=== PATIENT | female | born 1955 | race Caucasian/White ===

== ENCOUNTER → 2020-05-11 13:14 | Outpatient (CLI) | payer MEDICARE, SELFPAY ==
[2020-04-29 14:03] VITALS: BMI 27.1
--- NOTE | 2020-05-11 13:16 | MRI_ITS ---
STUDY: BILATERAL BREAST MR WITHOUT AND WITH CONTRAST REASON FOR EXAM: Female, 64 years old. Hardness and amp; Lumps LEFT breast, history of LEFT breast CA in 1999 with saline implants TECHNIQUE: Multi-sequence multi-echo imaging of both breasts was performed with a dedicated breast coil. T1-weighted and T2-weighted images were performed before the administration of contrast. T1-weighted images were also performed after the administration of IV Yes without complications. COMPARISON: None. Patient reportedly has had no recent exams. I have made multiple request to obtain prior films explaining the delay in the dictation. FINDINGS: RIGHT BREAST: The breast tissue is scattered fibroglandular densities with no background enhancement. There are no abnormal enhancing masses or areas of non-mass enhancement in the right breast. The breast implant appears to be intact. LEFT BREAST: The breast tissue is scattered fibroglandular densities with minimal background enhancement. There are several abnormal enhancing masses seen in the superior, inferior and medial aspect of the left breast. These masses could represent new or recurrent malignancy. Further workup with mammography and ultrasound is recommended for further evaluation. There are radial folds within the implant. There are no enlarged or abnormal lymph nodes. There is no abnormality in the visualized regions of the chest or liver. MRI/Breast Bilateral W/O and W IMPRESSION: Dedicated bilateral mammogram and an ultrasound of the entire left breast is recommended for further evaluation of the masses. The masses could represent new or recurrent malignancy. CATEGORY: BIRADS Category 0: Incomplete. Need additional imaging evaluation. A letter regarding these results will be sent to the patient by the facility within 30 days. Electronically Signed: Gely Heller DO at 22:02 EDT Tel , Service support ,
[2020-05-11 14:01] LABS: EGFR FINGERSTICK > 60.0000 mL/min (>60)
== END ==
PROVIDERS: Referring Provider Surgery; Visit Provider Surgery
DX: C50.912 Malignant neoplasm of unspecified site of left female breast (principal); N64.4 Mastodynia; N63.20 Unspecified lump in the left breast, unspecified quadrant; N65.0 Deformity of reconstructed breast; N65.1 Disproportion of reconstructed breast; Z98.82 Breast implant status; T66.XXXS Radiation sickness, unspecified, sequela; T85.44XA Capsular contracture of breast implant, initial encounter
CPT/HCPCS: 77049; A9575; A4216; C8908

== ENCOUNTER → 2020-05-25 06:55 | Outpatient (CLI) | payer MEDICARE, SELFPAY ==
[2020-04-29 14:03] VITALS: BMI 27.1
--- NOTE | 2020-05-25 10:14 | US_ITS ---
STUDY: ULTRASOUND BREAST - LEFT REASON FOR EXAM: Female, 64 years old. Abnormal screening mammogram an MRI examination of the left breast. TECHNIQUE: Axial and longitudinal images of the LEFT breast were performed with a high resolution ultrasound transducer. # OF IMAGES: 92 COMPARISON: Comparison is made with prior mammogram done earlier today as well as prior MRI scan dated 05-11-20. FINDINGS: LEFT Breast: The entire left breast was examined by ultrasound. At the 10 o''clock position of the breast at 6 cm from nipple, there is a 3.5 cm x 1.2 cm complex solid and cystic mass. A similar appearing nodule measuring 2.4 cm x 2.6 x 0.7 cm is seen at the 7 o''clock position of the breast at 7 cm from nipple. There is a 1.1 cm x 1 cm x 0.4 cm hypoechoic irregular nodule at the 3 o''clock position breast at 6 cm from the nipple. Adjacent to this, a similar appearing 6 mm x 6 mm x 3 mm nodule is seen. The underlying breast implant as irregular contour. Rupture should BE ruled out. US/Breast Complete Unilateral IMPRESSION: Multiple irregular complex nodules seen as described. Biopsy should be considered. Irregularity of the contour of the underlying breast prostheses. ASSESSMENT CATEGORY: BIRADS Category 4: Suspicious - Biopsy Should Be Considered. A letter regarding these results will be sent to the patient by the facility within 30 days. Electronically Signed: Osmani Martin, at 15:25 EDT , Service support ,
== END ==
PROVIDERS: Referring Provider Surgery; Visit Provider Surgery
DX: R92.8 Other abnormal and inconclusive findings on diagnostic imaging of breast (principal); N63.20 Unspecified lump in the left breast, unspecified quadrant
CPT/HCPCS: 76641; 76642

== ENCOUNTER → 2020-05-25 08:43 | Outpatient (CLI) | payer MEDICARE, SELFPAY ==
[2020-04-29 14:03] VITALS: BMI 27.1
--- NOTE | 2020-05-25 08:44 | BI_ITS ---
MAMMOGRAPHY - BILATERAL DIAGNOSTIC REASON FOR EXAM: Female, 64 years old. Left breast lumps. Follow-up to MRI examination. PERTINENT HISTORY: Personal history of breast cancer. History of prior left lumpectomy with radiation treatment. Bilateral breast implants. TECHNIQUE: Digital bilateral breast manish (3D mammographic acquisition) in the CC and MLO projections. 2-D mediolateral oblique (MLO) and craniocaudad (CC) views of both breasts were obtained. CAD: Full Field Digital Mammography with Computer Added Detection was performed. COMPARISON: No comparison mammograms available at this time. If any prior films become available, an addendum to this report can be generated. FINDINGS: Breast Composition: The breasts are heterogeneously dense, which may obscure small masses. There is evidence of both skin thickening overlying the left breast with a 1.4 cm x 1 cm nodule in the inferior medial portion of the left breast. There is deformity of the underlying breast implant. Dense calcifications are seen in the right breast. No focal cluster is seen. Correlation with ultrasound is recommended. No other significant abnormalities are identified. BI/DIAG MAMM W/CAD, BILAT IMPRESSION: Deformity of the left breast with skin thickening and nodular density along the inferior medial aspect of the breast. Correlation with ultrasound is recommended. ASSESSMENT CATEGORY: BIRADS Category 0: Incomplete. Need additional imaging evaluation. A letter regarding these results will be sent to the patient by the facility within 30 days. Approximately 10% of breast cancers are not detected by mammography. A normal mammogram should not delay biopsy of a clinically suspicious abnormality. Electronically Signed: Osmani Martin, at 11:16 EDT , Service support ,
== END ==
PROVIDERS: Referring Provider Surgery; Visit Provider Surgery
DX: N63.20 Unspecified lump in the left breast, unspecified quadrant (principal); Z85.3 Personal history of malignant neoplasm of breast
CPT/HCPCS: 76641; 76642; 77062; 77066; G0279

== ENCOUNTER → 2020-06-28 13:31 | Outpatient (CLI) | payer MEDICARE, SELFPAY ==
[2020-06-21 13:16] VITALS: BMI 26.6
--- NOTE | 2020-06-28 | IMM_PTH ---
PATIENT: BALDOMERO LUNDBERG LOC: [facility]#:[id number] AGE/SX: 69/F ROOM: RE06/28/[address]: Dr. Carrington Cornejo MD : 1955 BED: DIS: SPEC #: [id number] RECD: 06/30/20 13:19 STATUS: CAROLINE REQ #: [id number] KEVIN: 06/28/20 00:[address]: Carrington Cornejo DEPT: IMMUNOHISTOCHEMISTRY RECD BY: Gisela Reis ENTERED: 06/30/20 13:20 SP TYPE: IMMUNO OTHR DR: Abi Lee, ARNAV-Ney Tissues: A - Left breast, NOS B - Left breast, NOS C - Left breast, NOS Procedures: MACRO (initial) Vimentin (add) Pankeratin (add) PHYSICIAN & INSTITUTION [place] [id number] SPECIMEN INFORMATION: Tissue Source: A - Left breast 3 o'clock, B - Left breast 7 o'clock, C - Left breast 10 o'clock Clinical Info: Left breast lesions x3 Specimen Number: [id number] A-C CPT code: 64712 x3, 01676 x6 METHODOLOGY: Deparaffinized sections of prefer/formalin-fixed tissue or PAP/DQ stained slides are incubated with monoclonal/polyclonal antibodies/oligonucleotide probes. Localization is made via biotin free immunoperoxidase method. Appropriate controls are performed and reacted as expected. Results on target cell population are indicated in the following table: RESULTS: ANTIBODY / CLONE RESULT Block A Macro (HAM-56) positive AE1-3 (AE1/AE3/PCK26) negative Vimentin (V9) positive Block B Macro (HAM-56) positive AE1-3 (AE1/AE3/PCK26) negative Vimentin (V9) positive Block C Macro (HAM-56) positive AE1-3 (AE1/AE3/PCK26) negative Vimentin (V9) positive These tests were developed and their performance characteristics determined by [facility]. They may not have been cleared or approved by the U.S. Food and Drug Administration. The FDA has determined that such clearance or approval is not necessary. The above immunohistochemical/dualISH markers are ordered and reviewed by the Pathologist. INTERPRETATION: A. Left breast, 3 o'clock, biopsy: No evidence of malignancy. B. Left breast, 7 o'clock, biopsy: No evidence of malignancy. C. Left breast, 10 o'clock, biopsy: No evidence of malignancy. AM:enmanuel 07/01/20
--- NOTE | 2020-06-28 13:43 | US_ITS ---
ULTRASOUND GUIDED CORE BIOPSY REASON FOR EXAM: Female, 64 years old. Lt breast mass x 3 PERTINENT HISTORY: 3 lesions in the right breast. COMPARISON: None. TECHNIQUE: (All elements of maximal sterile barrier technique followed, including US elements as applicable) Under direct sonographic guidance, the surgeon performed core biopsies of the lesion at the 3 o''clock, 5 o''clock and 10 o''clock position. IMPRESSION: Ultrasound guided core biopsy of a mass in the LEFT breast at the 3 o''clock, 5 o''clock and 10 o''clock position. without complication. Electronically Signed: Osmani Martin, at 16:05 EDT , Service support , ULTRASOUND GUIDED CORE BIOPSY REASON FOR EXAM: Female, 64 years old. Lt breast mass x 3 PERTINENT HISTORY: Abnormal breast ultrasound. COMPARISON: None. TECHNIQUE: (All elements of maximal sterile barrier technique followed, including US elements as applicable) Under direct sonographic guidance, the patient underwent core biopsy by the surgeon at the 5 o''clock position of the breast. IMPRESSION: Ultrasound guided core biopsy of a mass in the LEFT breast at 5 o''clock position of the breast without complication. Electronically Signed: Osmani Martin, at 16:06 EDT , Service support , ULTRASOUND GUIDED CORE BIOPSY REASON FOR EXAM: Female, 64 years old. Lt breast mass x 3 PERTINENT HISTORY: Abnormal breast ultrasound. COMPARISON: Comparison is made with prior sonogram dated 05/25/2020. TECHNIQUE: (All elements of maximal sterile barrier technique followed, including US elements as applicable) Under direct sonographic guidance, the surgeon perform core biopsy of the breast lesion at the 10 o''clock position of the breast. US/US Breast Biopsy 1st Lesion IMPRESSION: Ultrasound guided core biopsy of a mass in the LEFT breast at 10 o''clock position of the breast without complication. Electronically Signed: Osmani Martin, at 16:06 EDT , Service support ,
--- NOTE | 2020-06-28 14:30 | BRBX_PTH ---
PATIENT: BALDOMERO LUNDBERG LOC: [facility]#:[id number] AGE/SX: 69/F ROOM: RE06/28/[address]: Dr. Carrington Cornejo MD : 1955 BED: DIS: SPEC #: [id number] RECD: 06/28/20 16:01 STATUS: CAROLINE AC #: [id number] KEVIN: 06/28/20 14:[address]: Carrington Cornejo DEPT: SURGICAL PATHOLOGY RECD BY: Goldy Vidal ENTERED: 06/29/20 09:07 SP TYPE: BREAST BX OTHR DR: Abi Lee, BIODIESEL PLANT MANAGER-C Tissues: A - Left breast, NOS B - Left breast, NOS C - Left breast, NOS Procedures: Surgery Specimen Level IV HEADER OPERATION: Left breast biopsy PRE-OP DIAGNOSIS: Three lesions TISSUE SUBMITTED: A - 3 o'clock, B - 7 o'clock, C - 10 o'clock MICROSCOPIC DIAGNOSIS A. Left breast, 3 o'clock, biopsy: Benign histiocytic proliferation and fibrosis. Skin with no pathologic change. See comment. B. Left breast, 7 o'clock, biopsy: Benign histiocytic proliferation and fibrosis. See comment. C. Left breast, 10 o'clock, biopsy: Benign histiocytic proliferation and fibrosis. See comment. AM:enmanuel 06/30/20 COMMENT A-C. Immunohistochemistry ([id number]) supports the above diagnosis. Case has been reviewed in consultation with Dr. Peraza who concurs with the above diagnosis. IDC:SJ MICROSCOPIC DESCRIPTION Slides are reviewed. GROSS DESCRIPTION A - Received in fixative is one container labeled with the patient name and designated left breast 3 o'clock. The specimen consists of multiple elongated fragments of lee-yellow fibroadipose tissue that in aggregate measure 1 x 0.3 x 0.1 cm. The entire specimen is submitted in one cassette. B - Received in fixative is one container labeled with the patient name and designated left breast 7 o'clock. The specimen consists of multiple elongated fragments of lee-yellow fibroadipose tissue that in aggregate measure 1.5 x 0.3 x 0.1 cm. The entire specimen is submitted in one cassette. C - Received in fixative is one container labeled with the patient name and designated left breast 10 o'clock. The specimen consists of two elongated fragments of lee-yellow fibroadipose tissue that in aggregate measure 0.5 x 0.2 x 0.1 cm. The entire specimen is submitted in one cassette. / SJ:enmanuel 06/29/20 TC:5 CPT: 92859 x3
--- NOTE | 2020-06-28 15:02 | HP.PCM_ITS ---
History and Physical Date of Admission: 06/28/20 [facility] [address] [place], [place] [id number] OFFICE VISIT Date of Service: 06/21/20 MR#: [id number] Acct: [id number] Name: BALDOMERO LI Rep #: [id number] : 1955 Provider: Dr. Tushar Cornejo MD Age/Sex: 64/F Location: [facility] Status: Signed Intake Vital Signs 06/21/20 BMI 26.6 06/21/20 Height 5 ft 1 in 06/21/20 Weight: 145 lb 06/21/20 BMI 27.3 06/21/20 BP 102/63 06/21/20 Blood Pressure Location Lt brachial 06/21/20 Position Sitting Intake Visit Reasons: LUMP LEFT BREAST Chief Complaint: left breast masses Is patient in pain?: Yes (breast pain) Allergies No Known Allergies Allergy (Verified 06/21/20 13:14) Medications aspirin 81 mg tablet,delayed release 81 mg PO DAILY 04/29/20 [History Confirmed 06/21/20] atorvastatin 80 mg tablet 80 mg PO DAILY 04/29/20 [History Confirmed 06/21/20] clopidogrel 75 mg tablet 75 mg PO DAILY 04/29/20 [History Confirmed 06/21/20] lisinopril 10 mg tablet 10 mg PO DAILY 04/29/20 [History Confirmed 06/21/20] metoprolol succinate 100 mg capsule sprinkle, ext. release 24 hr 100 mg PO DAILY 04/29/20 [History Confirmed 06/21/20] sertraline 100 mg tablet 100 mg PO DAILY 04/29/20 [History Confirmed 06/21/20] biotin 10,000 mcg capsule 10,000 mcg PO DAILY cap 06/16/20 [History Confirmed 06/21/20] pantoprazole 40 mg tablet,delayed release 40 mg PO DAILY 06/16/20 [History Confirmed 06/21/20] [facility] Medical History Peripheral vascular disease (Chronic) NSTEMI (non-ST elevated myocardial infarction) (Resolved ~09/2016) Atherosclerosis of coronary artery of [place] heart without angina pectoris (Chronic) Hyperlipidemia (Chronic) Essential hypertension (Chronic) Former smoker (Chronic) Cancer of left breast (Chronic) Disproportion of reconstructed breast (Chronic) Deformity of reconstructed breast (Chronic) Breast ptosis (Chronic) Capsular contracture of breast implant (Chronic) Late effect of radiation (Chronic) Mass of left breast (Chronic) Pain of left breast (Chronic) Breast lump in female (Acute) Allergies (Chronic) Anxiety (Chronic) Carpal tunnel syndrome (Chronic) Depression (Chronic) GERD (gastroesophageal reflux disease) (Chronic) Hearing problem (Chronic) History of breast cancer (Resolved) Cancer (Inactive) Heart disease (Inactive) Vascular disease (Inactive) Surgical History History of coronary artery stent placement (Resolved 10/21/16) S/P percutaneous transluminal angioplasty (INFORMATION SECURITY CONSULTANT) with stent placement (Acute) History of breast implant (Chronic) History of breast implant removal (Chronic) History of lumpectomy of left breast (Chronic) History of appendectomy (Resolved) History of cholecystectomy (Resolved) History of partial hysterectomy (Resolved) History of tonsillectomy (Resolved) Family History Father Diabetes CVA (cerebral vascular accident) Alzheimer's disease Mother Diabetes Heart disease Hypertension Myocardial infarction Brother Diabetes Myocardial infarction Brother Hypertension Sister Diabetes Social History (Updated 06/27/20 @ 12:[address] Carrington Cornejo MD) Smoking Status: Former smoker Electronic Cigarette Use: with nicotine alcohol intake: never substance use type: does not use caffeine: Yes Type: carbonated beverages Number of servings: 2, coffee additional social history: DOES TAKE ASPIRIN DOES TAKE IBUPROFEN HPI HPI HPI: BALDOMERO LI, is a 64 F who presents to the office today for HPI HPI Surgical H&P: Yes HPI: BALDOMERO LI, is a 64 F who presents to the office today for Evaluation of an abnormal mammogram and ultrasound to her left breast. Patient's ultrasound of her left breast was completed on 05/25/2020. This was done in a work-up from her plastic surgeon who is going to be removing her implants. The ultrasound findings showed there to be 3 areas of irregularity. At the 10 o'clock position 6 cm from the nipple there was a 3 cm lesion at the 7 o'clock position 7 cm from the nipple there was a 2.6 cm lesion and at the 3 o'clock position there was a 1.1 cm subcutaneous irregularity noted. All of these need to be biopsied prior to having her implant removed to prove that they are benign. ROS General General: Yes fatigue and breast cancer; no weight change, appetite, colon cancer or weakness HEENT HEENT: No difficulty swallowing, eye injury, eye surgery, swollen glands or hoarseness Endo Endocrine: No thyroid disease, diabetes mellitus, thyroid cancer, Hair loss, heat intolerance or cold intolerance Skin Skin: No rash or changing moles Breast Breast: No left breast lump, right breast lump, nipple discharge, breast pain, abnormal mammogram, abnormal US or breast enlargement Musc Musculoskeletal: No back problems, arthritis, rheumatoid arthritis, gout or joint pain Cardio Cardiovascular: Yes heart attack and heart stent; no murmur, pacemaker, heart disease, atrial fibrillation, high blood pressure, palpitations, shortness of breat with exertion or chest pain Psych Psychiatric: Yes depression and anxiety; no hearing voices Resp Respiratory: Yes shortness of breath, No sleep apnea, No cough, No COPD, No asthma, No emphysema, No wheezing Gastro Gastrointestinal: No abdominal pain, No nausea or vomiting, No diarrhea, No constipation, No blood in stool, Yes acid reflux, No hemorrhoids, No ulcers, No gallbladder problem, No black,tarry stools Prashanth Hematologic: Yes blood thinners, No blood disorders, No bleeding, No anemia, No blood clots Neuro Neurologic: No system reviewed and no additional complaints, except as docu, No as per HPI, No abnormal walking, No abnormal hearing, No abnormal movements, No abnormal speech, No behavioral changes, No burning sensations, No confusion, No seizure-like activity, No unsteadiness, No dizziness, No localized weakness, No frequent falls, No headache(s), No lack of coordination, No loss of vision, No memory loss, No numbness, No other visual disturbances, No radiating pain, No restless legs, No sensory deficit, No fainting, No tingling, No tremor(s), No weakness, No other Exam [facility] Head: normal to inspection, normocephalic, atraumatic Mouth: oropharynx normal, moist mucous membranes Eyes General: appearance normal, both eyes and all related structures Sclera: sclerae normal Neck Neck: trachea midline, no lymphadenopathy noted Neck mass: No Thyroid: thyroid normal Lymphatic: no lymphadenopathy noted Chest Breast inspection: normal inspection of the breasts Breast Palpation: No nipple discharge Other: There are 3 palpable lesions identified at the 10 o'clock position 7 o'clock position and 3 o'clock position. There is no skin changes. There is no nipple discharge. Axillary exam is negative. Resp Other: Respiratory Exam: Deferred Cardio Heart Sounds: no murmurs Other: Cardiac Exam: Deferred GI Other: GI Exam: Deferred Other: Rectal Exam: Deferred Extrem Other: Extremity Exam: Deferred Assessment & Plan Problems 1. Abnormal mammogram of left breast R92.8 Plan My plan is to do an ultrasound-guided needle core biopsy of all these 3 lesions. Wrist benefits have been reviewed and the patient agrees to proceed.I have discussed above with the patient. I have recommended ultrasound guided needle core breast biopsy. I have described the procedure to the patient. I have discussed with the patient that sometimes the ultrasound lesion may be artifact and is user dependent and therefore prior to undergoing the procedure, the patient will have a definitive US to ensure that the lesion is truly present and is not artifact. A marker clip will be placed to identify the location. Patient has been counseled to the risks/benefits of the procedure. I have explained the risks of the surgery, including but not limited to: infection, bleeding, injury to any blood vessels/nerves, scar tissue, missing the lesion, further surgery, etc. - the patient understands and agrees to proceed. I have answered all of the patient's questions to her satisfaction and she has no further questions. Coding Level of Care Code Off vis,new,level 3 Diagnoses Abnormal mammogram of left breast R92.8 COVID (Procedure Consent) Procedure Criteria Procedure Criteria: Yes Elective The surgeon/proceduralist and patient have discussed in detail the risk of exposure to and/or potential harm posed by the COVID-19 virus with having a surgery/procedure at this time versus the risk of? delaying the surgery/procedure. It is not possible to know either the risk of delaying the surgery or procedure or chance of getting an infection with perfect accuracy, but a joint decision was made between the patient and the surgeon/proceduralist ?to proceed at this time with the scheduled surgery/p rocedure as indicated on the consent form. 06/27/20 1213 <Electronically signed by Carrington chiu MD> Date _ Carrington Pace Signature: Date (if applicable) CC: ERICKA Lee; Dr. Gary Lynch MD I have re-examined the patient. There are no clinical changes since date of exam.
--- NOTE | 2020-06-28 15:03 | OP.PCM_ITS ---
Problem List (1) Abnormal mammogram of left breast Status: Acute Report of Operation Date of Procedure: 06/28/20 Pre-Operative Diagnosis: Mammogram left breast Post-Operative Diagnosis: Same Surgery/Procedure Performed:: Ultrasound-guided needle core biopsy left breast x3. 3:00, 7:00, 10:00. Type of Anesthesia:: Local Specimen's removed: 3 breast biopsy specimens Estimated Blood Loss (mL): < 25 cc Description of Procedure: Patient was brought into the ultrasound unit. We ultrasound the 3:00 7:00 and 10 o'clock position. All 3 lesions were identified. I started at the 3 o'clock position. Identified the lesion that I could palpate on the skin with the ultrasound and marked the breast accordingly. I prepped the breast with chlorhexidine I injected 1% lidocaine plain was made. I took a needle core biopsy of this x2. I went to the 7:00 lesion identified it with ultrasound prepped the skin with chlorhexidine injected local made a skin luis and again took to ultrasound- guided needle core biopsies. 10 o'clock position lesion was identified prepped the skin with chlorhexidine. Injected 1% lidocaine plain. Small skin luis was made. Under ultrasound guidance a single needle core biopsy was obtained. Brownish fluid came out and this was a uncomfortable biopsy for her I took the cultures of anaerobic and aerobic of this brownish fluid. Once we had all the fluid drained out of it she said that it did feel better. No clips were left in any of these biopsy cavities. Steri-Strips were applied to the 3:00 and 7 o'clock position and we left the 10 o'clock position open so that if it needed to drain it could. We will want the patient to shower clean the area off with peroxide. And she wi ll follow back up with her plastic surgeon. - Admit VTE Documentation VTE Present on Admission: No VTE Mechan Device Prophylaxis: None VTE Pharm Prophylaxis ordered?: No Reason prophylaxis not ordered:: Treatment Not Indicated [id number]: [id number] Bx breast 1st lesion us imag - Add 11/06/2007 4?2
--- NOTE | 2020-06-28 15:37 | NURSING ---
reviewed nursing care instructions for home care reinforced, x3 dressings to care for, steri strips at 3 and 7 oclock with opsite and 10 oclock with only a opsite, instructed patient the 10 oclock incision may drain and gave her the appropriate dressing for care. instructed patient on s/s of infection and to call if she see's any of these signs. to call the doctor, or radiology nurse if needed. vs stable on discharge 117/60 pulse of 78, resp 16 ad pulse ox at 98%
== END ==
PROVIDERS: PCP Nurse Practitioner Family; Referring Provider Surgery; Visit Provider Surgery
DX: R92.8 Other abnormal and inconclusive findings on diagnostic imaging of breast (principal); Z79.82 Long term (current) use of aspirin; Z87.891 Personal history of nicotine dependence; N63.20 Unspecified lump in the left breast, unspecified quadrant; N64.4 Mastodynia; I73.9 Peripheral vascular disease, unspecified; I25.2 Old myocardial infarction; I25.10 Atherosclerotic heart disease of native coronary artery without angina pectoris; E78.5 Hyperlipidemia, unspecified; I10 Essential (primary) hypertension; K21.9 Gastro-esophageal reflux disease without esophagitis; F32.9 Major depressive disorder, single episode, unspecified; Z85.3 Personal history of malignant neoplasm of breast; N65.0 Deformity of reconstructed breast; N65.1 Disproportion of reconstructed breast
CPT/HCPCS: 19083; 19084; 87070; 87075; 87077; 87186; 87205; 88305; 88341; 88342

== ENCOUNTER 2021-08-10 10:41 | Emergency (ER) | payer MEDICARE, SELFPAY ==
[2021-08-10 10:44] VITALS: BP 163/82; PULSE 76; RESP 16; TEMP 36.4; O2SAT 98; BMI 26.4
--- NOTE | 2021-08-10 12:22 | VDLE_ITS ---
Reason For Study: LLE pain Procedure LEFT This is a venous duplex using B-mode, color GSV is normal. flow and spectral Doppler. CFV is compressible, spontaneous, phasic, Exam performed in department. competent, and demonstrates normal The exam was diagnostic. augmentation. A preliminary report was called and/or faxed FV is compressible, spontaneous, phasic, to ED @ 12:55 pm. competent and demonstrates normal augmentation. POP V is compressible, spontaneous, phasic, competent and demonstrates normal augmentation. T/P Trunk is compressible. PTV is compressible. LT PerV is compressible. VL/Venous Duplex US, Unilateral Interpretation Summary There is no evidence of left lower extremity deep vein thrombosis. Left great s aphenous vein appears patent and compressible segmentally. Ordering Physician: Brooke Gonzalez Referring Physician: Katy Rossi Performed By: Gabriela Contreras RDCS, RVT
[2021-08-10] MEDS: Acetaminophen 325 MG Tablet 650 MG PO (12:39)
--- NOTE | 2021-08-10 14:10 | EDS_ITS ---
HPI History of Present Illness Chief Complaint: Lower Extremity Injury Informant: patient Narrative Narrative: Patient evaluated for left leg pain. Patient she is cleaning out her car 2 weeks ago when she started have pain in her left leg. She states is pretty diffuse and goes up into her left lower back and buttocks. Tylenol does cause some relief but does not completely make it go away. She is been using heat. She states she is never had any pain like this before. She denies any other injuries. She does have a history of peripheral vascular disease and a stent in her left leg so she was worried that this could be causing her pain. She denies any swelling of her legs. No numbness or tingling. No other complaints at this time. [facility] Medical History (Updated 08/10/21 @ 14:[address] Brooke Gonzalez DO) Allergies Anxiety Atherosclerosis of coronary artery of [place] heart without angina pectoris Breast lump in female Breast ptosis Cancer Cancer of left breast Capsular contracture of breast implant Carpal tunnel syndrome Deformity of reconstructed breast Depression Disproportion of reconstructed breast Essential hypertension Former smoker GERD (gastroesophageal reflux disease) Hearing problem Heart disease History of breast cancer Hyperlipidemia Late effect of radiation Mass of left breast NSTEMI (non-ST elevated myocardial infarction) (~09/2016) Pain of left breast Peripheral vascular disease Vascular disease Home Medications aspirin 81 mg tablet,delayed release 81 mg PO DAILY 04/29/20 [History Last Taken Unknown] atorvastatin 80 mg tablet 80 mg PO DAILY 04/29/20 [History Last Taken Unknown] clopidogrel 75 mg tablet 75 mg PO DAILY 04/29/20 [History Last Taken Unknown] lisinopril 10 mg tablet 10 mg PO DAILY 04/29/20 [History Last Taken Unknown] metoprolol succinate 100 mg capsule sprinkle, ext. release 24 hr 100 mg PO DAILY 04/29/20 [History Last Taken Unknown] sertraline 100 mg tablet 100 mg PO DAILY 04/29/20 [History Last Taken Unknown] biotin 10,000 mcg capsule 10,000 mcg PO DAILY cap 06/16/20 [History Last Taken Unknown] pantoprazole 40 mg tablet,delayed release 40 mg PO DAILY 06/16/20 [History Last Taken Unknown] cyclobenzaprine 10 mg PO TID PRN #20 tab 08/10/21 [Rx Last Taken Unknown] Allergy/AdvReac Type Severity Reaction Status Date / Time No Known Allergies Allergy Verified 08/10/21 10:43 Family History Father Diabetes CVA (cerebral vascular accident) Alzheimer's disease Mother Diabetes Heart disease Hypertension Myocardial infarction Brother Diabetes Myocardial infarction Brother Hypertension Sister Diabetes Surgical History History of appendectomy History of breast implant History of breast implant removal History of cholecystectomy History of coronary artery stent placement (10/21/16) History of left breast biopsy (~06/2020) History of lumpectomy of left breast History of partial hysterectomy History of tonsillectomy S/P percutaneous transluminal angioplasty ([employer]) with stent placement Social History (Updated 08/07/20 @ 18:[address] Gary Lynch MD) Smoking Status: Current every day smoker tobacco type: e-cigarettes Electronic Cigarette Use: with nicotine alcohol intake: never substance use type: does not use caffeine: Yes Type: carbonated beverages Number of servings: 2 and coffee additional social history: DOES TAKE ASPIRIN DOES TAKE IBUPROFEN ROS ROS ED Constitutional Constitutional ED: Denies chills, fever(s) or malaise Eyes Eyes: Denies blurry vision or loss of vision ENT ENT ED: Denies rhinorrhea or sore throat Cardiovascular Cardiovascular: Denies chest pain or dizziness Respiratory/Chest Respiratory/Chest: Denies cough or dyspnea Gastrointestinal Gastrointestinal: Denies nausea or vomiting Genitourinary Genitourinary ED: Denies dysuria or hematuria Musculoskeletal Musculoskeletal: Reports arthralgias, back pain and myalgias Integumentary Denies rash or wounds Neurologic Neurologic: Denies focal weakness or headache(s) Psychiatric Psychiatric: Denies anxiety or behavioral changes EXAM Physical Exam Const Vital Signs: 08/10/21 10:44 08/10/21 14:29 Temperature 97.5 F L Temperature Source Temporal Pulse Rate 76 73 Respiratory Rate 16 16 Blood Pressure 163/82 H 147/68 H Blood Pressure Mean 109 Pulse Ox 98 99 Oxygen Delivery Method Room Air Positive well nourished and well developed General Appearance ED: well developed HEENT normocephalic and atraumatic Eyes PERRL Neck full ROM and supple Chest Wall inspection of chest normal Resp normal respiratory effort and clear to auscultation bilaterally Cardio regular rate, regular rhythm and no murmurs Cardio Narrative: 2+ bilateral DP pulses, brisk capillary refill of the left foot GI non-tender, non-distended and no masses Palpation: soft Back/Spine no CVA tenderness General Back: Negative for swelling Lumbar Spine / Lower Back: straight leg raise positive - left; Negative for lumbar spinal tenderness Extremity normal to inspection and full ROM Extremity Narrative: No palpable cords. No pinpoint area of tenderness. Patient does point to her fibular head is an area that has caused pain but she currently does not have any pain there. Compartments are soft in the quadriceps as well as the calf muscles Neuro oriented x3, CN's II-XII intact bilaterally and moves all extremities Sensorium / Orientation: alert Motor Exam: strength 5/5 throughout; Negative for general weakness Psych mental status grossly normal Skin no wounds Lesions: no lesions Rashes: no rashes MDM MDM MDM Narrative Medical decision making narrative: Patient evaluated for 2 weeks of left leg pain. She feels the pain is coming more so from her leg however on exam I feel that it is likely emerging from her back and radiating down. Patient peers nontoxic and is neurovascularly intact. She has good distal pulses. I do not think she has an acute occlusion of her stent in her leg. DVT ultrasound does not show any acute process. It is one-sided have a lower suspicion for rhabdomyolysis. I do not think blood work is indicated at this time. Patient will be discharged home with a course of Flexeril to see if this helps with her pain. She is also counseled to take NSAIDs for the pain. Patient is counseled on signs and symptoms requiring return to the emergency room. Patient verbalizes agreement and understand this plan. Patient discharged home in stable and improved condition. Lab Data Attestation: I reviewed the patient's lab results. Radiography Diagnostic Testing: Clinical Impression(s) from Imaging Studies Venous Doppler Study 08/10/21 12:22 Interpretation Summary There is no evidence of left lower extremity deep vein thrombosis. Left great saphenous vein appears patent and compressible segmentally. Ordering Physician: Brooke Gonzalez Referring Physician: Katy Rossi Performed By: Gabriela Contreras RDCS, RVT Discharge Plan Triage Chief Complaint: Lower Extremity Injury ED Provider: Brooke Gonzalez Dx/Rx/DC Orders Clinical Impression: Low back pain radiating to left lower extremity Instructions: ED Back Pain (Acute or Chronic), ED Pain, Acute, Uncertain Cause Prescriptions: New cyclobenzaprine 10 mg tablet 10 mg PO TID PRN (Reason: muscle spasm) Qty: 20 RF: 0 No Action atorvastatin 80 mg tablet 80 mg PO DAILY RF: 0 clopidogrel 75 mg tablet 75 mg PO DAILY RF: 0 sertraline 100 mg tablet 100 mg PO DAILY RF: 0 lisinopril 10 mg tablet 10 mg PO DAILY RF: 0 aspirin [Adult Aspirin Regimen] 81 mg tablet,delayed release (DR/EC) 81 mg PO DAILY RF: 0 metoprolol succinate 100 mg capsule,sprinkle,ER 24hr 100 mg PO DAILY RF: 0 biotin 10,000 mcg capsule 10,000 mcg PO DAILY RF: 0 pantoprazole 40 mg tablet,delayed release (DR/EC) 40 mg PO DAILY RF: 0 Primary Care Provider: Katy Foreman Referrals: Katy Foreman [Primary Care Provider] - Activity Restrictions/Additional Instructions: You may take ibuprofen for the short-term to help with the pain as well. I suspect you have a nerve in your back or muscle spasm in your back that is causing your leg pain. Disposition Disposition: Home, Self Care Discharge Date/Time: 08/10/21 14:29
[2021-08-10 14:29] VITALS: BP 147/68; PULSE 73; RESP 16; O2SAT 99
== END 2021-08-10 14:29 | disposition home or self-care (01) ==
PROVIDERS: Emergency Provider Emergency Medicine
DX: M54.50 Low back pain, unspecified (principal); M79.605 Pain in left leg; F17.290 Nicotine dependence, other tobacco product, uncomplicated; I25.10 Atherosclerotic heart disease of native coronary artery without angina pectoris; I10 Essential (primary) hypertension; E78.5 Hyperlipidemia, unspecified; Z85.3 Personal history of malignant neoplasm of breast; I25.2 Old myocardial infarction; I73.9 Peripheral vascular disease, unspecified; Z79.82 Long term (current) use of aspirin
CPT/HCPCS: 93971; 99283

== ENCOUNTER → 2021-08-19 14:34 | Outpatient (CLI) | payer MEDICARE, SELFPAY ==
--- NOTE | 2021-08-19 14:45 | RAD_ITS ---
STUDY: X-RAY - LEFT KNEE REASON FOR EXAM: Female, 65 years old. PAIN IN LEFT KNEE TECHNIQUE: 4 view(s) of the knee. COMPARISON: None. FINDINGS: Normal visualized distal femur. Normal visualized proximal tibia and fibula. Normal proximal tibiofibular articulation. Normal medial femorotibial compartment. Normal lateral femorotibial compartment. Normal patellofemoral articulation. There is no demonstrated joint effusion. There are atherosclerotic calcifications. RAD/Knee 4 or More Views IMPRESSION: Normal x-ray examination of the knee. Electronically Signed: Bry Seay MD (Brooks) at 16:05 EDT , Service support ,
[2021-08-19 16:11] LABS: ALB/GLOB Ratio 1.2 RATIO (0.9-2.4); AST(SGOT) 24 U/L (15-37); Alanine Aminotransfer ALT/SGPT 29 U/L (13-56); Albumin, Serum 4.2 g/dL (3.2-5.0); Alkaline Phosphatase 88 U/L (45-117); Anion Gap 5 (5-15); BUN 14 mg/dL (7-18); BUN/Creat Ratio 16.3 RATIO (10-20); Calcium,Total 9.3 mg/dL (8.5-10.1); Chloride 105 mmol/L (98-107); Creatinine, Serum 0.86 mg/dL (0.55-1.02); EST Glomerular Filtration Rate 70 mL/min (>60); Est Glom Filt Rate - Afr Amer 85 mL/min (>60); Globulin 3.6 g/dL (2.2-4.2); Glucose 105 mg/dL (74-106); Potassium 4.1 mmol/L (3.5-5.1); Protein, Total 7.8 g/dL (6.4-8.2); Sodium Level 139 mmol/L (136-145)
== END ==
PROVIDERS: Referring Provider Nurse Practitioner Adult Health; Visit Provider Nurse Practitioner Adult Health
DX: M25.562 Pain in left knee (principal); I10 Essential (primary) hypertension
CPT/HCPCS: 36415; 73564; 80053

== ENCOUNTER → 2021-10-06 08:53 | Outpatient (CLI) | payer MEDICARE, SELFPAY ==
--- NOTE | 2021-10-06 08:56 | AAVD_ITS ---
Reason For Study: Atherosclerosis Aorta Measurements Aorta Doppler Measurements Proximal aorta measures1.48 x 1.44cm. in cross- Peak systolic flow velocities within the proximal sectional axis. aorta measure 60 cm/sec. Proximal aorta measures1.48cm. in longitudinal Peak systolic flow velocities within the mid aorta axis. measure 64.4 cm/sec. Mid aorta measures1.31 x 1.29cm. in cross- Peak systolic flow velocities within the distal sectional axis. aorta measure 86.9 cm/sec. Mid aorta measures1.30cm. in longitudinal axis. Distal aorta measures1.46 x 1.43cm. in cross- sectional axis. Distal aorta measures1.45cm. in longitudinal axis. Left Iliac Artery Left iliac artery measures 0.61 x 0.60 cm. in the cross-sectional axis. Left iliac artery measures 0.62 cm. in the longitudinal axis. Peak systolic velocity in the left iliac artery measures 108.8 cm/sec. Right Iliac Artery Right iliac artery measures 0.45 x 0.45 cm. in the cross-sectional axis. Right iliac artery measures 0.50 cm. in the longitudinal axis. Peak systolic velocity in the right iliac artery measures 125.3 cm/sec. Procedure Aorta IVC Iliac vasculature or bypass grafts 50062. Exam performed in department. VL/Abd Aortic/IVC Duplex scan Interpretation Summary No evidence of aneurysm or stenosis throughout the aortoiliac segment. Ordering Physician: Roly Monteiro Referring Physician: [facility] Performed By: Rina Bravo RVT
== END ==
LOC: US 08:54 → CVS 08:55
PROVIDERS: Referring Provider Surgery Vascular Surgery; Visit Provider Surgery Vascular Surgery
DX: I65.23 Occlusion and stenosis of bilateral carotid arteries (principal); I10 Essential (primary) hypertension; E78.00 Pure hypercholesterolemia, unspecified; M79.605 Pain in left leg; I77.1 Stricture of artery; I70.213 Atherosclerosis of native arteries of extremities with intermittent claudication, bilateral legs
CPT/HCPCS: 93978

== ENCOUNTER → 2021-10-11 09:49 | Outpatient (CLI) | payer MEDICARE, SELFPAY ==
--- NOTE | 2021-10-11 10:09 | ART_ITS ---
Reason For Study: stricture of artery Procedure A bilateral lower extremity continuous wave Doppler with analog waveform analysis and ankle brachial indexes. Left Segmental Pressures Left posterior tibial artery = 123mmHg. Left dorsalis pedis artery = 112mmHg. The left dorsalis pedis waveforms are triphasic. The left posterior tibial artery waveforms are triphasic. No LUE BP due to Hx of cancer with lymph removal per pt. Right Segmental Pressures Right brachial= 113mmHg. Right posterior tibial artery = 81mmHg. Right dorsalis pedis artery = 71mmHg. The right dorsalis pedis waveforms are biphasic. The right posterior tibial artery waveforms are biphasic. Indices The right ankle brachial index by the dorsalis pedis is .63. The right ankle brachial index by the posterior tibial artery is .72. The left ankle brachial index by the posterior tibial artery is 1.09. The left ankle brachial index by the dorsalis pedis is .99. VL/Ankle Brachial Index Interpretation Summary Right leg with mild occlusive disease with biphasic flow and an JOSEPH 0.72. Left leg with triphasic flow and an JOSEPH 1.09. Ordering Physician: Roly Monteiro Performed By: Colin Pickens RVT
--- NOTE | 2021-10-11 10:09 | CDU_ITS ---
Reason For Study: carotid stenosis Rt. Velocities/BP Lt. Velocities/BP Prox CCA 79.9/17.3 cm/sec. Prox CCA 78.7/12.6 cm/sec. Mid CCA 86.5/25.2 cm/sec. Mid CCA 73.0/14.5 cm/sec. Dist CCA 70.8/18.6 cm/sec. Dist CCA 74.0/17.3 cm/sec. Prox ICA 87.8/26.5 cm/sec. Prox ICA 68.3/20.1 cm/sec. Mid ICA 104.7/29.1 cm/sec. Mid ICA 58.9/19.2 cm/sec. Dist ICA 78.6/27.8 cm/sec. Dist ICA 65.5/20.1 cm/sec. Rt. ICA/CCA = 1.2. Lt. ICA/CCA = .9. Prox ECA 96.9/8.2 cm/sec. Prox ECA 85.3/12.6 cm/sec. Rt. Vert. 35.2/6.9 cm/sec. Lt. Vert. 48.5/16.3 cm/sec. Right Extracranial There is heterogeneous, irregular atherosclerotic plaque noted in the right common carotid artery. There is heterogeneous, irregular atherosclerotic plaque noted in the right internal carotid artery. There is heterogeneous, irregular atherosclerotic plaque noted in the right external carotid artery. Antegrade flow is noted in the right vertebral artery. Left Extracranial There is heterogeneous, irregular atherosclerotic plaque noted in the left common carotid artery. There is heterogeneous, irregular atherosclerotic plaque noted in the left internal carotid artery. There is heterogeneous, irregular atherosclerotic plaque noted in the left external carotid artery. Antegrade flow is noted in the left vertebral artery. Procedure Carotid Duplex 02419. This is a Carotid Duplex examination using B-mode, color flow and specral Doppler. The exam was diagnostic. Exam performed in department. VL/Carotid Duplex Ultrasound Interpretation Summary Mild (<50%) stenosis right extracranial internal carotid. Mild (<50%) stenosis left extracranial internal carotid. Flow within the vertebral arteries is antegrade bilaterally. Ordering Physician: Roly Monteiro Performed By: Colin Pickens RVT
== END ==
LOC: CVS 09:49
PROVIDERS: Referring Provider Surgery Vascular Surgery; Visit Provider Surgery Vascular Surgery
DX: I65.23 Occlusion and stenosis of bilateral carotid arteries (principal); I70.213 Atherosclerosis of native arteries of extremities with intermittent claudication, bilateral legs; I77.1 Stricture of artery; M79.605 Pain in left leg; E78.00 Pure hypercholesterolemia, unspecified; I10 Essential (primary) hypertension
CPT/HCPCS: 93880; 93922

== ENCOUNTER → 2022-10-04 | Outpatient (CLI) | payer MEDICARE, SELFPAY ==
[2022-10-04 11:34] LABS: Absolute Lymphocyte Count 1.87 X10^3/uL (0.83-4.51); Absolute Neutrophil Count 3.6 X10^3/uL (2.0-7.7); Basophil# 0.02 X10^3/uL; Basophil% 0.3 % (0-1); Eosinophil# 0.07 X10^3/uL; Eosinophils% 1.2 % (0-5); Lymphocyte # 1.87 X10^3/ul (0.83-4.51); Lymphocyte % 31.7 % (19-41); Mean Corp Hgb Conc 32.5 g/dL (32-36); Mean Corpuscular Hgb 30.3 pg (27.0-32.0); Mean Corpuscular Volume 93.2 fL (81-99); Mean Platelet Vol. 9.5 fl (6.2-12.0); Monocyte# 0.37 X10^3/uL; Monocyte% 6.3 % (0-10); NRBC Flagged by Analyzer 0 % (0-5); Neutrophil # 3.55 X10^3/uL (2.7-7.7); Neutrophil % 60.3 % (47-70); Platelet Count 272 K/mm3 (150-450); RBC Distribution Width CV 12.8 % (11.6-14.6); RBC Distribution Width SD 43.8 fl (35.1-43.9); Red Blood Count 4.29 M/mm3 (4.2-5.4); White Blood Count 5.9 K/mm3 (4.4-11.0)
[2022-10-04 12:10] LABS: ALB/GLOB Ratio 1.1 RATIO (0.9-2.4); AST(SGOT) 15 U/L (15-37); Alanine Aminotransfer ALT/SGPT 16 U/L (13-56); Albumin, Serum 3.9 g/dL (3.2-5.0); Alkaline Phosphatase 85 U/L (45-117); Anion Gap 2 (5-15); BUN 13 mg/dL (7-18); BUN/Creat Ratio 14.7 RATIO (10-20); Chloride 110 mmol/L (98-107); Cholesterol 184 mg/dL (200); Creatinine, Serum 0.88 mg/dL (0.55-1.02); EST Glomerular Filtration Rate 68 mL/min (>60); Est Glom Filt Rate - Afr Amer 82 mL/min (>60); Globulin 3.5 g/dL (2.2-4.2); Glucose 105 mg/dL (74-106); High Density Lipoprotein 53 mg/dL; Protein, Total 7.4 g/dL (6.4-8.2); Sodium Level 142 mmol/L (136-145); Triglycerides 209 mg/dL; Troponin-I HS 6 pg/mL (3.0-54.0); Very Low Density Lipoprotein 42 mg/dL (5-40)
== END | disposition home or self-care (01) ==
LOC: LAB 10:05
DX: I10 Essential (primary) hypertension (principal); Z95.5 Presence of coronary angioplasty implant and graft
CPT/HCPCS: 36415; 80053; 80061; 84484; 85025

== ENCOUNTER 2023-10-01 07:34 | Day surgery (SDC) | payer MEDICARE, SELFPAY ==
--- NOTE | 2023-10-01 | COLBX_PTH ---
PATIENT: BALDOMERO LUNDBERG LOC: EN U#:[id number] AGE/SX: 67/F ROOM: RE10/01/[address]: Dr. Meghann Cano MD : 1955 BED: DIS: 10/01/2023 SPEC #: [id number] RECD: 10/01/23 13:53 STATUS: CAROLINE REQ #: [id number] KEVIN: 10/01/23 00:[address]: Meghann Cano DEPT: SURGICAL PATHOLOGY RECD BY: Solange Simpson ENTERED: 10/01/23 13:53 SP TYPE: COLON BX OTHR DR: Katy [facility] Tissues: Ascending colon Procedures: Surgery Specimen Level IV HEADER OPERATION: Colonoscopy, biopsy PRE-OP DIAGNOSIS: Screening TISSUE SUBMITTED: Ascending polyp biopsy MICROSCOPIC DIAGNOSIS Ascending colon polyp, biopsy: Fragments of tubular adenoma. AM:enmanuel 10/02/2023 MICROSCOPIC DESCRIPTION Slides are reviewed. GROSS DESCRIPTION Received in fixative is one container labeled with the patient's name and designated ascending polyp biopsy. The specimen consists of multiple irregular fragments of light lee soft tissue that in aggregate measure 1.5 x 0.5 x 0.1 cm. The specimen is totally submitted in one cassette. / SJ:enmanuel 10/01/2023 TC:5 CPT: 54913
[2023-10-01 08:01] VITALS: BP 122/97; PULSE 64; RESP 16; TEMP 36.7; O2SAT 98; BMI 25.8
--- NOTE | 2023-10-01 08:09 | H&P.OPEN ---
HPI - General General Date of Service: 10/01/23 HPI Narrative BALDOMERO LI, is a 67 F who presents for screening colonoscopy. Patient states she is still taking MiraLAX daily and having bowel movement every 2 days. Otherwise denies any other changes since office visit. office visit 08/16/23 HPI HPI: 67-year-old female presents for colon cancer screening/possible IBS symptoms. Patient never had previous colonoscopy. Patient is unsure about her family history as they did not really talk about it and the mom may or may not have had surgery also remembers her mom saying that she did not want a bag but unsure if it could be diverticulitis or another reason other than colon cancer-but patient was over 59 at that time. Patient states she had more issues during the summer would have a cycle of constipation and diarrhea. Currently has been better she does take some MiraLAX on occasion typically has a bowel movement every 2 days. Overall patient does not drink a lot of water drinks mostly pop. PFSH Medical History Atherosclerosis of coronary artery of [place] heart without angina pectoris Breast ptosis Cancer Cancer of left breast Capsular contracture of breast implant Cardiology follow-up encounter Deformity of reconstructed breast Diarrhea Disproportion of reconstructed breast Essential hypertension Former smoker Former smoker Gastric reflux History of breast cancer History of heart attack History of IBS History of pain when walking Hyperlipidemia Late effect of radiation NSTEMI (non-ST elevated myocardial infarction) (~09/2016) Pain of left breast Peripheral vascular disease Restless legs Shortness of breath on exertion Vapes nicotine containing substance Home Medications aspirin 81 mg tablet,delayed release (Adult Aspirin Regimen) 81 mg PO QHS 04/29/20 [History Last Taken 09/25/23] atorvastatin 80 mg tablet 80 mg PO QHS 04/29/20 [History Last Taken Unknown] clopidogrel 75 mg tablet 75 mg PO QHS 04/29/20 [History Last Taken 09/25/23] sertraline 100 mg tablet 100 mg PO QHS 04/29/20 [History Last Taken Unknown] pantoprazole 40 mg tablet,delayed release 40 mg PO QHS Heartburn 06/16/20 [History Last Taken Unknown] lisinopril 20 mg tablet 20 mg PO QHS 08/16/23 [History Last Taken Unknown] metoprolol tartrate 50 mg tablet 50 mg PO BID 08/16/23 [History Last Taken 10/01/23] Allergy/AdvReac Type Severity Reaction Status Date / Time No Known Allergies Allergy Verified 10/01/23 07:57 Family History Father Diabetes CVA (cerebral vascular accident) Alzheimer's disease Mother Diabetes Heart disease Hypertension Myocardial infarction Brother Diabetes Myocardial infarction Brother Hypertension Sister Diabetes Surgical History History of appendectomy History of breast implant History of breast implant removal History of cholecystectomy History of coronary artery stent placement (10/21/16) History of left breast biopsy (~06/2020) History of lumpectomy of left breast History of partial hysterectomy History of tonsillectomy S/P percutaneous transluminal angioplasty ([employer]) with stent placement Social History Smoking Status: Current every day smoker tobacco type: cigarettes and e-cigarettes Electronic Cigarette Use: with nicotine alcohol intake: never substance use type: does not use caffeine: Yes Type: carbonated beverages Number of servings: 2 and coffee additional social history: DOES TAKE ASPIRIN DOES TAKE IBUPROFEN Past Medical/Surgical History Planned Operation Planned Operative Procedure/s: CSCOPE Previous Hospitalizations/Surgeries HX Hospitalizations: No Any Problems With Anesthesia: No You/Your Family Experience Fever (Hyperthermia) With Anes: No Cholinesterase deficiency: No Cardiovascular Hx Hypertension: Yes (CONTROLLED WITH MEDS) Respiratory Hx Sleep Apnea: No Hx Respiratory Tract Infection/Cold (presently): No (HEAD COLD) Do You Snore Loudly (louder than talking or can be heard): Yes Do You Often Feel Tired/ Fatigued/ Sleepy Dring Daytime?: Yes Has Anyone Observed You Stop Breathing During Sleep?: No Result (for STOP score): Positive Smoking Status: Current every day smoker Neurological Does patient have nerve stimulator: No Reproduction : No Allergies No Known Allergies Allergy (Verified 10/01/23 07:57) Discharge Is Pt Admitted From a Prison, or a Snf: No After D/C, Where Do you Plan to Go: Return Home Physical Exam Const alert, oriented x3 and no apparent distress HEENT normocephalic and head/scalp atraumatic Resp normal respiratory effort Cardio regular rate GI soft to palpation and non-tender; Negative for non-distended Palpation: Negative for guarding Extremity no clubbing, cyanosis or edema Skin no rashes or lesions noted Neuro CN's II-XII intact bilaterally Psych mental status grossly normal Assessment & Plan Assessment/Plan (1) Screening for colon cancer: Surgery Risks - Colonoscopy I discussed with the patient the risks of the procedure: Yes Risks Include but are not Limited To: Risks include but are not limited to: Bleeding, perforation requiring further surgery, inability to complete colonoscopy requiring barium enema.
[2023-10-01] MEDS: Lactated Ringers 1,000 ML 15 ML IV (08:11)
[2023-10-01 09:25] VITALS: BP 122/97; BP 124/61; PULSE 76; RESP 16; TEMP 36.3; O2SAT 94
--- NOTE | 2023-10-01 09:26 | OP.COLON_ITS ---
Patient Name: Laine Fleming Procedure Date: 10/01/2023 8:53 AM Date of : 1955 Age: 67 Procedure: Colonoscopy Indications: Screening for colorectal malignant neoplasm Providers: Meghann Cano MD Medicines: Monitored Anesthesia Care Patient Profile: This is a 67 year old female. Last Colonoscopy: none. The patient's first colonoscopy is today. Complications: No immediate complications. Procedure: Pre-Anesthesia Assessment: - Prior to the procedure, a History and Physical was performed, and patient medications and allergies were reviewed. The patient's tolerance of previous anesthesia was also reviewed. The risks and benefits of the procedure and the sedation options and risks were discussed with the patient. All questions were answered, and informed consent was obtained. Prior Anticoagulants: The patient has taken no anticoagulant or antiplatelet agents. ASA Grade Assessment: Per anesthesia. After reviewing the risks and benefits, the patient was deemed in satisfactory condition to undergo the procedure. After I obtained informed consent, the scope was passed under direct vision. Throughout the procedure, the patient's blood pressure, pulse, and oxygen saturations were monitored continuously. The was introduced through the anus and advanced to the cecum, identified by the ileocecal valve. The colonoscopy was performed without difficulty. The patient tolerated the procedure well. The quality of the bowel preparation was good. Scope In: 9:01:00 AM Scope Withdrawal Time 0 hours 10 minutes 5 seconds Scope Out: 9:18:43 AM Total Procedure Duration Time 0 hours 17 minutes 43 seconds Findings: The perianal and digital rectal examinations were normal. A less than 5 mm polyp was found in the ascending colon. The polyp was semi-sessile. The polyp was removed with a cold biopsy forceps. Resection and retrieval were complete. The exam was otherwise without abnormality on direct and retroflexion views. Impression: - One less than 5 mm polyp in the ascending colon, removed with a cold biopsy forceps. Resected and retrieved. - The examination was otherwise normal on direct and retroflexion views. Recommendation: - Discharge patient to home. - Resume previous diet. - Continue present medications. - Await pathology results. - Repeat colonoscopy in 5 years for surveillance based on pathology results. Procedure Code(s): --- Professional --- 84025, PT, Colonoscopy, flexible; with biopsy, single or multiple Diagnosis Code(s): --- Professional --- Z12.11, Encounter for screening for malignant neoplasm of colon D12.2, Benign neoplasm of ascending colon CPT copyright 2021 [employer]. All rights reserved. The codes documented in this report are preliminary and upon speech pathologist review may be revised to meet current compliance requirements. MD Meghann Caldwell MD 10/01/2023 9:25:46 AM This report has been signed electronically. Number of Addenda: 0 Note Initiated On: 10/01/2023 8:53 AM
--- NOTE | 2023-10-01 09:26 | OP.CCLET_ITS ---
10/01/[address] [facility] Re : Colonoscopy procedure for Laine Fleming Deanathaly [facility] This procedure was performed on Sunday, October 01, 2023. My impressions and recommendations are as follows: Impressions : - One less than 5 mm polyp in the ascending colon, removed with a cold biopsy forceps. Resected and retrieved. - The examination was otherwise normal on direct and retroflexion views. Recommendations : - Discharge patient to home. - Resume previous diet. - Continue present medications. - Await pathology results. - Repeat colonoscopy in 5 years for surveillance based on pathology results. My findings are described in the full procedure note, which is enclosed. If I can be of further assistance, please feel free to contact me at Doctor phone number(s): , Work: . Sincerely, MD Meghann Caldwell MD 10/01/2023 9:25:46 AM This report has been signed electronically.
[2023-10-01 09:30] VITALS: BP 105/52; BP 122/97; PULSE 75; RESP 16; O2SAT 94
[2023-10-01 09:35] VITALS: BP 109/56; BP 122/97; PULSE 77; RESP 16; O2SAT 99
[2023-10-01 09:42] VITALS: BP 112/49; BP 122/97; PULSE 75; RESP 16; TEMP 36.3; O2SAT 97
[2023-10-01 09:59] VITALS: BP 122/97
== END 2023-10-01 10:15 | disposition home or self-care (01) ==
LOC: EN 07:37 → AC 07:37
PROVIDERS: Visit Provider Surgery
PROC: 0DJD8ZZ Inspection of Lower Intestinal Tract, Via Natural or Artificial Opening Endoscopic (ICD-10-PCS; CPT 45378; principal; 2023-10-01 09:10)
DX: Z12.11 Encounter for screening for malignant neoplasm of colon (principal); I25.10 Atherosclerotic heart disease of native coronary artery without angina pectoris; Z79.82 Long term (current) use of aspirin; F17.200 Nicotine dependence, unspecified, uncomplicated; E78.5 Hyperlipidemia, unspecified; I10 Essential (primary) hypertension; Z85.3 Personal history of malignant neoplasm of breast; I25.2 Old myocardial infarction; D12.2 Benign neoplasm of ascending colon
CPT/HCPCS: 45380; 88305; J7120; J2405

== ENCOUNTER → 2024-01-14 | Outpatient (CLI) | payer MEDICARE, SELFPAY ==
[2024-01-14 10:33] LABS: Absolute Lymphocyte Count 1.39 X10^3/uL (0.83-4.51); Absolute Neutrophil Count 3.2 X10^3/uL (2.0-7.7); Basophil# 0.02 X10^3/uL; Basophil% 0.4 % (0-1); Eosinophil# 0.08 X10^3/uL; Eosinophils% 1.6 % (0-5); Hematocrit 37.9 % (37-47); Hemoglobin 12.5 g/dL (12.0-15.0); Lymphocyte # 1.39 X10^3/ul (0.83-4.51); Lymphocyte % 28.3 % (19-41); Mean Corpuscular Hgb 30.7 pg (27.0-32.0); Mean Corpuscular Volume 93.1 fL (81-99); Mean Platelet Vol. 9.1 fl (6.2-12.0); Monocyte# 0.25 X10^3/uL; Monocyte% 5.1 % (0-10); NRBC Flagged by Analyzer 0 % (0-5); Neutrophil # 3.17 X10^3/uL (2.7-7.7); Neutrophil % 64.4 % (47-70); Platelet Count 230 K/mm3 (150-450); RBC Distribution Width CV 13.8 % (11.6-14.6); RBC Distribution Width SD 46.9 fl (35.1-43.9); Red Blood Count 4.07 M/mm3 (4.2-5.4); White Blood Count 4.9 K/mm3 (4.4-11.0)
[2024-01-14 11:01] LABS: ALB/GLOB Ratio 1.1 RATIO (0.9-2.4); AST(SGOT) 16 U/L (15-37); Alanine Aminotransfer ALT/SGPT 19 U/L (13-56); Albumin, Serum 3.7 g/dL (3.2-5.0); Alkaline Phosphatase 78 U/L (45-117); Anion Gap 4 (5-15); BUN 15 mg/dL (7-18); BUN/Creat Ratio 17.6 RATIO (10-20); Calcium,Total 8.9 mg/dL (8.5-10.1); Chloride 107 mmol/L (98-107); Cholesterol 174 mg/dL (200); Creatinine, Serum 0.85 mg/dL (0.55-1.02); EST Glomerular Filtration Rate 70 mL/min (>60); Est Glom Filt Rate - Afr Amer 85 mL/min (>60); Globulin 3.5 g/dL (2.2-4.2); Glucose 110 mg/dL (74-106); High Density Lipoprotein 55 mg/dL; Microalbumin,Random Urine 25.9 mg/L (NO RANGE EST.); Potassium 3.7 mmol/L (3.5-5.1); Protein, Total 7.2 g/dL (6.4-8.2); Sodium Level 142 mmol/L (136-145); Thyroid Stim Hormone (TSH) 1.77 uIU/mL (0.358-3.74); Triglycerides 203 mg/dL; Very Low Density Lipoprotein 41 mg/dL (5-40)
== END | disposition home or self-care (01) ==
LOC: PAVLAB 09:54
PROVIDERS: Referring Provider Nurse Practitioner Family; Visit Provider Nurse Practitioner Family
DX: I10 Essential (primary) hypertension (principal); E78.5 Hyperlipidemia, unspecified
CPT/HCPCS: 36415; 80053; 80061; 82043; 82570; 84443; 85025

== ENCOUNTER → 2024-08-07 | Outpatient (CLI) | payer MEDICARE, SELFPAY ==
--- NOTE | 2024-08-07 13:12 | RAD_ITS ---
EXAM: XR LEFT HAND COMPLETE, 3 OR MORE VIEWS CLINICAL INDICATION: SPRAIN TECHNIQUE: Frontal, lateral and oblique views of the left hand. COMPARISON: No relevant prior studies available. FINDINGS: BONES/JOINTS: Degenerative narrowing of the interphalangeal joints. No acute fracture or subluxation. SOFT TISSUES: Normal. No soft tissue swelling or gas. No radiopaque foreign body. RAD/Hand Min 3 Views IMPRESSION: No acute bone or joint abnormality. DJD. Electronically Signed: Alfred Schilling MD at 16:40 EDT ,
--- NOTE | 2024-08-07 13:12 | RAD_ITS ---
EXAM: XR LEFT WRIST COMPLETE, 3 OR MORE VIEWS CLINICAL INDICATION: SPRAIN TECHNIQUE: Frontal, lateral and oblique views of the left wrist. COMPARISON: No relevant prior studies available. FINDINGS: BONES/JOINTS: No acute abnormality. SOFT TISSUES: Normal. No soft tissue swelling or gas. No radiopaque foreign body. RAD/Wrist min 3 Views IMPRESSION: Intact left wrist. Electronically Signed: Alfred Schilling MD at 16:40 EDT ,
== END | disposition home or self-care (01) ==
LOC: RAD 13:04
PROVIDERS: Referring Provider Nurse Practitioner Family; Visit Provider Nurse Practitioner Family
DX: S63.502D Unspecified sprain of left wrist, subsequent encounter (principal)
CPT/HCPCS: 73110; 73130

== ENCOUNTER → 2024-12-23 | Outpatient (CLI) | payer MEDICARE, SELFPAY ==
[2024-12-23 17:28] LABS: Absolute Lymphocyte Count 2.08 X10^3/uL (0.83-4.51); Absolute Neutrophil Count 4.2 X10^3/uL (2.0-7.7); Basophil# 0.04 X10^3/uL; Basophil% 0.6 % (0-1); Eosinophils% 1.5 % (0-5); Hematocrit 39.2 % (37-47); Hemoglobin 12.8 g/dL (12.0-15.0); Lymphocyte # 2.08 X10^3/ul (0.83-4.51); Lymphocyte % 30.7 % (19-41); Mean Corp Hgb Conc 32.7 g/dL (32-36); Mean Corpuscular Hgb 30.3 pg (27.0-32.0); Mean Corpuscular Volume 92.9 fL (81-99); Mean Platelet Vol. 9.6 fl (6.2-12.0); Monocyte# 0.36 X10^3/uL; Monocyte% 5.3 % (0-10); NRBC Flagged by Analyzer 0 % (0-5); Neutrophil # 4.18 X10^3/uL (2.7-7.7); Neutrophil % 61.8 % (47-70); Platelet Count 288 K/mm3 (150-450); RBC Distribution Width CV 13.1 % (11.6-14.6); RBC Distribution Width SD 44.2 fl (35.1-43.9); Red Blood Count 4.22 M/mm3 (4.2-5.4); White Blood Count 6.8 K/mm3 (4.4-11.0)
[2024-12-24 02:02] LABS: Cholesterol 181 mg/dL (<=200); High Density Lipoprotein 55 mg/dL; Triglycerides 145 mg/dL; Very Low Density Lipoprotein 29 mg/dL (5-40)
[2024-12-24 02:06] LABS: ALB/GLOB Ratio 1.6 RATIO (0.9-2.4); AST(SGOT) 25 U/L (<=31); Alanine Aminotransfer ALT/SGPT 12 U/L (<=34); Albumin, Serum 4.4 g/dL (3.4-4.8); Alkaline Phosphatase 76 U/L (35-104); Anion Gap 13 (5-15); BUN 12 mg/dL (4-19); BUN/Creat Ratio 14.5 RATIO (10-20); Calcium 9.4 mg/dL (7.6-11.0); Carbon Dioxide 23.4 mmol/L (22.0-29.0); Chloride 104 mmol/L (96-108); Creatinine, Serum 0.9 mg/dL (0.6-1.0); EST Glomerular Filtration Rate 74 (>60); Globulin 2.8 g/dL (2.2-4.2); Glucose 87 mg/dL (70-99); Protein, Total 7.2 g/dL (5.9-8.4); Sodium Level 140 mmol/L (133-145); Total Bilirubin 0.32 mg/dL (0.00-1.30)
[2024-12-24 12:05] LABS: Vitamin D,25 Hydroxy 40.9 ng/mL (30-100)
== END | disposition home or self-care (01) ==
LOC: VSLAB 13:50
PROVIDERS: Referring Provider Nurse Practitioner Family; Visit Provider Nurse Practitioner Family
DX: I10 Essential (primary) hypertension (principal); E78.5 Hyperlipidemia, unspecified; E55.9 Vitamin D deficiency, unspecified
CPT/HCPCS: 36415; 80053; 80061; 82306; 84443; 85025

== ENCOUNTER → 2025-03-04 | Outpatient (CLI) | payer MEDICARE, SELFPAY ==
--- NOTE | 2025-03-04 13:32 | ART_ITS ---
Reason For Study Reason For Study: Claudication Procedure A bilateral lower extremity continuous wave Doppler with analog waveform analysis,segmental pressures,and ankle brachial indexes with exercise. Left Segmental Pressures Left calf = 114mmHg. Left posterior tibial artery = 105mmHg. Left dorsalis pedis artery = 104mmHg. Left digit = 73 mmHg. The left dorsalis pedis waveforms are triphasic. The left posterior tibial artery waveforms are triphasic. Right Segmental Pressures Right brachial= 114mmHg. Right high thigh = 121mmHg. Right low thigh = 87mmHg. Right calf = 74mmHg. Right posterior tibial artery = 74mmHg. Right dorsalis pedis artery = 69mmHg. Right digit = 36 mmHg. The right dorsalis pedis waveforms are monophasic. The right posterior tibial artery waveforms are monophasic. Indices The right ankle brachial index by the dorsalis pedis is 0.61. The right ankle brachial index by the posterior tibial artery is 0.65. The right digital-brachial index is 0.32. The right post exercise ankle brachial index is 0.22. The left ankle brachial index by the dorsalis pedis is 0.91. The left ankle brachial index by the posterior tibial artery is 0.92. The left digital-brachial index is 0.64. The left post exercise ankle brachial index is 0.74. . Preliminary report left on [facility] RN voicemail. VL/Lower Ext Art Exam w/ Exercise Interpretation Summary Right JOSEPH 0.65, moderate arterial insufficiency. Doppler/PVR waveforms and segm ental pressures reveal proximal femoral disease. Right lower extremity with abnormal response to exercise and post exercise JOSEPH in the critical category. Left JOSEPH 0.92, mild arterial insufficiency. Doppler/PVR waveforms of the left l eg normal at rest. Left lower extremity with abnormal response to exercise and post exercise JOSEPH i n the moderate category. Ordering Physician: Dami Bynum Referring Physician: [facility] Performed By: Rina Bravo RVT
== END | disposition home or self-care (01) ==
LOC: CVS 13:30
PROVIDERS: Referring Provider Internal Medicine Cardiovascular Disease; Visit Provider Internal Medicine Cardiovascular Disease
DX: I73.9 Peripheral vascular disease, unspecified (principal)
CPT/HCPCS: 93924

== ENCOUNTER → 2025-04-07 | Outpatient (CLI) | payer MEDICARE, SELFPAY ==
[2025-04-07 11:28] LABS: Anion Gap 11 (5-15); BUN 18 mg/dL (4-19); BUN/Creat Ratio 17.4 RATIO (10-20); Calcium,Total 9.4 mg/dL (7.6-11.0); Carbon Dioxide 26.8 mmol/L (21.0-32.0); Chloride 101 mmol/L (98-108); Creatinine, Serum 1.06 mg/dL (0.70-1.20); EST Glomerular Filtration Rate 57 (>60); Glucose 127 mg/dL (70-99); Potassium 4.2 mmol/L (3.3-5.1); Sodium Level 138 mmol/L (133-145)
--- OUTSIDE RECORDS SUMMARY | 2025-04-07 22:52 | XMS RPT_ITS | CCD ---
Author Organization [facility] Care Team Providers Care Floriculture Professor Name Role Phone [facility], [facility] Primary Care Pro vider [facility] [place], [facility] Referring Provid er Dr. Meghann Cano Attending Provider Dr. Meghann Cano Other Provider Abi Abarca Primary Care Provider Ari Mendez CNP Primary Care Provider ARI MENDEZ Primary Care Unavailable CONNOR HE Referring Unavailable ABI ABARCA Primary Care Unavailable ABI ABARCA Primary Care Unavailable [facility], [facility] Primary Care Pro vider Karlo ELECT[address] [employer] RECORDER-CDelaney Attending Provider Karlo ELECTRONIC COURT RECORDER-C, Delaney Referring Provider [facility], Levantgenet Foreman Referring Provid er Dr. Dami Bynum MD Attending Provider Dr. Dami Bynum MD Referring Provider Dr. Carmelo Davies MD Attending Provider Dami Bynum Referring Unavailable [facility], Katy Foreman Primary Care Unavailable Dami Bynum Attending Unavailable [facility] [place], [facility] Kellen Primary Care Unavailable [facility], Delaney Attending Unavailabl e [facility], Delaney [facility] [place] Iwonalucía Primary Care Unavailable [facility], Delaney Attending Unavailabl e [facility], Delaney [facility], Lev[facility] Kellen Primary Care Unavailable [facility] [place], Levant Kellen Referring Unavailable Dami Bynum Attending Unavailable Dami Bynum Referring Unavailable [facility], Katy Foreman Primary Care Unavailable Carmelo Davies Attending Unavailable Laura Perez Attending Provider Medications Current Medications Medication Drug Class(es) Dates Sig (Normalized) Sig (Original) aspirin 81 mg delayed release oral tablet (6 sources) Platelet Aggregation Inhibitor, Nonsteroidal Anti-inflammatory Drug Start: 04-29-2020 take 1 tablet by mouth at bedtime Aspirin (Adult Aspirin Regimen) 81 mg tablet,delayed release (DR/EC) Active 81 mg PO AT BEDTIME April 29, 2020 12:00am atorvastatin 80 mg oral tablet (9 sources) HMG-CoA Reductase Inhibitor Start: 04-29-2020 take 1 tablet by mouth at bedtime Atorvastatin 80 mg tablet Active 80 mg PO AT BEDTIME April 29, 2020 12:00am biotin 10 mg oral capsule (7 sources) Start: 06-16-2020 take 79554 ug by mouth at bedtime Biotin Active 25033 MCG PO AT BEDTIME June 16, 2020 1:13pm Start: 04-29-2020 End: 06-16-2020 Biotin 10,000 mcg capsule Di scontinued ug PO April 29, 2020 12:00am June 16, 2020 2:14pm Start: 04-29-2020 End: 06-16-2020 Biotin Discontinued MCG PO J aleksandra 2019 12:00am June 16, 2020 2:14pm cholecalciferol 0.05 mg oral tablet (1 source) Vitamin D Start: 07-06-2022 take 1 tablet by mouth at bedtime Cholecalciferol (Vitamin D3) (Vitamin D3) 50 mcg (2,000 unit) Tablet Active 50 MCG PO AT BEDTIME July 05, 2022 11:00pm clopidogrel 75 mg oral tablet (9 sources) P2Y12 Platelet Inhibitor Start: 04-29-2020 take 1 tablet by mouth at bedtime Clopidogrel 75 mg tablet Active 75 mg PO AT BEDTIME April 29, 2020 12:00am doxycycline hyclate 100 mg oral tablet (1 source) Tetracycline-cl ass Drug Start: 11-20-2024 End: 11-25-2024 take 1 tablet by mouth twice daily doxycycline (VIBRA-TABS) 100 mg tablet Take 1 tablet by mouth two times a day for 5 days. 10 tablet 11/20/2024 11/25/2024 Active hydroCHLOROthiazide 25 mg oral tablet (2 sources) Thiazide Diuretic Start: 02-13-2025 take 1 tablet by mouth once daily in the morning Hydrochlorothiazide 25 mg tablet Active 25 mg PO EVERY MORNING 90 February 13, 2025 12:00am lisinopril 20 mg oral tablet (14 sources) Angiotensin Converting Enzyme Inhibitor Start: 08-16-2023 take 1 tablet by mouth at bedtime Lisinopril 20 mg tablet Active 20 mg PO AT BEDTIME August 16, 2023 12:00am Start: 04-29-2020 End: 08-16-2023 take 1 tablet by mouth at bedtime Lisinopril 10 mg tablet Discontinued 10 mg PO AT BEDTIME April 29, 2020 12:00am August 16, 2023 2:41pm 24 hr metoprolol succinate 100 mg extended release oral tablet (16 sources) beta-Adrenergic Candis Start: 01-29-2025 take 1 tablet by mouth once daily Metoprolol Succinate 100 mg tablet extended release 24 hr Active 100 mg PO daily January 29, 2025 12:00am Start: 04-21-2024 take 100 mg by mouth once aura y metoprolol succinate ER (TOPROL XL) 100 mg Take 100 mg by mouth once daily. 04/21/2024 Active Start: 08-16-2023 End: 01-29-2025 take 1 tablet by mouth twice daily Metoprolol Tartrate 50 mg tablet Discontinued 50 mg PO TWICE A DAY August 16, 2023 12:00am January 29, 2025 3:47pm Start: 04-29-2020 End: 08-16-2023 take 1 capsule by mouth every twenty-four hours at bedtime Metoprolol Succinate 100 mg capsule,sprinkle,ER 24hr Discontinued 100 mg PO AT BEDTIME April 29, 2020 12:00am August 16, 2023 2:42pm pantoprazole 40 mg delayed release oral tablet (6 sources) Proton Pump Inhibitor Start: 06-16-2020 take 1 tablet by mouth at bedtime Pantoprazole 40 mg tablet,delayed release (DR/EC) Active 40 mg PO AT BEDTIME June 16, 2020 12:00am sertraline 100 mg oral tablet (9 sources) Serotonin Reuptake Inhibitor Start: 04-29-2020 take 1 tablet by mouth at bedtime Sertraline 100 mg tablet Active 100 mg PO AT BEDTIME April 29, 2020 12:00am Completed/Discontinued Medications Medication Drug Class(es) Dates Sig (Normalized) Sig (Original) tiZANidine 2 mg oral capsule (2 sources) Central alpha-2 Adrenergic Agonist Start: 01-29-2025 End: 02-13-2025 take 1 capsule by mouth twice daily as needed Tizanidine 2 mg capsule Discontinued 2 mg PO TWICE A DAY as needed January 29, 2025 12:00am February 13, 2025 2:23pm Problems Active Problems Problem Classification Problem Date Documented Da te Episodic/Chronic Acute myocardial infarction (6 sources) Myocardial infarction; Translations: [Non-ST elevation (NSTEMI) myocardial infarction] Onset: 10-29-2015 06-28-2020 Chronic Comment on above: 2.5 x 28 mm Xience s tent overlapped with a 2.5 x 8 mm Xience stent to [facility] 10/21/16 Allergic reactions (6 sources) Disorder of soft tissue; Translations: [Other specified disorders of the skin and subcutaneous tissue related to radiation] 08-05-2020 Episodic Comment on above: left breast Cancer of breast (6 sources) Malignant tumor of breast ; Translations: [Malignant neoplasm of unspecified site of left female breast] 06-28-2020 Chronic Complication of device; implant or graft (6 sources) Capsular breast contracture of breast implant; Translations: [Capsular contracture of breast implant, initial encounter] 06-28-2020 Episodic Comment on above: left breast reconstr uction Coronary atherosclerosis and other heart disease (9 sources) Coronary atherosclerosis; Translations: [Atherosclerotic heart disease of zuni coronary artery without angina pectoris] Onset: 02-13-2025 06-28-2020 Chronic Comment on above: 2.5 x 28 mm Xience s tent overlapped with a 2.5 x 8 mm Xience stent to [facility] 10/21/16 Disorders of lipid metabolism (9 sources) Hyperlipidemia; Translations: [Hyperlipidemia, unspecified] Onset: 02-13-2025 06-28-2020 Chronic Essential hypertension (9 sources) Essential hypertension; Translations: [Essential (primary) hypertension] Onset: 02-13-2025 09-27-2023 Chronic Comment on above: CONTROLLED WITH MED Mood disorders (2 sources) Depressive disorder; Translations: [Depression] 01-29-2025 Chronic Nonmalignant breast conditions (20 sources) Mastodynia; Translations: [Pain of left breast] 06-28-2020 Episodic Comment on above: right breast reconst ruction left breast reconstr uction Other circulatory disease (4 sources) Peripheral arterial occlusive disease; Translations: [Disorder of arteries and arterioles, unspecified] 01-29-2025 Chronic Other connective tissue disease (2 sources) Pain in left arm; Translations: [Pain in left arm] 07-15-2024 Episodic Other gastrointestinal disorders (6 sources) Constipation; Translations: [Constipation, unspecified] 05-10-2022 Episodic Other gastrointestinal disorders (1 source) Constipation, unspecified; Translations: [Constipation, unspecified] 08-16-2023 Episodic Other injuries and conditions due to external causes (6 sources) Late effect of radiation; Translations: [Radiation sickness, unspecified, sequela] 06-28-2020 Episodic Comment on above: left breast Other screening for suspected conditions (not mental disorders or infectious disease) (15 sources) Patient encounter status; Translations: [Encounter for screening for malignant neoplasm of colon] 05-10-2022 Episodic Other upper respiratory infections (1 source) Chronic sinusitis; Translations: [Chronic sinusitis, unspecified] 11-20-2024 Chronic Peripheral and visceral atherosclerosis (7 sources) Peripheral vascular disease; Translations: [Peripheral vascular disease, unspecified] Onset: 03-10-2025 06-28-2020 Chronic Residual codes; unclassified (6 sources) History of bilateral breast implants; Translations: [Breast implant status] 08-07-2020 Chronic Screening and history of mental health and substance abuse codes (6 sources) Ex-smoker; Translations: [Personal history of nicotine dependence] 06-28-2020 Episodic Comment on above: uses E-cigarettes Spondylosis; intervertebral disc disorders; other back problems (6 sources) Low back pain; Translations: [Low back pain radiating to left lower extremity] 08-18-2021 Episodic Past or Other Problems Problem Classification Problem Date Documented Da te Episodic/Chronic Other connective tissue disease (1 source) Pain in left arm; Translations: [Pain of left upper extremity] Onset: 07-15-2024 Episodic Sprains and strains (1 source) Unspecified sprain of left wrist, subsequent encounter; Translations: [Unspecified sprain of left wrist, subsequent encounter] Onset: 08-27-2024 Episodic Results Test Name Value Interpretation Reference Range Facility Arterial study reportOrdered By: Carmelo Davies on 03-04-2025 Noninvasive arteriosclerosis study report [facility] [address] [place] [address] Lower Ext Art Exam w/ Exercise 03/04/25 1354 MR#: [id number] Acct: [id number] Name: LAINE MARCIAL Rep #:[id number] : 1955 69 From: Carmelo Griggs Attending Dr: Dr. Dami Bynum MD Status: REG CLI Ordering Dr: Dami Bynum MD Date: 03/04/25 Location: [facility] Sex: F C Admitted: Reason For Study Reason For Study: Claudication Procedure A bilateral lower extremity continuous wave Doppler with analog waveform analysis,segmental pressures,and ankle brachial indexes with exercise. Left Segmental Pressures Left calf = 114mmHg. Left posterior tibial artery = 105mmHg. Left dorsalis pedisartery = 104mmHg. Left digit = 73 mmHg. The left dorsalis pedis waveforms are triphasic. The left posterior tibial artery waveforms are triphasic. Right Segmental Pressures Right brachial= 114mmHg. Right high thigh = 121mmHg. Right low thigh = 87mmHg. Right calf = 74mmHg. Right posterior tibial artery = 74mmHg. Right dorsalis pedis artery = 69mmHg. Right digit = 36 mmHg. The right dorsalis pedis waveforms are monophasic. The right posterior tibial artery waveforms are monophasic. Indices The right ankle brachial index by the dorsalis pedis is 0.61. The right ankle brachial index by the posterior tibial artery is 0.65. The right digital-brachial index is 0.32. The right post exercise ankle brachial index is 0.22. The left ankle brachial index by the dorsalis pedis is 0.91. The left ankle brachial index by the posterior tibial artery is 0.92. The left digital-brachial index is 0.64. The left post exercise ankle brachial index is 0.74. . Preliminary report left on [facility] RN voicemail. VL/Lower Ext Art Exam w/ Exercise Interpretation Summary Right JOSEPH 0.65, moderate arterial insufficiency. Doppler/PVR waveforms and segmental pressures reveal proximal femoral disease. Right lower extremity with abnormal response to exercise and post exercise JOSEPH in the critical category. Left JOSEPH 0.92, mild arterial insufficiency. Doppler/PVR waveforms of the left leg normal at rest. Left lower extremity with abnormal response to exercise and post exercise JOSEPH inthe moderate category. Ordering Physician: Dami Bynum Referring Physician: [facility] Performed By: Rina Bravo RVT 03/04/25 170 Date _ Carmelo Davies MD CC: Dr. Dami Bynum MD; [facility] ~ Date Dictated: 03/04/25 135 Date Transcribed: 03/04/251700 Implementation Architect: Signed [facility] Work Phone: Lower Ext Art Exam w/ Exerci fernandez 03-04-2025 Lower Ext Art Exam w/ Exercise [facility] [address] [place] [id number] Lower Ext Art Exam w/ Exercise 03/04/251353 MR#: [id number] Acct: [id number] Name: LAINE MARCAIL Rep #: [id number] : 1955 69 From: Carmelo Davies MD Attending Dr: Dr. Dami Bynum MD Status: RE G CLI Ordering Dr: Dami Bynum MD Date: 03/04/25 Location: [facility] Sex: F C Admitted: Reason For Study Reason For Study: Claudication Procedure A bilateral lower extremity continuous wave Doppler with analog waveform analysis,segmental pressures,and ankle brachial indexes with exercise. Left Segmental Pressures Left calf = 114mmHg. Left posterior tibial artery = 105mmHg. Left dorsalis pedis artery = 104mmHg. Left digit = 73 mmHg. The left dorsalis pedis waveforms are triphasic. The left posterior tibial artery waveforms are triphasic. Right Segmental Pressures Right brachial= 114mmHg. Right high thigh = 121mmHg. Right low thigh = 87mmHg. Right calf = 74mmHg. Right posterior tibial artery = 74mmHg. Right dorsalis pedis artery = 69mmHg. Right digit = 36 mmHg. The right dorsalis pedis waveforms are monophasic. The right posterior tibial artery waveforms are monophasic. Indices The right ankle brachial index by the dorsalis pedis is 0.61. The right ankle brachial index by the posterior tibial artery is 0.65. The right digital-brachial index is 0.32. The right post exercise ankle brachial index is 0.22. The left ankle brachial index by the dorsalis pedis is 0.91. The left ankle brachial index by the posterior tibial artery is 0.92. The left digital-brachial index is 0.64. The left post exercise ankle brachial index is 0.74. . Preliminary report left on [facility] RN voicemail. VL/Lower Ext Art Exam w/ Exercise Interpretation Summary Right JOSEPH 0.65, moderate arterial insufficiency. Doppler/PVR waveforms and segmental pressures reveal proximal femoral disease. Right lower extremity with abnormal response to exercise and post exercise JOSEPH in the critical category. Left JOSEPH 0.92, mild arterial insufficiency. Doppler/PVR waveforms of the left leg normal at rest. Left lower extremity with abnormal response to exercise and post exercise JOSEPH in the moderate category. Ordering Physician: Dami Bynum Referring Physician: [facility] Performed By: Rina Bravo RVT 03/04/25 1701 Date Carmelo Davies MD CC: Dr. Dami Bynum MD; [facility] Date Dictated: 03/04/25 1354 Date Transcribed: 03/04/25 1701 Implementation Architect: Signed Normal [facility] 12 Lead EKG performed by [facility] on 02-13-2025 12 Lead EKG performed by [facility] [address] [place] [address] 12 Lead EKG performed by [facility] 02/13/25 0813 MR#: [id number] Acct: [id number] Name: LAINE MARCIAL Rep #: [id number] : 1955 69 From: Dami Bynum MD Attending Dr: Dr. Dami Bynum MD Status: DE P AMB Ordering Dr: Dami Bynum MD Date: 02/13/25 Location: [facility] Sex: F C Admitted: BMS/12 Lead EKG performed by [facility] ECG Report Interpretation ---Sinus Rhythm WITHIN NORMAL LIMITSElectronically signed on 02/13/2025 at 15:[address] Arley Das MD [employer] Version [id number] 02/13/25 1503 Date Dami Bynum MD CC: [facility] Date Dictated: 02/13/25812 Date Transcribed: 02/13/25812 Implementation Architect: Signed Normal [facility] Cardiology Visit Reporton Cardiology Visit Report [facility] [address] [place] [address] OFFICE VISIT Date of Service: 02/13/25 MR#: [id number] Acct: [id number] Name: LAINE MARCIAL Rep #: [id number] : 1955 Provider: Dr. Dami galdamez MD Age/Sex: 69/F Location: [facility] Status: Signed HPI HPI History of Present Illness Details: Patient is a 69-year-old white female that comes in today for new patient visit. Has a history of known coronary disease status post remote stenting of the right coronary with 2 stents back in September 2016 done at [facility] outside of [place]. That was at the time of the non-STEMI. At that time the patient had right sided jaw pain associated with severe indigestion. She also has a history of peripheral vascular the status post stents to the right lower extremity that were done in [facility] in [place] that preceded her non-STEMI. Patient reports that she currently has some bilateral jaw discomfort that is truly up in her jaw but not associated with any indigestion and is not like what she had prior to her infarct. EKG done in the office today shows normal sinus rhythm and is normal. The patient's blood pressure is significantly elevated in the office today at 192/90 we rechecked it at 191/80 10:06 minutes. She reports to me that this is consistent with what she normally runs. She has recently had her lisinopril increased to 40 mg daily but she got lightheaded and dizzy and drop it back to 20 mg. She is also on metoprolol 100 mg once a day. She takes both of them in the evening hours. The patient has remained on aspirin and Plavix since that point in time. She denies any bleeding issues. Patient also has a history of breast cancer and breast implants. The patient has a history of hyperlipidemia her current lipids done in November 2024 were not quite at goal. She is on atorvastatin 80 mg daily. The patient does continue to use nicotine she is vaping but she did quit cigarettes. 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 Accompanied by: Self Is patient in pain?: No Allergies No Known Allergies Allergy (Verified 02/13/25 14:21) Medications ???Medication ???Instructions ???Recorded ???Confirmed ???Type aspirin 81 mg tablet,delayed 81 mg PO QHS 04/29/20 02/13/25 His tory release (Adult Aspirin Regimen) atorvastatin 80 mg tablet 80 mg PO QHS 04/29/20 02/13/25 His tory clopidogrel 75 mg tablet 75 mg PO QHS 04/29/20 02/13/25 His tory sertraline 100 mg tablet 100 mg PO QHS 04/29/20 02/13/25 Hi story pantoprazole 40 mg tablet,delayed 40 mg PO QHS Heartburn 06/16/20 0 02/13/25 History release lisinopril 20 mg tablet 20 mg PO QHS 08/16/23 02/13/25 His tory metoprolol succinate 100 mg 100 mg PO QDAY 01/29/25 02/13/25 H istory tablet,extended release 24 hr hydrochlorothiazide 25 mg tablet 25 mg PO QAM #90 tabs 02/13/25 Rx Have you fallen in the past year?: Yes PFSH Medical History Peripheral arterial occlusive disease Depression Cancer Restless legs History of IBS Gastric reflux Vapes nicotine containing substance Former smoker Shortness of breath on exertion History of pain when walking Cardiology follow-up encounter History of heart attack Diarrhea Peripheral vascular disease NSTEMI (non-ST elevated myocardial infarction) ( 09/2016) History of breast cancer Atherosclerosis of coronary artery of zuni heart without angina pectoris Hyperlipidemia Essential hypertension Former smoker Cancer of left breast Disproportion of reconstructed breast Deformity of reconstructed breast Breast ptosis Capsular contracture of breast implant Late effect of radiation Pain of left breast Surgical History History of colonoscopy History of left breast biopsy ( 06/2020) S/P percutaneous transluminal angioplasty (FOOD INSPECTOR) with stent placement History of coronary artery stent placement (10/21/16) History of cholecystectomy History of lumpectomy of left breast History of breast implant removal History of breast implant History of partial hysterectomy History of appendectomy History of tonsillectomy Family History Father Diabetes CVA (cerebral vascular accident) Alzheimer's disease Mother Diabete (more content not included)... Normal [facility] Comprehensive Metabolic Prof linda 12-24-2024 Albumin [Mass/Vol] 4.4 g/dL Normal 3.4-4.8 [facility] Comment on above: Performed By: #### L 501.9520, L100.0100, L500.4050, L500.4100, L506.1001 #### [facility] [address] [place], [address] Albumin/Globulin [Mass ratio] 1.6 {ratio} Normal 0.9-2.4 [facility] Comment on above: Performed By: #### L 501.9520, L100.0100, L500.4050, L500.4100, L506.1001 #### [facility] [address] [place], [address] ALK PHOS 76 U/L Normal 35-104 [facility] Comment on above: Performed By: #### L 501.9520, L100.0100, L500.4050, L500.4100, L506.1001 #### [facility] [address] [place], [address] ALT [Catalytic activity/Vol] 12 U/L Normal <=34 [facility] Comment on above: Performed By: #### L [id number], L100.0100, L500.4050, L500.4100, L506.1001 #### [facility] [address] [place], [address] Anion gap [Moles/Vol] 13 mmol/L Normal 5-15 [facility] Comment on above: Performed By: #### L 501.9520, L100.0100, L500.4050, L500.4100, L506.1001 #### [facility] [address] [place], [address] AST [Catalytic activity/Vol] 25 U/L Normal <=31 [facility] Comment on above: Performed By: #### L 501.9520, L100.0100, L500.4050, L500.4100, L506.1001 #### [facility] [address] [place], [address] Bilirubin [Mass/Vol] 0.32 mg/dL Normal 0.00-1.30 [facility] Comment on above: Performed By: #### L [id number], L100.0100, L500.4050, L500.4100, L506.1001 #### [facility] [address] [place], [address] BUN/CRE 14.5 RATIO Normal 10-20 [facility] Comment on above: Performed By: #### L 501.9520, L100.0100, L500.4050, L500.4100, L506.1001 #### [facility] [address] [place], [address] Calcium [Mass/Vol] 9.4 mg/dL Normal 7.6-11.0 [facility] Comment on above: Performed By: #### L 501.9520, L100.0100, L500.4050, L500.4100, L506.1001 #### [facility] [address] [place], [address] Chloride [Moles/Vol] 104 mmol/L Normal 96-108 [facility] Comment on above: Performed By: #### L 501.9520, L100.0100, L500.4050, L500.4100, L506.1001 #### [facility] [address] [place], [address] CO2 [Moles/Vol] 23.4 mmol/L Normal 22.0-29.0 [facility] Comment on above: Performed By: #### L 501.9520, L100.0100, L500.4050, L500.4100, L506.1001 #### [facility] [address] [place], [address] Creatinine [Mass/Vol] 0.9 mg/dL Normal 0.6-1.0 [facility] Comment on above: Performed By: #### L 501.9520, L100.0100, L500.4050, L500.4100, L506.1001 #### [facility] [address] [place], [address] GFR/1.73 sq M.predicted among non-blacks MDRD (S/P/Bld) [Vol rate/Area] 74 mL/min/{1.73_m2} Normal >60 [facility] Comment on above: Result Comment: mL/m in/1.73m2 CKD-EPI Creatinine Equation (2020) Performed By: #### L 501.9520, L100.0100, L500.4050, L500.4100, L506.1001 #### [facility] [address] [place], [address] Globulin (S) [Mass/Vol] 2.8 g/dL Normal 2.2-4.2 [facility] Comment on above: Performed By: #### L 501.9520, L100.0100, L500.4050, L500.4100, L506.1001 #### [facility] [address] [place], [address] Glucose [Mass/Vol] 87 mg/dL Normal 70-99 [facility] Comment on above: Performed By: #### L 501.9520, L100.0100, L500.4050, L500.4100, L506.1001 #### [facility] [address] [place], [address] Potassium [Moles/Vol] 4.0 mmol/L Normal 3.3-5.1 [facility] Comment on above: Performed By: #### L 501.9520, L100.0100, L500.4050, L500.4100, L506.1001 #### [facility] [address] [place], [address] Sodium [Moles/Vol] 140 mmol/L Normal 133-145 [facility] Comment on above: Performed By: #### L 501.9520, L100.0100, L500.4050, L500.4100, L506.1001 #### [facility] [address] [place], [address] T PROT 7.2 g/dL Normal 5.9-8.4 [facility] Comment on above: Performed By: #### L 501.9520, L100.0100, L500.4050, L500.4100, L506.1001 #### [facility] [address] [place], [address] Urea nitrogen [Mass/Vol] 12 mg/dL Normal 4-19 [facility] Comment on above: Performed By: #### L 501.9520, L100.0100, L500.4050, L500.4100, L506.1001 #### [facility] [address] [place], [address] L506.1001on 12-24-2024 Vitamin D 25-OH 40.9 ng/mL Normal 30-100 [facility] Comment on above: Order Comment: PLEMARTINA Low ADD TO BLOOD FROM YESTERDAY WG2 2 H TY4 2 E Result Comment: Doreen min D Status Deficiency: <20 ng/mL (50nmol/L) Insufficiency: 20-30 ng/mL (50-75 nmol/L) Sufficiency: 30-100 ng/mL (75-250 nmol/L) Toxicity: >100 ng/mL (>250 nmol/L) Performed By: #### L 501.9520, L100.0100, L500.4050, L500.4100, L506.1001 #### [facility] [address] [place], [address] Lipid Profileon 12-24-2024 Cholesterol in LDL [Mass/Vol] 97 mg/dL Normal 0-130 [facility] Comment on above: Performed By: #### L 501.9520, L100.0100, L500.4050, L500.4100, L506.1001 #### [facility] [address] [place], [place], [address] Thyroid Stim Hormone (TSH)on 12-24-2024 TSH 1.260 uIU/mL Normal 0.300-4.200 [facility] Comment on above: Performed By: #### L 501.9520, L100.0100, L500.4050, L500.4100, L506.1001 #### [facility] [address] [place], [address] Absolute lymphocyte countOrd ered By: [facility] Delaney Dietrich on 12-23-2024 Lymphocytes Auto (Unsp spec) [#/Vol] 2.08 10*3/uL 0.83-4.51 [facility] Absolute neutrophil countOrd ered By: [facility] Delaney Dietrich on 12-23-2024 Neutrophils (Bld) [#/Vol] 4.2 10*3/uL 2.0-7.7 [facility] Automated lymphocyte count a s percentage of total leukocytesOrdered By: [facility] Delaney Dietrich on 12-23-2024 Lymphocytes/100 WBC Auto (Unsp spec) 30.7 % 19-41 [facility] BUN/creatinine ratioOrdered By: [facility] Delaney Dietrich on 12-23-2024 Urea nitrogen/Creatinine [Mass ratio] 14.5 mg/mg 10-20 [facility] Basophil percentageOrdered B y: [facility] Delaney Diterich on 12-23-2024 Basophils/100 WBC (Bld) 0.6 % 0-1 [facility] Bilirubin, totalOrdered By: [facility] Delaney Dietrich on 12-23-2024 Bilirubin [Mass/Vol] 0.32 mg/dL 0.00-1.30 [facility] CBC W/Diff, Automatedon 11-30 Absolute Lymph 2.08 X10 3/uL Normal 0.83-4.51 [facility] Comment on above: Performed By: #### L 501.9520, L100.0100, L500.4050, L500.4100, L506.1001 #### [facility] [address] [place], [address] Absolute Neut 4.2 X10 3/uL Normal 2.0-7.7 [facility] Comment on above: Performed By: #### L 501.9520, L100.0100, L500.4050, L500.4100, L506.1001 #### [facility] [address] [place], [address] Basophils/100 WBC (Bld) 0.6 % Normal 0-1 [facility] Comment on above: Performed By: #### L 501.9520, L100.0100, L500.4050, L500.4100, L506.1001 #### [facility] [address] [place], [address] Eosinophils/100 WBC (Bld) 1.5 % Normal 0-5 [facility] Comment on above: Performed By: #### L 501.9520, L100.0100, L500.4050, L500.4100, L506.1001 #### [facility] [address] [place], [address] Erythrocyte distribution width (RBC) [Ratio] 13.1 % Normal 11.6-14.6 [facility] Comment on above: Performed By: #### L 501.9520, L100.0100, L500.4050, L500.4100, L506.1001 #### [facility] [address] [place], [address] Hematocrit (Bld) [Volume fraction] 39.2 % Normal 37-47 [facility] Comment on above: Performed By: #### L 501.9520, L100.0100, L500.4050, L500.4100, L506.1001 #### [facility] [address] [place], [address] Hemoglobin (Bld) [Mass/Vol] 12.8 g/dL Normal 12.0-15.0 [facility] Comment on above: Performed By: #### L 501.9520, L100.0100, L500.4050, L500.4100, L506.1001 #### [facility] [address] [place], [address] IG% 0.100 Normal 0.0-0.9 [facility] Comment on above: Result Comment: IG% - Immature Granulocytes (promyelocytes, myelocytes and metamyelocytes) > 1% indicates that a LEFT SHIFT is Present. Performed By: #### L 501.9520, L100.0100, L500.4050, L500.4100, L506.1001 #### [facility] [address] [place], [address] Lymphocytes/100 WBC (Bld) 30.7 % Normal 19-41 [facility] Comment on above: Performed By: #### L 501.9520, L100.0100, L500.4050, L500.4100, L506.1001 #### [facility] [address] [place], [address] MCH (RBC) [Entitic mass] 30.3 pg Normal 27.0-32.0 [facility] Comment on above: Performed By: #### L 501.9520, L100.0100, L500.4050, L500.4100, L506.1001 #### [facility] [address] [place], [address] MCHC (RBC) [Mass/Vol] 32.7 g/dL Normal 32-36 [facility] Comment on above: Performed By: #### L 501.9520, L100.0100, L500.4050, L500.4100, L506.1001 #### [facility] [address] [place], [address] MCV (RBC) [Entitic vol] 92.9 fL Normal 81-99 [facility] Comment on above: Performed By: #### L 501.9520, L100.0100, L500.4050, L500.4100, L506.1001 #### [facility] [address] [place], [address] Monocytes/100 WBC (Bld) 5.3 % Normal 0-10 [facility] Comment on above: Performed By: #### L 501.9520, L100.0100, L500.4050, L500.4100, L506.1001 #### [facility] [address] [place], [address] Neutrophils/100 WBC (Bld) 61.8 % Normal 47-70 [facility] Comment on above: Performed By: #### L 501.9520, L100.0100, L500.4050, L500.4100, L506.1001 #### [facility] [address] [place], [address] Nucleated RBC (Bld) [#/Vol] 0 10*3/uL Normal 0-5 [facility] Comment on above: Performed By: #### L 501.9520, L100.0100, L500.4050, L500.4100, L506.1001 #### [facility] [address] [place], [address] Platelet mean volume (Bld) [Entitic vol] 9.6 fL Normal 6.2-12.0 [facility] Comment on above: Performed By: #### L 501.9520, L100.0100, L500.4050, L500.4100, L506.1001 #### [facility] [address] [place], [address] Platelets (Bld) [#/Vol] 288 10*3/uL Normal 150-450 [facility] Comment on above: Performed By: #### L 501.9520, L100.0100, L500.4050, L500.4100, L506.1001 #### [facility] [address] [place], [address] RBC (Bld) [#/Vol] 4.22 10*6/uL Normal 4.2-5.4 [facility] Comment on above: Performed By: #### L 501.9520, L100.0100, L500.4050, L500.4100, L506.1001 #### [facility] [address] [place], [address] RDW SD 44.2 fl High 35.1-43.9 [facility] Comment on above: Performed By: #### L 501.9520, L100.0100, L500.4050, L500.4100, L506.1001 #### [facility] [address] [place], [address] WBC (Bld) [#/Vol] 6.8 10*3/uL Normal 4.4-11.0 [facility] Comment on above: Performed By: #### L 501.9520, L100.0100, L500.4050, L500.4100, L506.1001 #### [facility] [address] [place], [address] Carbon dioxide measurementOr dered By: [facility] Delaney Dietrich on 12-23-2024 CO2 [Moles/Vol] 23.4 mmol/L 22.0-29.0 [facility] Chloride measurementOrdered By: [facility] Delaney Dietrich on 12-23-2024 Chloride [Moles/Vol] 104 mmol/L 96-108 [facility] Cholesterol in VLDL [Mass/Vo l]Ordered By: [facility] Delaney Dietrich on 12-23-2024 VLDL Cholesterol 29 mg/dL 5-40 [facility] Creatinine [Moles/Vol]Ordere d By: [facility] Delaney Karlo on 12-23-2024 Creatinine [Mass/Vol] 0.9 mg/dL 0.6-1.0 [facility] Eosinophil percentageOrdered By: [facility] Delaney Karlo on 12-23-2024 Eosinophils/100 WBC (Bld) 1.5 % 0-5 [facility] Erythrocyte distribution wid th ratioOrdered By: [facility] Delaney Karlo on 12-23-2024 Erythrocyte distribution width (RBC) [Ratio] 13.1 % 11.6-14.6 [facility] Erythrocyte distribution wid th standard deviationOrdered By: [facility] Delaney Karlo on 12-23-2024 Erythrocyte distribution width (RBC) [Entitic vol] 44.2 fL High 35.1-43.9 [facility] Erythrocyte distribution width (RBC) [Ratio] 44.2 fl High 35.1-43.9 [facility] GFR/1.73 sq M.predicted tyler g non-blacks MDRD (S/P/Bld) [Vol rate/Area]Ordered By: [facility] Delaneyjhony Dietrich on 12-23-2024 Estimated GFR (MDRD) Non-Af Amer 74 >60 [facility] Comment on above: mL/min/1.73m2 CKD-EP I Creatinine Equation (2020) Glomerular filtration rate ( GFR) estimation/1.73 sq m using serum, plasma, or whole bOrdered By: [facility] 12-23-2024 GFR/1.73 sq M.predicted among non-blacks MDRD (S/P/Bld) [Vol rate/Area] 74 mL/min/{1.73_m2} >60 [facility] Comment on above: mL/min/1.73m2 CKD-EP I Creatinine Equation (2020) Hematocrit Auto (Bld) [Volum e fraction]Ordered By: [facility] Delaney Dietrich on 12-23-2024 Hematocrit (Bld) [Volume fraction] 39.2 % 37-47 [facility] Hemoglobin measurementOrdere d By: [facility] Delaneyjhony Dietrich on 12-23-2024 Hemoglobin (Bld) [Mass/Vol] 12.8 g/dL 12.0-15.0 [facility] Immature granulocytes/100 WB C Auto (Bld)Ordered By: [facility] Delaney Dietrich on 12-23-2024 Immature granulocytes/100 WBC (Bld) 0.100 % 0.0-0.9 [facility] Comment on above: IG% - Immature Granu locytes (promyelocytes, myelocytes and metamyelocytes) > 1% indicates that a LEFT SHIFT is Present. Laboratory - Chemistry and C hemistry - challengeOrdered By: [facility] Delaney Dietrich on 12-23-2024 AST [Catalytic activity/Vol] 25 U/L <32 [facility] Low density lipoprotein (LDL ) cholesterol measurementOrdered By: [facility] Delaney Dietrich on 12-23-2024 Cholesterol in LDL [Mass/Vol] 97 mg/dL 0-130 [facility] Lymphocytes Auto (Unsp spec) [#/Vol]Ordered By: [facility] Delaney Dietrich on 12-23-2024 Lymphocytes (Bld) [#/Vol] 2.08 10*3/uL 0.83-4.51 [facility] Lymphocytes/100 WBC Auto (Un sp spec)Ordered By: [facility] Delaney Dietrich on 12-23-2024 Lymphocytes/100 WBC (Bld) 30.7 % 19-41 [facility] MCV (mean corpuscular volume ) determinationOrdered By: [facility] Delaney Dietrich on 12-23-2024 MCV (RBC) [Entitic vol] 92.9 fL 81-99 [facility] Mean corpuscular hemoglobin (MCH) determinationOrdered By: [facility] Delaney Dietrich on 12-23-2024 MCH (RBC) [Entitic mass] 30.3 pg 27.0-32.0 [facility] Mean corpuscular hemoglobin concentration (MCHC) determinationOrdered By: [facility] Delaney Dietrich on 12-23-2024 MCHC (RBC) [Mass/Vol] 32.7 g/dL 32-36 [facility] Mean platelet volume determi nationOrdered By: [facility] Delaney Dietrich on 12-23-2024 Platelet mean volume (Bld) [Entitic vol] 9.6 fL 6.2-12.0 [facility] Monocyte percentageOrdered B y: [facility] Delaney Dietrich on 12-23-2024 Monocytes/100 WBC (Bld) 5.3 % 0-10 [facility] Neutrophil percentageOrdered By: [facility] Delaney Dietrich on 12-23-2024 Neutrophils/100 WBC (Bld) 61.8 % 47-70 [facility] No Panel InformationOrdered By: [facility] Delaney Dietrich on 12-23-2024 Vitamin D 25-Hydroxy 40.9 ng/mL 30-100 [facility] Comment on above: Vitamin D StatusDefi ciency: <20 ng/mL (50nmol/L)Insufficiency: 20-30 ng/mL (50-75 nmol/L)Sufficiency: 30-100 ng/mL (75-250 nmol/L)Toxicity: >100 ng/mL (>250 nmol/L) Nucleated red blood cell per centageOrdered By: KIRAN Dietrich on 12-23-2024 Nucleated RBC/100 WBC (Bld) [Ratio] 0 % 0-5 [facility] Platelet countOrdered By: [facility] Delaney Dietrich on 12-23-2024 Platelets (Bld) [#/Vol] 288 10*3/uL 150-450 [facility] RBC Auto (Bld) [#/Vol]Ordere d By: [facility] Delaney Dietrich on 12-23-2024 RBC (Bld) [#/Vol] 4.22 10*6/uL 4.2-5.4 [facility] Serum globulin measurementOr dered By: [facility] Delaney Dietrich on 12-23-2024 Globulin (S) [Mass/Vol] 2.8 g/dL 2.2-4.2 [facility] Serum glucose measurement (m ass/volume)Ordered By: [facility] Delaney Dietrich on 12-23-2024 Glucose [Mass/Vol] 87 mg/dL 70-99 [facility] Serum or plasma alanine marroquin otransferase (ALT) measurementOrdered By: [facility] Delaney Dietrich on 12-23-2024 ALT [Catalytic activity/Vol] 12 U/L <35 [facility] Serum or plasma albumin kari urement (mass/volume)Ordered By: [facility] Delaney Dietrich on 12-23-2024 Albumin [Mass/Vol] 4.4 g/dL 3.4-4.8 [facility] Serum or plasma albumin/glob ulin mass ratioOrdered By: [facility] on 12-23-2024 Albumin/Globulin [Mass ratio] 1.6 {ratio} 0.9-2.4 [facility] Serum or plasma alkaline jonah sphatase measurementOrdered By: [facility] Karlo on 12-23-2024 ALP [Catalytic activity/Vol] 76 U/L 35-104 [facility] Serum or plasma anion gap de termination (moles/volume)Ordered By: [facility] Karlo on 12-23-2024 Anion gap [Moles/Vol] 13 mmol/L 5-15 [facility] Serum or plasma calcium kari urement (mass/volume)Ordered By: [facility] on 12-23-2024 Calcium [Mass/Vol] 9.4 mg/dL 7.6-11.0 [facility] Serum or plasma cholesterol in HDL measurement (mass/volume)Ordered By: [facility] Karlo on 12-23-2024 Cholesterol in HDL [Mass/Vol] 55 mg/dL >40 [facility] Comment on above: The drugs N-Acetylcy steine and Metamizole may falsely depress this assay. National Cholesterol Education Program (NCEP) guidelines:<40 mg/dL: Low HDL-cholesterol (major risk factor for CHD)>= 60 mg/dL: High HDL-cholesterol (negative risk factor for CHD)HDL-cholesterol is affected by a number of factors, e.g. smoking, exercise, hormones, sex and age. Serum or plasma cholesterol in VLDL measurement (mass/volume)Ordered By: [facility] on 12-23-2024 Cholesterol in VLDL [Mass/Vol] 29 mg/dL 5-40 [facility] Serum or plasma cholesterol measurement (mass/volume)Ordered By: [facility] on 12-23-2024 Cholesterol [Mass/Vol] 181 mg/dL <201 [facility] Comment on above: Cholesterol level, D esirable <200 mg/dLBorderline high cholesterol 200-239 mg/dLHigh cholesterol >=240 mg/dLRecommendations of the NCEP Adult Treatment Panel for the following risk-cutoff thresholds for the [place] population. Serum or plasma creatinine m easurement (moles/volume)Ordered By: [facility] Delaney Dietrich on 12-23-2024 Creatinine [Moles/Vol] 0.9 mg/dL 0.6-1.0 [facility] Serum or plasma potassium me asurementOrdered By: [facility] Delaney Dietrich on 12-23-2024 Potassium [Moles/Vol] 4.0 mmol/L 3.3-5.1 [facility] Serum or plasma sodium measu rement (moles/volume)Ordered By: [facility] Delaney Dietrich on 12-23-2024 Sodium [Moles/Vol] 140 mmol/L 133-145 [facility] Serum or plasma urea nitroge n measurement (mass/volume)Ordered By: [facility] Delaney Dietrich on 12-23-2024 Urea nitrogen [Mass/Vol] 12 mg/dL 4-19 [facility] TSH DL <= 0.005 mIU/L QnOrde red By: [facility] Delaney Dietrich on 12-23-2024 Thyroid Stimulating Hormone (TSH) 1.260 uIU/mL 0.300-4.200 [facility] TSH Qn 1.260 uIU/mL 0.300-4.200 [facility] Total proteinOrdered By: [facility] Delaney Dietrich on 12-23-2024 Protein [Mass/Vol] 7.2 g/dL 5.9-8.4 [facility] Triglycerides measurementOrd ered By: [facility] Delaney Dietrich on 12-23-2024 Triglyceride [Mass/Vol] 145 mg/dL <199 [facility] Comment on above: The drugs N-Acetylcy steine and Metamizole may falsely depress this assay. Normal range: <150 mg/dLBorderline High: 150-199 mg/dLHigh: 200-499 mg/dLVery High: >500 mg/dL White blood cell (WBC) count Ordered By: [facility] Delaney Dietrich on 12-23-2024 WBC (Bld) [#/Vol] 6.8 10*3/uL 4.4-11.0 [facility] CNOVon 11-20-2024 CNOV Office Visit ([facility] ) TOÑOLAINE ([id number]) 1955 F Date Time Provider Department 11/20/24 11:30 AM GIBSONJULIOCONNOR [facility] During your visit today, we recorded the following information about you: Temperature Pulse Respiration Blood pressure 98 degrees 92/minute 20/minute 160/102 Weight 63.9 kg Connor He, MENG.PROCESS DESCRIPTION WRITER 11/20/2024 12:02 PM Signed Subjective HPI Nontoxic-appearing female presents urgent care chief complaint cough chest congestion. Duration of symptoms 2 and half weeks. Associated symptoms sinus pressure cough chest congestion. States cough is productive in the morning. OTC medication little no success. No pain. Denies any fevers chest pain or hemoptysis. Past medical history prescription medications allergies reviewed. .Patient presents with: Cough: Chest congestion, sore throat x 2.5 weeks History reviewed. No pertinent past medical history. History reviewed. No pertinent surgical history. ALLERGIES Patient has no known allergies. MEDICATIONS clopidogrel (PLAVIX) 75 mg tablet Take 75 mg by mouth once daily. lisinopril (ZESTRIL) 20 mg tablet Take 20 mg by mouth once daily. metoprolol succinate ER (TOPROL XL) 100 mg Take 100 mg by mouth once daily. sertraline (ZOLOFT) 100 mg tablet Take 100 mg by mouth once daily. atorvastatin (LIPITOR) 80 mg tablet Take 80 mg by mouth once daily. History reviewed. No pertinent family history. Social History Tobacco Use Smoking status: Former Types: Cigarettes Smokeless tobacco: Never Vaping Use Vaping status: current everyday user Substances: Nicotine BP 160/102 Pulse 92 Temp 36.7 ?C (98 ?F) Resp 20 Wt 63.9 kg (140 lb 14 oz) SpO2 98% Review of Systems Constitutional: Negative for chills, fever and malaise/fatigue. HENT: Positive for congestion, sinus pain and sore throat. Negative for ear discharge and ear pain. Eyes: Negative for blurred vision, pain, discharge and redness. Respiratory: Positive for cough and sputum production. Negative for hemoptysis, shortness of breath, wheezing and stridor. Cardiovascular: Negative for chest pain. Gastrointestinal: Negative for abdominal pain, diarrhea, nausea and vomiting. Musculoskeletal: Negative for myalgias. Skin: Negative for itching and rash. Neurological: Negative for dizziness and headaches. Objective Physical Exam Constitutional: General: She is not in acute distress. Appearance: She is not diaphoretic. HENT: Head: Normocephalic. Jaw: No trismus, tenderness, swelling or pain on movement. Nose: Congestion present. Right Sinus: Maxillary sinus tenderness present. Left Sinus: Maxillary sinus tenderness present. Mouth/Throat: Mouth: Mucous membranes are moist. Pharynx: Oropharynx is clear. Uvula midline. No pharyngeal swelling, oropharyngeal exudate, posterior oropharyngeal erythema or uvula swelling. Eyes: Conjunctiva/sclera: Conjunctivae normal. Pupils: Pupils are equal, round, and reactive to light. Cardiovascular: Rate and Rhythm: Normal rate and regular rhythm. Heart sounds: Normal heart sounds. Pulmonary: Effort: Pulmonary effort is normal. No tachypnea, accessory muscle usage or respiratory distress. Breath sounds: Normal breath sounds. No stridor. No wheezing, rhonchi or rales. Abdominal: General: There is no distension. Palpations: Abdomen is soft. Tenderness: There is no abdominal tenderness. There is no guarding or rebound. Musculoskeletal: Cervical back: Normal range of motion and neck supple. No edema, erythema, rigidity or tenderness. No pain with movement. Normal range of motion. Lymphadenopathy: Cervical: No cervical adenopathy. Skin: General: Skin is warm and dry. Neurological: Mental Status: She is alert and oriented to person, place, and time. ASSESSMENT/PLAN: 1. Sinobronchitis - ICD9: 473.9, 490, ICD10: J32.9, J40 Diagnosed sinobronchitis. Placed on doxycycline. Chest x-ray offered. Declined at this visit. Will follow-up with PCP on Sunday if symptoms are not improving. Patient was educated on supportive therapies. Patient will follow up with primary care provider as needed. Patient was instructed to immediately proceed to emergency room for any new, worsening, or symptoms lasting longer than anticipated. The patient's clinical presentation is otherwise unremarkable at this time. Based on exam and clinical finding, the patient is stable for discharge. Plan of care was discussed with patient. Patient verbalizes understanding and agrees to plan of care. This note was generated using [employer] software. It may contain errors in wording, punctuation, or spelling. Connor He APRN.PROCESS DESCRIPTION WRITER Allergies As of Date: 11/20/2024 (No Known Allergies) Date Reviewed: 11/20/2024 Reviewed by: Connor He APRN.PROCESS DESCRIPTION WRITER - Fully Assessed Reason for Visit: Cough [28] Cmt: Chest congestion (more content not included)... Normal [facility] Hand Min 3 Viewson 4 Hand Min 3 Views [facility] [address] [place] [address] Hand Min 3 Views MR#: [id number] Acct: [id number] Name: LAINE MARCIAL Rep #: [id number] : 1955 F 68 From: Alfred Schilling MD PCP: [facility] Status: REG CLI Study: Hand Min 3 Views Date of Exam: 08/07/24 Exam# [id number] Ordering Dr: Delaney Dietrich [facility] [address] RECORDER-C [id number] EXAM: XR LEFT HAND COMPLETE, 3 OR MORE VIEWS CLINICAL INDICATION: SPRAIN TECHNIQUE: Frontal, lateral and oblique views of the left hand. COMPARISON: No relevant prior studies available. FINDINGS: BONES/JOINTS: Degenerative narrowing of the interphalangeal joints. No acute fracture or subluxation. SOFT TISSUES: Normal. No soft tissue swelling or gas. No radiopaque foreign body. RAD/Hand Min 3 Views IMPRESSION: No acute bone or joint abnormality. DJD. Electronically Signed: Alfred Schilling MD at 16:40 EDT , CC: [facility] RECORDER-C Delaney Dietrich; [facility] Implementation Architect: Signed Normal [facility] Wrist min 3 Viewson 08-07-20 24 Wrist min 3 Views [facility] [address] [place] [address] Wrist min 3 Views MR#: [id number] Acct: [id number] Name: LAINE MARCIAL Rep #: [id number] : 1955 F 68 From: Alfred Schilling MD PCP: [facility] Status: REG CLI Study: Wrist min 3 Views Date of Exam: 08/07/24 Exam# [id number] Ordering Dr: Delaney Dietrich [facility] RECORDER-C [id number] EXAM: XR LEFT WRIST COMPLETE, 3 OR MORE VIEWS CLINICAL INDICATION: SPRAIN TECHNIQUE: Frontal, lateral and oblique views of the left wrist. COMPARISON: No relevant prior studies available. FINDINGS: BONES/JOINTS: No acute abnormality. SOFT TISSUES: Normal. No soft tissue swelling or gas. No radiopaque foreign body. RAD/Wrist min 3 Views IMPRESSION: Intact left wrist. Electronically Signed: Alfred Schilling MD at 16:40 EDT , CC: [facility] RECORDER-C Delaney Dietrich; [facility] Implementation Architect: Signed Normal [facility] CNOVon 07-15-2024 CNOV Office Visit (UCWSTR ) LAINE MARCIAL ([id number]) 1955 F Date Time Provider Department 07/15/24 6:45 PM [facility] During your visit today, we recorded the following information about you: Temperature Pulse Respiration Blood pressure 98.6 degrees 79/minute 18/minute 166/84 Weight 63 kg Connor He, MENG.PROCESS DESCRIPTION WRITER 07/15/2024 7:49 PM Signed Subjective HPI Nontoxic-appearing female presents urgent care accompanied by family member. Chief complaint fall. Duration of symptoms today. States fell earlier today. Tripped over a fence. Landed on outstretched hand. Landed on left arm. Presents today with wrist and forearm discomfort. Denies any other injuries. No head neck or back pain. No LOC. No nausea vomiting visual changes headaches or dizziness. Denies surgeries or fractures to this hand in the past. [id number]. Past medical history prescription medications allergies reviewed. .Patient presents with: Fall: Pt fell today this afternoon outside of her home, attmepted to stop herself and fell onto her L arm. Pain radiates up to elbow and hand is numb History reviewed. No pertinent past medical history. History reviewed. No pertinent surgical history. ALLERGIES Patient has no known allergies. MEDICATIONS clopidogrel (PLAVIX) 75 mg tablet Take 75 mg by mouth once daily. lisinopril (ZESTRIL) 20 mg tablet Take 20 mg by mouth once daily. metoprolol succinate ER (TOPROL XL) 100 mg Take 100 mg by mouth once daily. sertraline (ZOLOFT) 100 mg tablet Take 100 mg by mouth once daily. atorvastatin (LIPITOR) 80 mg tablet Take 80 mg by mouth once daily. History reviewed. No pertinent family history. Social History Tobacco Use Smoking status: Former Types: Cigarettes Smokeless tobacco: Never Vaping Use Vaping status: current everyday user Substances: Nicotine BP 182/72 Pulse 79 Temp 37 ?C (98.6 ?F) Resp 18 Wt 63 kg (138 lb 14.2 oz) SpO2 98% Review of Systems Constitutional: Negative for chills, fever and malaise/fatigue. HENT: Negative for congestion, ear discharge, ear pain, sinus pain and sore throat. Eyes: Negative for blurred vision, pain, discharge and redness. Respiratory: Negative for cough, hemoptysis, sputum production, shortness of breath, wheezing and stridor. Cardiovascular: Negative for chest pain. Gastrointestinal: Negative for abdominal pain, diarrhea, nausea and vomiting. Musculoskeletal: Positive for falls and joint pain. Negative for back pain, myalgias and neck pain. Skin: Negative for itching and rash. Neurological: Negative for dizziness and headaches. Objective Physical Exam Constitutional: General: She is not in acute distress. Appearance: She is not toxic-appearing. HENT: Head: Normocephalic. Nose: Nose normal. Eyes: Pupils: Pupils are equal, round, and reactive to light. Cardiovascular: Rate and Rhythm: Normal rate. Pulmonary: Effort: Pulmonary effort is normal. No respiratory distress. Musculoskeletal: Left upper arm: Normal. Left elbow: No swelling, deformity, effusion or lacerations. Normal range of motion. No tenderness. Left forearm: Tenderness and bony tenderness present. No swelling, edema, deformity or lacerations. Left wrist: Tenderness, bony tenderness and snuff box tenderness present. No swelling, deformity, effusion or lacerations. Normal range of motion. Normal pulse. Left hand: No swelling, deformity, lacerations, tenderness or bony tenderness. Normal range of motion. Normal strength. Normal sensation. Normal capillary refill. Normal pulse. Arms: Cervical back: Normal range of motion. Comments: Pain with palpation highlighted area. No erythema noted. No breaks in the skin. Neurovascular intact. Full range of motion. Skin: General: Skin is warm and dry. Neurological: General: No focal deficit present. Mental Status: She is alert. ASSESSMENT/PLAN: 1. Pain of left upper extremity - ICD9: 729.5, ICD10: M79.602 - XR WRIST INJURY 4V PA/LAT/OBL/SCAPH LEFT - XR FOREARM GENERAL 2V AP/LAT LEFT IMPRESSION: No acute abnormality. IMPRESSION: No acute abnormality. No acute abnormal findings noted on x-ray. Treat as wrist sprain. Placed in a cock up splint. Patient was educated on supportive therapies. Patient will follow up with primary care provider 7 to 10 days. Patient was instructed to immediately proceed to emergency room for any new, worsening, or symptoms lasting longer than anticipated. The patient's clinical presentation is otherwise unremarkable at this time. Based on exam and clinical finding, the patient is stable for discharge. Plan of care was discussed with patient. Patient verbalizes understanding and agrees to plan of care. This note was generated using Kyp software. It may contain errors in wording, punctuation, or spelling. Connor He, MENG. (more content not included)... Normal [facility] No Panel Informationon 07-15 IMPRESSION: No acute abnormality. Implementation Architect: PSCB Transcribe Date/Time: Jul 15 2024 7:29P Dictated by : TEENA CARR MD This examination was interpreted and the report reviewed and electronically signed by: TEENA CARR MD on Jul 15 2024 7:31PM EST DIVISION OF RADIOLOGY Radiology Study observation (narrative) [facility] Panel InformationOrdered By: [facility] Provider on 07-15-2024 [facility] XR FOREARM 2V AP/LAT LTon XR FOREARM 2V AP/LAT LT * * *Final Repor t* * * DATE OF EXAM: Jul 15 2024 7:12PM WOX 5341 - XR FOREARM 2V AP/LAT LT / PROCEDURE REASON: Pain of left upper extremity * * * * Physician Interpretation * * * * EXAMINATION: XR WRIST 4V PA/LAT/OBL/SCAPH LT, XR FOREARM 2V AP/LAT LT CLINICAL HISTORY: Pain of left upper extremity Technique: XR WRIST 4V PA/LAT/OBL/SCAPH LT, XR FOREARM 2V AP/LAT LT -- LEFT with 4 (accession [id number]), 2 (accession [id number]) views on 4 (accession [id number]), 2 (accession [id number]) images Comparison: None RESULT: There is no acute fracture or malalignment. There is no radiopaque foreign body or soft tissue gas. IMPRESSION: No acute abnormality. Implementation Architect: PSCB Transcribe Date/Time: Jul 15 2024 7:29P Dictated by : TEENA CARR MD This examination was interpreted and the report reviewed and electronically signed by: TEENA CARR MD on Jul 15 2024 7:31PM EST [id number] Normal [facility] XR Radius and Ulna - left AP and Lateralon 07-15-2024 * * *Final Report* * * DATE OF EXAM: Jul 15 2024 7:12PM WOX 5341 - XR FOREARM 2V AP/LAT LT / PROCEDURE REASON: Pain of left upper extremity * * * * Physician Interpretation * * * * EXAMINATION: XR WRIST 4V PA/LAT/OBL/SCAPH LT, XR FOREARM 2V AP/LAT LT CLINICAL HISTORY: Pain of left upper extremity Technique: XR WRIST 4V PA/LAT/OBL/SCAPH LT, XR FOREARM 2V AP/LAT LT -- LEFT with 4 (accession [id number]), 2 (accession [id number]) views on 4 (accession [id number]), 2 (accession [id number]) images Comparison: None RESULT: There is no acute fracture or malalignment. There is no radiopaque foreign body or soft tissue gas. DIVISION OF RADIOLOGY Provider, [facility] - 07/15/2024 * * *Final Report* * * DATE OF EXAM: Jul 15 2024 7:12PM WOX 5341 - XR FOREARM 2V AP/LAT LT / PROCEDURE REASON: Pain of left upper extremity * * * * Physician Interpretation * * * * EXAMINATION: XR WRIST 4V PA/LAT/OBL/SCAPH LT, XR FOREARM 2V AP/LAT LT CLINICAL HISTORY: Pain of left upper extremity Technique: XR WRIST 4V PA/LAT/OBL/SCAPH LT, XR FOREARM 2V AP/LAT LT -- LEFT with 4 (accession [id number]), 2 (accession [id number]) views on 4 (accession [id number]), 2 (accession [id number]) images Comparison: None RESULT: There is no acute fracture or malalignment. There is no radiopaque foreign body or soft tissue gas. IMPRESSION IMPRESSION: No acute abnormality. Implementation Architect: CHIN Transcribe Date/Time: Jul 15 2024 7:29P Dictated by : TEENA CARR MD This examination was interpreted and the report reviewed and electronically signed by: TEENA CARR MD on Jul 15 2024 7:31PM [facility] XR WRIST 4V PA/LAT/OBL/SCAPH LTon 07-15-2024 XR WRIST 4V PA/LAT/OBL/SCAPH LT * * *Final Report* * * DATE OF EXAM: Jul 15 2024 7:12PM WOX 5272 - XR WRIST 4V PA/LAT/OBL/SCAPH LT / PROCEDURE REASON: Pain of left upper extremity * * * * Physician Interpretation * * * * EXAMINATION: XR WRIST 4V PA/LAT/OBL/SCAPH LT, XR FOREARM 2V AP/LAT LT CLINICAL HISTORY: Pain of left upper extremity Technique: XR WRIST 4V PA/LAT/OBL/SCAPH LT, XR FOREARM 2V AP/LAT LT -- LEFT with 4 (accession [id number]), 2 (accession [id number]) views on 4 (accession [id number]), 2 (accession [id number]) images Comparison: None RESULT: There is no acute fracture or malalignment. There is no radiopaque foreign body or soft tissue gas. IMPRESSION: No acute abnormality. Implementation Architect: PSCB Transcribe Date/Time: Jul 15 2024 7:29P Dictated by : TEENA CARR MD This examination was interpreted and the report reviewed and electronically signed by: TEENA CARR MD on Jul 15 2024 7:31PM EST [id number] Normal [facility] XR Wrist - left 4 Viewson * * *Final Report* * * DATE OF EXAM: Jul 15 2024 7:12PM WOX 5272 - XR WRIST 4V PA/LAT/OBL/SCAPH LT / PROCEDURE REASON: Pain of left upper extremity * * * * Physician Interpretation * * * * EXAMINATION: XR WRIST 4V PA/LAT/OBL/SCAPH LT, XR FOREARM 2V AP/LAT LT CLINICAL HISTORY: Pain of left upper extremity Technique: XR WRIST 4V PA/LAT/OBL/SCAPH LT, XR FOREARM 2V AP/LAT LT -- LEFT with 4 (accession [id number]), 2 (accession [id number]) views on 4 (accession [id number]), 2 (accession [id number]) images Comparison: None RESULT: There is no acute fracture or malalignment. There is no radiopaque foreign body or soft tissue gas. DIVISION OF RADIOLOGY Provider, [facility] - 07/15/2024 * * *Final Report* * * DATE OF EXAM: Jul 15 2024 7:12PM WOX 5272 - XR WRIST 4V PA/LAT/OBL/SCAPH LT / PROCEDURE REASON: Pain of left upper extremity * * * * Physician Interpretation * * * * EXAMINATION: XR WRIST 4V PA/LAT/OBL/SCAPH LT, XR FOREARM 2V AP/LAT LT CLINICAL HISTORY: Pain of left upper extremity Technique: XR WRIST 4V PA/LAT/OBL/SCAPH LT, XR FOREARM 2V AP/LAT LT -- LEFT with 4 (accession [id number]), 2 (accession [id number]) views on 4 (accession [id number]), 2 (accession [id number]) images Comparison: None RESULT: There is no acute fracture or malalignment. There is no radiopaque foreign body or soft tissue gas. IMPRESSION IMPRESSION: No acute abnormality. Implementation Architect: PSCB Transcribe Date/Time: Jul 15 2024 7:29P Dictated by : TEENA CARR MD This examination was interpreted and the report reviewed and electronically signed by: TEENA CARR MD on Jul 15 2024 7:31PM EST [facility] Absolute lymphocyte countOrd ered By: [facility] Delaneyjhony Dietrich on 01-14-2024 Lymphocytes Auto (Unsp spec) [#/Vol] 1.39 10*3/uL 0.83-4.51 [facility] Automated lymphocyte count a s percentage of total leukocytesOrdered By: [facility] Delaney Dietrich on 01-14-2024 Lymphocytes/100 WBC Auto (Unsp spec) 28.3 % 19-41 [facility] Basophil percentageOrdered B y: [facility] Delaney Dietrich on 01-14-2024 Basophils/100 WBC (Bld) 0.4 % 0-1 [facility] Bilirubin [Mass/Vol] 0.40 mg/dL 0.20-1.00 [facility] Comment on above: For patients on eltr ombopag therapy, use of Dimension [place] TBIL is not recommended. Chloride [Moles/Vol] 107 mmol/L 98-107 [facility] Cholesterol [Mass/Vol] 174 mg/dL <200 [facility] Comment on above: <200 mg/dL Desirable 200-240 mg/dL Borderline >240 mg/dL High Risk Eosinophils/100 WBC (Bld) 1.6 % 0-5 [facility] Glucose [Mass/Vol] 110 mg/dL 74-106 [facility] Comment on above: Fasting Glucose resu lt from 100 to 125 mg/dL suggests IMPAIRED HOMEOSTASIS per A.D.A. criteria. Hemoglobin (Bld) [Mass/Vol] 12.5 g/dL 12.0-15.0 [facility] Monocytes/100 WBC (Bld) 5.1 % 0-10 [facility] Neutrophils (Bld) [#/Vol] 3.2 10*3/uL 2.0-7.7 [facility] Neutrophils/100 WBC (Bld) 64.4 % 47-70 [facility] Potassium [Moles/Vol] 3.7 mmol/L 3.5-5.1 [facility] Protein [Mass/Vol] 7.2 g/dL 6.4-8.2 [facility] Sodium [Moles/Vol] 142 mmol/L 136-145 [facility] Triglyceride [Mass/Vol] 203 mg/dL <199 [facility] Comment on above: The drugs N-Acetylcy steine and Metamizole may falsely depress this assay.Serum Triglycerides Reference Interval Normal <150 mg/dL Borderline high 150 - 199 mg/dL High 200 - 499 mg/dL Very High > or = 500 mg/dL WBC (Bld) [#/Vol] 4.9 10*3/uL 4.4-11.0 [facility] Determination of erythrocyte mean corpuscular volume (MCV)Ordered By: [facility] Delaney Dietrich on 01-14-2024 MCV (RBC) [Entitic vol] 93.1 fL 81-99 [facility] Erythrocyte distribution wid th ratioOrdered By: [facility] Delaney Dietrich on 01-14-2024 Erythrocyte distribution width (RBC) [Ratio] 13.8 % 11.6-14.6 [facility] Erythrocyte distribution wid th standard deviationOrdered By: [facility] Delaney Dietrich on 01-14-2024 Erythrocyte distribution width (RBC) [Entitic vol] 46.9 fL 35.1-43.9 [facility] Hematocrit Auto (Bld) [Volum e fraction]Ordered By: [facility] Delaney Dietrich on 01-14-2024 Hematocrit (Bld) [Volume fraction] 37.9 % 37-47 [facility] Immature granulocytes/100 WB C Auto (Bld)Ordered By: [facility] Delaney Dietrich on 01-14-2024 Immature granulocytes/100 WBC (Bld) 0.200 % 0.0-0.9 [facility] Comment on above: IG% - Immature Granu locytes (promyelocytes, myelocytes and metamyelocytes) > 1% indicates that a LEFT SHIFT is Present. Laboratory - Chemistry and C hemistry - challengeOrdered By: [facility] Delaneyjhony Dietrich on 01-14-2024 Albumin/Globulin [Mass ratio] 1.1 {ratio} 0.9-2.4 [facility] ALP [Catalytic activity/Vol] 78 U/L 45-117 [facility] ALT [Catalytic activity/Vol] 19 U/L 13-56 [facility] Cholesterol in HDL [Mass/Vol] 55 mg/dL >40 [facility] Comment on above: The drugs N-Acetylcy steine and Metamizole may falsely depress this assay. Reference Range HDL <40 mg/dL Low HDL Cholesterol HDL >or= 60 mg/dL High HDL Cholesterol Cholesterol in LDL [Mass/Vol] 78 mg/dL 0-130 [facility] CO2 [Moles/Vol] 31.0 mmol/L 21.0-32.0 [facility] Globulin (S) [Mass/Vol] 3.5 g/dL 2.2-4.2 [facility] Urea nitrogen/Creatinine [Mass ratio] 17.6 mg/mg 10-20 [facility] Laboratory - Hematology and Cell countsOrdered By: [facility] Delaney Karlo on 01-14-2024 MCH (RBC) [Entitic mass] 30.7 pg 27.0-32.0 [facility] MCHC (RBC) [Mass/Vol] 33.0 g/dL 32-36 [facility] Nucleated RBC/100 WBC (Bld) [Ratio] 0 % 0-5 [facility] Platelet mean volume (Bld) [Entitic vol] 9.1 fL 6.2-12.0 [facility] Platelets (Bld) [#/Vol] 230 10*3/uL 150-450 [facility] No Panel InformationOrdered By: [facility] Delaneyjhony Dietrich on 01-14-2024 Estimated GFR (MDRD) Amer 85 mL/min >60 [facility] Comment on above: GFR Calc Estimated GFR (MDRD) Non-Af Amer 70 mL/min >60 [facility] Comment on above: Non- GFR Calc Urine Microalbumin/Creatinine Ratio 12.0 mg/g CRE <30 [facility] VLDL Cholesterol 41 mg/dL 5-40 [facility] RBC Auto (Bld) [#/Vol]Ordere d By: [facility] Delaney Karlo on 01-14-2024 RBC (Bld) [#/Vol] 4.07 10*6/uL 4.2-5.4 [facility] Serum or plasma calcium kari urement (mass/volume)Ordered By: [facility] Delaneyjhony Dietrich on 01-14-2024 Calcium [Mass/Vol] 8.9 mg/dL 8.5-10.1 [facility] Serum or plasma creatinine m easurement (mass/volume)Ordered By: [facility] Delaneyjhony Dietrich on 01-14-2024 Creatinine [Mass/Vol] 0.85 mg/dL 0.55-1.02 [facility] Comment on above: The validity of the calculated GFR & GFRAA in patients over 70 years has not been determined. Clinical correlation is essential. Serum or plasma thyroid stim ulating hormone (TSH) measurement (units/volume)Or[facility]: [facility] on 01-14-2024 TSH Qn 1.77 uIU/mL 0.358-3.74 [facility] Serum or plasma urea nitroge n measurement (mass/volume)Ordered By: [facility] Delaneyjhony Dietrich on 01-14-2024 Urea nitrogen [Mass/Vol] 15 mg/dL 7-18 [facility] Thin prep Papanicolaou smear with manual screeningOrdered By: [facility] 01-14-2024 Thin prep Papanicolaou smear with manual screening 3.7 g/dL 3.2-5.0 [facility] Thin prep Papanicolaou smear with manual screening 16 U/L 15-37 [facility] Thin prep Papanicolaou smear with manual screening 4 5-15 [facility] Thin prep Papanicolaou smear with manual screening 25.9 mg/L NO RANGE EST. [facility] Urine creatinine measurement (mass/volume)Ordered By: [facility] on 01-14-2024 Creatinine (U) [Mass/Vol] 215.00 mg/dL NO RANGE EST. [facility] Absolute lymphocyte counton 10-04-2022 Lymphocytes Auto (Unsp spec) [#/Vol] 1.87 10*3/uL 0.83-4.51 [facility] Work Phone: Basophil percentageon 2021 Basophils/100 WBC (Bld) 0.3 % 0-1 [facility] Work Phone: Bilirubin [Mass/Vol] 0.40 mg/dL 0.20-1.00 [facility] Work Phone: Comment on above: For patients on eltr ombopag therapy, use of Dimension [place] TBIL is not recommended. Chloride [Moles/Vol] 110 mmol/L 98-107 [facility] Work Phone: Cholesterol [Mass/Vol] 184 mg/dL <200 [facility] Work Phone: Comment on above: <200 mg/dL Desirable 200-240 mg/dL Borderline >240 mg/dL High Risk Eosinophils/100 WBC (Bld) 1.2 % 0-5 [facility] Work Phone: [phone] Glucose [Mass/Vol] 105 mg/dL 74-106 [facility] Work Phone: Comment on above: Fasting Glucose resu lt from 100 to 125 mg/dL suggests IMPAIRED HOMEOSTASIS per A.D.A. criteria. Neutrophils (Bld) [#/Vol] 3.6 10*3/uL 2.0-7.7 [facility] Work Phone: Neutrophils/100 WBC (Bld) 60.3 % 47-70 [facility] Work Phone: Potassium [Moles/Vol] 4.0 mmol/L 3.5-5.1 [facility] Work Phone: Protein [Mass/Vol] 7.4 g/dL 6.4-8.2 [facility] Work Phone: Sodium [Moles/Vol] 142 mmol/L 136-145 [facility] Work Phone: Triglyceride [Mass/Vol] 209 mg/dL <199 [facility] Work Phone: Comment on above: The drugs N-Acetylcy steine and Metamizole may falsely depress this assay.Serum Triglycerides Reference Interval Normal <150 mg/dL Borderline high 150 - 199 mg/dL High 200 - 499 mg/dL Very High > or = 500 mg/dL WBC (Bld) [#/Vol] 5.9 10*3/uL 4.4-11.0 [facility] Work Phone: [phone] Blood erythrocytes count (nu mber/volume)on 10-04-2022 RBC (Bld) [#/Vol] 4.29 10*6/uL 4.2-5.4 [facility] Work Phone: [phone] Blood hemoglobin measurement (mass/volume)on 10-04-2022 Hemoglobin (Bld) [Mass/Vol] 13.0 g/dL 12.0-15.0 [facility] Work Phone: [phone] Blood lymphocytes/100 leukoc yteson 10-04-2022 Lymphocytes/100 WBC (Bld) 31.7 % 19-41 [facility] Work Phone: [phone] Blood monocytes/100 leukocyt eson 10-04-2022 Monocytes/100 WBC (Bld) 6.3 % 0-10 [facility] Work Phone: [phone] Blood platelet mean volumeon 10-04-2022 Platelet mean volume (Bld) [Entitic vol] 9.5 fL 6.2-12.0 [facility] Work Phone: Determination of erythrocyte mean corpuscular volume (MCV)on 10-04-2022 MCV (RBC) [Entitic vol] 93.2 fL 81-99 [facility] Work Phone: [phone] Hematocrit Auto (Bld) [Volum e fraction]on 10-04-2022 Hematocrit (Bld) [Volume fraction] 40.0 % 37-47 [facility] Work Phone: [phone] Laboratory - Chemistry and C hemistry - challengeon 10-04-2022 ALP [Catalytic activity/Vol] 85 U/L 45-117 [facility] Work Phone: [phone] ALT [Catalytic activity/Vol] 16 U/L 13-56 [facility] Work Phone: [phone] CO2 [Moles/Vol] 30.0 mmol/L 21.0-32.0 [facility] Work Phone: [phone] Globulin (S) [Mass/Vol] 3.5 g/dL 2.2-4.2 [facility] Work Phone: [phone] Urea nitrogen/Creatinine [Mass ratio] 14.7 mg/mg 10-20 [facility] Work Phone: [phone] Laboratory - Hematology and Cell countson 10-04-2022 Erythrocyte distribution width (RBC) [Entitic vol] 43.8 fL 35.1-43.9 [facility] Work Phone: [phone] Erythrocyte distribution width (RBC) [Ratio] 12.8 % 11.6-14.6 [facility] Work Phone: [phone] Immature granulocytes/100 WBC (Bld) 0.200 % 0.0-0.9 [facility] Work Phone: [phone] Comment on above: IG% - Immature Granu locytes (promyelocytes, myelocytes and metamyelocytes) > 1% indicates that a LEFT SHIFT is Present. MCH (RBC) [Entitic mass] 30.3 pg 27.0-32.0 [facility] Work Phone: [phone] Nucleated RBC/100 WBC (Bld) [Ratio] 0 % 0-5 [facility] Work Phone: [phone] MCHC Auto (RBC) [Mass/Vol]on 10-04-2022 MCHC (RBC) [Mass/Vol] 32.5 g/dL 32-36 [facility] Work Phone: [phone] Panel Informationon 10-04 Estimated GFR (MDRD) Amer 82 mL/min >60 [facility] Work Phone: [phone] Comment on above: GFR Calc Estimated GFR (MDRD) Non-Af Amer 68 mL/min >60 [facility] Work Phone: [phone] Comment on above: Non- GFR Calc Troponin I High Sensitivity 6 pg/mL 3.0-54.0 [facility] Work Phone: [phone] Comment on above: Please Note: New Funmilayo t Units and Gender Specific Reference Ranges. For more information see Policy Stat Procedure [place] High Sensitivity Troponin (TNIH) and attachments. Platelets bldon 10-04-2022 Platelets (Bld) [#/Vol] 272 10*3/uL 150-450 [facility] Work Phone: Serum or plasma albumin kari urement (mass/volume)on 10-04-2022 Albumin [Mass/Vol] 3.9 g/dL 3.2-5.0 [facility] Work Phone: Serum or plasma albumin/glob ulin mass ratioon 10-04-2022 Albumin/Globulin [Mass ratio] 1.1 {ratio} 0.9-2.4 [facility] Work Phone: Serum or plasma calcium kari urement (mass/volume)on 10-04-2022 Calcium [Mass/Vol] 9.0 mg/dL 8.5-10.1 [facility] Work Phone: Serum or plasma cholesterol in HDL measurement (mass/volume)on 10-04-2022 Cholesterol in HDL [Mass/Vol] 53 mg/dL >40 [facility] Work Phone: Comment on above: The drugs N-Acetylcy steine and Metamizole may falsely depress this assay. Reference Range HDL <40 mg/dL Low HDL Cholesterol HDL >or= 60 mg/dL High HDL Cholesterol Serum or plasma cholesterol in VLDL measurement (mass/volume)on 10-04-2022 Cholesterol in VLDL [Mass/Vol] 42 mg/dL 5-40 [facility] Work Phone: Serum or plasma creatinine m easurement (mass/volume)on 10-04-2022 Creatinine [Mass/Vol] 0.88 mg/dL 0.55-1.02 [facility] Work Phone: Comment on above: The validity of the calculated GFR & GFRAA in patients over 70 years has not been determined. Clinical correlation is essential. Serum or plasma low density lipoprotein (LDL) cholesterol measurement (mass/volume)on 10-04-2022 Cholesterol in LDL [Mass/Vol] 89 mg/dL 0-130 [facility] Work Phone: Serum or plasma urea nitroge n measurement (mass/volume)on 10-04-2022 Urea nitrogen [Mass/Vol] 13 mg/dL 7-18 [facility] Work Phone: Thin prep Papanicolaou smear with manual screeningon 10-04-2022 Thin prep Papanicolaou smear with manual screening 15 U/L 15-37 [facility] Work Phone: Thin prep Papanicolaou smear with manual screening 2 5-15 [facility] Work Phone: Vital Signs Date Time Vital Sign Value Performing Clinician Facility 04-07-2025 10:01-0400 Body temperature 98.2 [degF] [facility] Work Phone: [facility] 04-07-2025 10:01-0400 Body weight 62.14 kg [facility] Work Phone: [phone])[phone] [place] [address] 04-07-2025 10:01-0400 Diastolic blood pressure 70 mm[Hg] [facility] Work Phone: 0([phone])[phone] [place] [address] 04-07-2025 10:01-0400 Heart rate 67 /min [facility] Work Phone: 9(558)684-862542 [place] [address] 04-07-2025 10:01-0400 Respiratory rate 14 /min [facility] Work Phone: 9(377)[phone] [address] 04-07-2025 10:01-0400 SaO2% (BldA) [Mass fraction] 99 % [facility] Work Phone: 0(911)098-048542 [place] [address] 04-07-2025 10:01-0400 Systolic blood pressure 110 mm[Hg] [facility] Work Phone: 2(726)114-492842 [place] [address] 02-13-2025 14:57-0400 Diastolic blood pressure 91 mm[Hg] [facility] Work Phone: 2(116)514-795057 [address] 02-13-2025 14:57-0400 Systolic blood pressure 191 mm[Hg] [facility] Work Phone: 1(348)938-395742 [place] [address] 02-13-2025 14:21-0400 Body height 154.94 cm [facility] Work Phone: [facility] 02-13-2025 14:21-0400 Body mass index (BMI) [Ratio] 26.2 kg/m2 [facility] Work Phone: [facility] 02-13-2025 14:21-0400 Body weight 63.04 kg [facility] Work Phone: [facility] 02-13-2025 14:21-0400 Heart rate 81 /min [facility] Work Phone: [facility] 02-13-2025 14:21-0400 Respiratory rate 18 /min [facility] Work Phone: [facility] 02-13-2025 14:21-0400 SaO2% (BldA) [Mass fraction] 96 % [facility] Work Phone: [facility] 11-20-2024 11:46-0500 Body temperature 98.01 [degF] Connor Pendlebury CUTTER IN.PROCESS DESCRIPTION WRITER Work Phone: [facility] 11-20-2024 11:46-0500 Body weight 63.9 kg Connor Pendlebury CUTTER IN.PROCESS DESCRIPTION WRITER Work Phone: [facility] 11-20-2024 11:46-0500 Diastolic blood pressure 102 mm[Hg] Connor Pendlebury CUTTER IN.PROCESS DESCRIPTION WRITER Work Phone: [facility] 11-20-2024 11:46-0500 Heart rate 92 /min Connor Pendlebury CUTTER IN.PROCESS DESCRIPTION WRITER Work Phone: [facility] 11-20-2024 11:46-0500 Respiratory rate 20 /min Connor Pendlebury CUTTER IN.PROCESS DESCRIPTION WRITER Work Phone: [facility] 11-20-2024 11:46-0500 SaO2% (BldA) [Mass fraction] 98 % Connor Pendlebury CUTTER IN.PROCESS DESCRIPTION WRITER Work Phone: [facility] 11-20-2024 11:46-0500 Systolic blood pressure 160 mm[Hg] Connor Pendlebury CUTTER IN.PROCESS DESCRIPTION WRITER Work Phone: [facility] 07-15-2024 19:26-0400 Diastolic blood pressure 84 mm[Hg] Connor Pendlebury CUTTER IN.PROCESS DESCRIPTION WRITER Work Phone: [facility] 07-15-2024 19:26-0400 Systolic blood pressure 166 mm[Hg] Connor Pendlebury CUTTER IN.PROCESS DESCRIPTION WRITER Work Phone: [facility] 07-15-2024 18:51-0400 Body temperature 98.6 [degF] Connor Pendlebury CUTTER IN.PROCESS DESCRIPTION WRITER Work Phone: [facility] 07-15-2024 18:51-0400 Body weight 63 kg Connor Pendlebury CUTTER IN.PROCESS DESCRIPTION WRITER Work Phone: [facility] 07-15-2024 18:51-0400 Heart rate 79 /min Connor Pendlebury CUTTER IN.PROCESS DESCRIPTION WRITER Work Phone: [facility] 07-15-2024 18:51-0400 Respiratory rate 18 /min Connor Pendlebury CUTTER IN.PROCESS DESCRIPTION WRITER Work Phone: [facility] 07-15-2024 18:51-0400 SaO2% (BldA) [Mass fraction] 98 % Connor Pendlebury CUTTER IN.PROCESS DESCRIPTION WRITER Work Phone: [facility] 10-01-2023 09:42-0500 Body temperature 97.4 [degF] [facility] Work Phone: [facility] 10-01-2023 09:42-0500 Diastolic blood pressure 49 mm[Hg] [facility] Work Phone: [facility] 10-01-2023 09:42-0500 Heart rate 75 /min [facility] Work Phone: [facility] 10-01-2023 09:42-0500 Respiratory rate 16 /min [facility] Work Phone: [facility] 10-01-2023 09:42-0500 SaO2% (BldA) [Mass fraction] 97 % [facility] Work Phone: [facility] 10-01-2023 09:42-0500 Systolic blood pressure 112 mm[Hg] [facility] Work Phone: 0([phone])110-799904 [place] [address] 10-01-2023 08:01-0500 Body height 154.94 cm [facility] Work Phone: 0(704)783-667004 [place] [address] 10-01-2023 08:01-0500 Body mass index (BMI) [Ratio] 25.8 kg/m2 [facility] Work Phone: 5([phone])808-196104 [place] [address] 10-01-2023 08:01-0500 Body weight 62 kg [facility] Work Phone: 8(633)165-224204 [place] [address] 08-16-2023 14:40-0400 Body mass index (BMI) [Ratio] 25.9 kg/m2 [facility] Work Phone: 1(206)214-582404 [place] [address] 08-16-2023 14:40-0400 Body temperature 97.1 [degF] [facility] Work Phone: 9(622)098-832504 [place] [address] 08-16-2023 14:40-0400 Body weight 62.36 kg [facility] Work Phone: 7(531)217-963604 [place] [address] 08-16-2023 14:40-0400 Diastolic blood pressure 71 mm[Hg] [facility] Work Phone: 8(138)683-373304 [place] [address] 08-16-2023 14:40-0400 Heart rate 67 /min [facility] Work Phone: 2([phone])403-844604 [place] [address] 08-16-2023 14:40-0400 Respiratory rate 17 /min [facility] Work Phone: 5(824)[phone] [place] [address] 08-16-2023 14:40-0400 SaO2% (BldA) [Mass fraction] 95 % [facility] Work Phone: 6(893)174-830704 [place] [address] 08-16-2023 14:40-0400 Systolic blood pressure 120 mm[Hg] [facility] Work Phone: 4(051)131-760904 [place] [address] Encounters Encounter Date Encounter Type Care Provider Facility Start: 04-07-2025 End: 04-07-2025 ambulatory [facility] Work Phone: [phone] [address] Work Phone: Start: 04-07-2025 End: 04-07-2025 Patient encounter procedure Laura SAHU -[facility] Work Phone: Start: 03-04-2025 Non-patient / Non-visit Dr. Carmelo ewing MD -[facility] Start: 03-04-2025 End: 03-04-2025 ambulatory [facility] Work Phone: [facility] Work Phone: Start: 03-04-2025 End: 03-04-[address] Dami Bynum MD -[facility] Work Phone: Start: 03-04-2025 End: 03-04-2025 ambulatory Dami Bynum Facility:[facility] Start: 02-13-2025 End: 02-13-[address] Dami Bynum MD -[facility] Work Phone: Start: 02-13-2025 End: 02-13-2025 ambulatory [facility] Facility:[facility] Start: 12-23-2024 End: 12-23-2024 [facility] Work Phone: [facility] Work Phone: Start: 12-23-2024 End: 12-23-2024 Patient encounter procedure [facility] Delaney MANDELC -Laboratory, [facility] Start: 12-23-2024 End: 12-23-2024 ambulatory [facility] Facility:[facility] Start: 11-20-2024 End: 11-20-2024 ambulatory ARI MENDEZ Facility:[facility] Start: 11-20-2024 End: 11-20-2024 Office outpatient visit 25 minutes Connor He APRN.CNP Work Phone: [facility] Comment on above: Sinobronchitis (Prim peña Dx) Start: 08-07-2024 End: 08-07-2024 ambulatory [facility] Facility:[facility] Start: 07-15-2024 End: 07-15-2024 [facility] Comment on above: Pain of left upper e xtremity [M79.602] Start: 07-15-2024 End: 07-15-2024 ambulatory ABI ABARCA Facility:[facility] Start: 07-15-2024 End: 07-15-2024 Office outpatient visit 15 minutes Connor He APRN.CNP Work Phone: [facility] Comment on above: Pain of left upper e xtremity (Primary Dx) Start: 01-14-2024 End: 01-14-2024 ambulatory [facility] Work Phone: [facility] Work Phone: Start: 01-14-2024 End: 01-14-2024 Patient encounter procedure [facility] Work Phone: [facility]atory, [facility] Start: 10-01-2023 Non-patient / Non-visit [facility] Work Phone: [facility] Start: 10-01-2023 End: 10-01-2023 Admission to same day surgery center [facility] Work Phone: [facility]-Endoscopy Work Phone: Start: 10-01-2023 End: 10-01-2023 ambulatory [facility] Work Phone: [facility] Work Phone: Start: 08-16-2023 End: 08-16-2023 Patient encounter procedure [facility] Work Phone: [facility] Work Phone: Start: 10-04-2022 End: 10-04-2022 ambulatory [facility] Work Phone: Start: 10-04-2022 End: 10-04-2022 Patient encounter procedure [facility]Labor[facility] Start: 06-16-2020 Patient encounter status [facility] Procedures Date Procedure Procedure Detail Performing Clinician Start: 02-13-2025 Evaluation of diagno stic study results [facility] Work Phone: Start: 07-15-2024 Radex forearm 2 views J bridgette Hnieskiara CUTTER IN.PROCESS DESCRIPTION WRITER Work Phone: Start: 10-01-2023 Colonoscopy [facility] Work Phone: Start: 10-21-2016 History of placement of stent for coronary artery disease History of coronary artery stent placement Comment on above: 2.5 x 28 mm Xience s tent overlapped with a 2.5 x 8 mm Xience stent to dRCA 10/21/16 Plan of Treatment Date Care Activity Detail Author Start: 2029 RSV Vaccine (1 - 1-dose 75+ series) RSV Vaccine (1 - 1-dose 75+ series) [facility] Start: 08-01-2026 Diabetes Screening Diabetes Screening [facility] Start: 10-29-2024 Advance Directive Discussion Advance Directive Discussion [facility] Start: 06-29-2024 Covid-19 Vaccine ( season) Covid-19 Vaccine ( season) [facility] Start: 06-29-2024 Covid-19 Vaccine ( season) Covid-19 Vaccine ( season) [facility] Start: 06-29-2024 Influenza vaccination Influenza Vaccine (#1) [facility] Start: 10-29-2023 Advance Directive Discussion Advance Directive Discussion [facility] Start: 10-01-2023 Colonoscopy w/biopsy single/multiple COLONOSCOPY AND BIOPSY [facility] Start: 10-01-2023 Patient discharge [facility] Start: 2019 Pneumococcal Vaccine: 65+ (1 of 1 - PCV) Pneumococcal Vaccine: 65+ (1 of 1 - PCV) [facility] Start: 2019 Screening for osteoporosis Bone Density Screening [facility] Start: 2014 RSV Vaccine (1 - 1-dose 60+ series) RSV Vaccine (1 - 1-dose 60+ series) [facility] Start: 2004 Pneumococcal Vaccine: 50+ (1 of 1 - PCV) Pneumococcal Vaccine: 50+ (1 of 1 - PCV) [facility] Start: 2004 Shingrix Vaccine (1 of 2) Shingrix Vaccine (1 of 2) [facility] Start: 1999 Lipid panel Lipid Screening [facility] Start: 1999 Screening for malignant neoplasm of colon [facility] Start: 1994 Screening for malignant neoplasm of breast Mammogram Screening [facility] Start: 1973 Urine microalbumin profile DTaP,Tdap,Td Vaccine (1 - Tdap) [facility] Start: 1972 Anxiety Screening Anxiety Screening [facility] Start: 1972 Depression Screening Depression Screening [facility] Start: 1972 Hepatitis C screening Hepatitis C Screening [facility] Basic metabolic 2008 panel with ionized calcium - Serum or Plasma [facility] Colonoscopy [facility] Patient referral [facility] Work Phone: Payers Date Payer Category Payer Self-pay [id number] 2019 Unknown [facility] MEDICARE ADVANTAGE HMO [id number] 2019-Present [phone] [address] [place] [address] O [id number] 2019 Unknown [id number] Medicare ANTHEM MEDICARE PPO [id number] Medicare MEDICARE PART A B [id number] Unknown [id number] Unknown [id number] Unknown [id number] Unknown [id number] Unknown [id number] Social History Date Type Detail Facility Start: 05-10-2022 End: 10-01-2023 Tobacco smoking status MDIS Unknown if ever smoked [facility] Start: 1955 Sex Assigned At Female [facility] Start: 07-15-2024 Tobacco smoking status NHIS Ex-smoker [facility] History of tobacco use Current smoker [facility] History of tobacco use Cigarette Smoker [facility] Start: 07-15-2024 Tobacco use and exposure Smokeless tobacco non-user [facility] Start: 2020 End: 07-15-2024 History of Social function [facility] Start: 2020 End: 07-15-2024 Tobacco use panel [facility] National Score (1-100), lower number is lower risk Not on file [facility] Start: 1955 Sex assigned at Not on file [facility] Start: 10-01-2023 Tobacco smoking status NHIS Smokes tobacco daily (finding) [facility] Start: 01-06-2025 Sex Female (finding) [facility] Start: 04-07-2025 Tobacco smoking status MDIS Current Heavy tobacco smoker [facility] NEGATED: Highlighted row [facility] Medical Equipment Procedure Code Equipment Code Equipment Origin al Text Equipment Identifier Dates Xience Alpine Coronary stent x 2 FDA Start: 10-21-2016 Xience Alpine Coronary stent x 2 FDA Start: 10-21-2016 Xience Alpine Coronary stent x 2 FDA Start: 10-21-2016 Xience Alpine Coronary stent x 2 FDA Start: 10-21-2016 Xience Alpine Coronary stent x 2 FDA Start: 10-21-2016 Xience Alpine Coronary stent x 2 FDA Start: 10-21-2016 Xience Alpine Coronary stent x 2 FDA Start: 10-21-2016 Xience Alpine Coronary stent x 2 FDA Start: 10-21-2016 Xience Alpine Coronary stent x 2 FDA Start: 10-21-2016 Xience Alpine Coronary stent x 2 FDA Start: 10-21-2016 Xience Alpine Coronary stent x 2 FDA Start: 10-21-2016 Xience Alpine Coronary stent x 2 FDA Start: 10-21-2016 Goals Date Patient Goal Desired Activity /State Mental Status Date Assessment Result Facility 10-01-2023 Cognitive function Level Of Consciousness Sedated [facility] Work Phone: 10-01-2023 Cognitive function Voice/Name [facility] Work Phone: Clinical Notes 10-01-2023 to 02-13-2025 Note Date & Type Note Facility 02-13-2025 Evaluation note Diagnosis Onset Date Resolution Peripheral arterial occlusive disease acute February 13 2:16pm Atherosclerosis of coronary artery of zuni heart without angina pectoris chronic February 13, 2025 2:16pm Essential hypertension chronic Ap 2024 2:16pm Hyperlipidemia chronic January 2:16pm [facility] Work Phone: 1([phone]) 838-622601-23-2025 NoteHNO ID: [id number] Author: CONNOR HE APRN.PROCESS DESCRIPTION WRITER Service: ? Author Type: Nurse Practitioner Type: Progress Notes Filed: 11/20/2024 12:02 Note Text: Subjective HPI Nontoxic-appearing female presents urgent care chief complaint cough chest congestion. Duration of symptoms 2 and half weeks. Associated symptoms sinus pressure cough chest congestion. States cough is productive in the morning. OTC medication little no success. No pain. Denies any fevers chest pain or hemoptysis. Past medical history prescription medications allergies reviewed. .Patient presents with: Cough: Chest congestion, sore throat x 2.5 weeks History reviewed. No pertinent past medical history. History reviewed. No pertinent surgical history. ALLERGIES Patient has no known allergies. MEDICATIONS clopidogrel (PLAVIX) 75 mg tablet Take 75 mg by mouth once daily. lisinopril (ZESTRIL) 20 mg tablet Take 20 mg by mouth once daily. metoprolol succinate ER (TOPROL XL) 100 mg Take 100 mg by mouth once daily. sertraline (ZOLOFT) 100 mg tablet Take 100 mg by mouth once daily. atorvastatin (LIPITOR) 80 mg tablet Take 80 mg by mouth once daily. History reviewed. No pertinent family history. Social History Tobacco Use Smoking status: Former Types: Cigarettes Smokeless tobacco: Never Vaping Use Vaping status: current everyday user Substances: Nicotine BP 160/102 Pulse 92 Temp 36.7 ?C (98 ?F) Resp 20 Wt 63.9 kg (140 lb 14 oz) SpO2 98% Review of Systems Constitutional: Negative for chills, fever and malaise/fatigue. HENT: Positive for congestion, sinus pain and sore throat. Negative for ear discharge and ear pain. Eyes: Negative for blurred vision, pain, discharge and redness. Respiratory: Positive for cough and sputum production. Negative for hemoptysis, shortness of breath, wheezing and stridor. Cardiovascular: Negative for chest pain. Gastrointestinal: Negative for abdominal pain, diarrhea, nausea and vomiting. Musculoskeletal: Negative for myalgias. Skin: Negative for itching and rash. Neurological: Negative for dizziness and headaches. Objective Physical Exam Constitutional: General: She is not in acute distress. Appearance: She is not diaphoretic. HENT: Head: Normocephalic. Jaw: No trismus, tenderness, swelling or pain on movement. Nose: Congestion present. Right Sinus: Maxillary sinus tenderness present. Left Sinus: Maxillary sinus tenderness present. Mouth/Throat: Mouth: Mucous membranes are moist. Pharynx: Oropharynx is clear. Uvula midline. No pharyngeal swelling, oropharyngeal exudate, posterior oropharyngeal erythema or uvula swelling. Eyes: Conjunctiva/sclera: Conjunctivae normal. Pupils: Pupils are equal, round, and reactive to light. Cardiovascular: Rate and Rhythm: Normal rate and regular rhythm. Heart sounds: Normal heart sounds. Pulmonary: Effort: Pulmonary effort is normal. No tachypnea, accessory muscle usage or respiratory distress. Breath sounds: Normal breath sounds. No stridor. No wheezing, rhonchi or rales. Abdominal: General: There is no distension. Palpations: Abdomen is soft. Tenderness: There is no abdominal tenderness. There is no guarding or rebound. Musculoskeletal: Cervical back: Normal range of motion and neck supple. No edema, erythema, rigidity or tenderness. No pain with movement. Normal range of motion. Lymphadenopathy: Cervical: No cervical adenopathy. Skin: General: Skin is warm and dry. Neurological: Mental Status: She is alert and oriented to person, place, and time. ASSESSMENT/PLAN: 1. Sinobronchitis - ICD9: 473.9, 490, ICD10: J32.9, J40 Diagnosed sinobronchitis. Placed on doxycycline. Chest x-ray offered. Declined at this visit. Will follow-up with PCP on Sunday if symptoms are not improving. Patient was educated on supportive therapies. Patient will follow up with primary care provider as needed. Patient was instructed to immediately proceed to emergency room for any new, worsening, or symptoms lasting longer than anticipated. The patient's clinical presentation is otherwise unremarkable at this time. Based on exam and clinical finding, the patient is stable for discharge. Plan of care was discussed with patient. Patient verbalizes understanding and agrees to plan of care. This note was generated using Kyp software. It may contain errors in wording, punctuation, or spelling. Connor He APRN.[facility]01-23-2025 History of Present illness Narrative* Connor He APRN.LILIYA - 11/20/2024 11:48 AM EST Subjective HPI Nontoxic-appearing female presents urgent care chief complaint cough chest congestion. Duration of symptoms 2 and half weeks. Associated symptoms sinus pressure cough chest congestion. States cough is productive in the morning. OTC medication little no success. No pain. Denies any fevers chest painor hemoptysis. Past medical history prescription medications allergies reviewed. .Patient presents with: Cough: Chest congestion, sore throat x 2.5 weeks History reviewed. No pertinent past medical history. History reviewed. No pertinent surgical history. ALLERGIES Patient has no known allergies. MEDICATIONS clopidogrel (PLAVIX) 75 mg tablet Take 75 mg by mouth once daily. lisinopril (ZESTRIL) 20 mg tablet Take 20 mg by mouth once daily. metoprolol succinate ER (TOPROL XL) 100 mg Take 100 mg by mouth once daily. sertraline (ZOLOFT) 100 mg tablet Take 100 mg by mouth once daily. atorvastatin (LIPITOR) 80 mg tablet Take 80 mg by mouth once daily. History reviewed. No pertinent family history. Social History Tobacco Use Smoking status: Former Types: Cigarettes Smokeless tobacco: Never Vaping Use Vaping status: current everyday user Substances: Nicotine BP 160/102 Pulse 92 Temp 36.7 C (98 F) Resp 20 Wt 63.9 kg (140 lb 14 oz) SpO2 98% Review of Systems Constitutional: Negative for chills, fever and malaise/fatigue. HENT: Positive for congestion, sinus pain and sore throat. Negative for ear discharge and ear pain. Eyes: Negative for blurred vision, pain, discharge and redness. Respiratory: Positive for cough and sputum production. Negative for hemoptysis, shortness of breath, wheezing and stridor. Cardiovascular: Negative for chest pain. Gastrointestinal: Negative for abdominal pain, diarrhea, nausea and vomiting. Musculoskeletal: Negative for myalgias. Skin: Negative for itching and rash. Neurological: Negative for dizziness and headaches. Objective Physical Exam Constitutional: General: She is not in acute distress. Appearance: She is not diaphoretic. HENT: Head: Normocephalic. Jaw: No trismus, tenderness, swelling or pain on movement. Nose: Congestion present. Right Sinus: Maxillary sinus tenderness present. Left Sinus: Maxillary sinus tenderness present. Mouth/Throat: Mouth: Mucous membranes are moist. Pharynx: Oropharynx is clear. Uvula midline. No pharyngeal swelling, oropharyngeal exudate, posterior oropharyngeal erythema or uvula swelling. Eyes: Conjunctiva/sclera: Conjunctivae normal. Pupils: Pupils are equal, round, and reactive to light. Cardiovascular: Rate and Rhythm: Normal rate and regular rhythm. Heart sounds: Normal heart sounds. Pulmonary: Effort: Pulmonary effort is normal. No tachypnea, accessory muscle usage or respiratory distress. Breath sounds: Normal breath sounds. No stridor. No wheezing, rhonchi or rales. Abdominal: General: There is no distension. Palpations: Abdomen is soft. Tenderness: There is no abdominal tenderness. There is no guarding or rebound. Musculoskeletal: Cervical back: Normal range of motion and neck supple. No edema, erythema, rigidity or tenderness. No pain with movement. Normal range of motion. Lymphadenopathy: Cervical: No cervical adenopathy. Skin: General: Skin is warm and dry. Neurological: Mental Status: She is alert and oriented to person, place, and time. ASSESSMENT/PLAN: 1. Sinobronchitis - ICD9: 473.9, 490, ICD10: J32.9, J40 Diagnosed sinobronchitis. Placed on doxycycline. Chest x-ray offered. Declined at this visit. Will follow-up with PCP on Sunday if symptoms are not improving. Patient was educated on supportive therapies. Patient will follow up with primary care provider as needed. Patient was instructed to immediately proceed to emergency room for any new, worsening, or symptoms lasting longer than anticipated. The patient's clinical presentation is otherwise unremarkable at this time. Based on exam and clinical finding, the patient is stable for discharge. Plan of care was discussed with patient. Patient verbalizes understanding and agrees to plan of care. This note was generated using Kyp software. It may contain errors in wording, punctuation, or spelling. Connor He APRN.LILIYA documented [facility] History of Present illness Narrative* Julia Worrell RT(R) - 07/15/2024 7:10 PM EDT Radiology Service Progress Note PATIENT NAME: Laine Marcial DATE OF SERVICE: July 15, 2024 TIME: 7:03 PM PATIENT IDENTITY VERIFICATION COMPLETED USING TWO (2) IDENTIFIERS: Name and Date of confirmedby patient verbally. FALL SCREENING: Has the patient had 2 falls in the last year or 1 fall with injury or currently using an Ambulatory Assistive Device (Walker, Cane, Wheelchair, Crutches, etc.)? No PATIENT GENDER DATA: Female. status: : No status: NO. PATIENT RELEVANT IMPLANT DATA REVIEWED: Yes PATIENT PRESENTS WITH AN IMPLANTABLE OR ATTACHED COMPREHENSIVE OPHTHALMOLOGIST: No RADIOLOGY DEPARTMENT: General X-ray: Exam(s) Completed: Upper Extremity X- Ray(s): Forearm, left andWrist, left PERIPHERAL IV DATA: Not applicable SIGNED BY: KATHRYN Emmanuel) July 15, 2024 7:03 PM documented in this [facility] NoteHNO ID: [id number] Author: JULIA WORRELL RT(R) Service: Radiology Author Type: Technologist Type: Progress Notes Filed: 07/15/2024 19:13 Note Text: Radiology Service Progress Note PATIENT NAME: Laine Marcial DATE OF SERVICE: July 15, 2024 TIME: 7:03 PM PATIENT IDENTITY VERIFICATION COMPLETED USING TWO (2) IDENTIFIERS: Name and Date of confirmed by patient verbally. FALL SCREENING: Has the patient had 2 falls in the last year or 1 fall with injury or currently using an Ambulatory Assistive Device (Walker, Cane, Wheelchair, Crutches, etc.)? No PATIENT GENDER DATA: Female. status: : No status: NO. PATIENT RELEVANT IMPLANT DATA REVIEWED: Yes PATIENT PRESENTS WITH AN IMPLANTABLE OR ATTACHED COMPREHENSIVE OPHTHALMOLOGIST: No RADIOLOGY DEPARTMENT: General X-ray: Exam(s) Completed: Upper Extremity X-Ray(s): Forearm, left and Wrist, left PERIPHERAL IV DATA: Not applicable SIGNED BY: RT Lien(R) July 15, 2024 7:03 [facility]09-17-2024 NoteHNO ID: [id number] Author: CONNOR HE APRN.PROCESS DESCRIPTION WRITER Service: ? Author Type: Nurse Practitioner Type: Progress Notes Filed: 07/15/2024 19:49 Note Text: Subjective HPI Nontoxic-appearing female presents urgent care accompanied by family member. Chief complaint fall. Duration of symptoms today. States fell earlier today. Tripped over a fence. Landed on outstretched hand. Landed on left arm. Presents today with wrist and forearm discomfort. Denies any other injuries. No head neck or back pain. No LOC. No nausea vomiting visual changes headaches or dizziness. Denies surgeries or fractures to this hand in the past. [id number]. Past medical history prescription medications allergies reviewed. .Patient presents with: Fall: Pt fell today this afternoon outside of her home, attmepted to stop herself and fell onto her L arm. Pain radiates up to elbow and hand is numb History reviewed. No pertinent past medical history. History reviewed. No pertinent surgical history. ALLERGIES Patient has no known allergies. MEDICATIONS clopidogrel (PLAVIX) 75 mg tablet Take 75 mg by mouth once daily. lisinopril (ZESTRIL) 20 mg tablet Take 20 mg by mouth once daily. metoprolol succinate ER (TOPROL XL) 100 mg Take 100 mg by mouth once daily. sertraline (ZOLOFT) 100 mg tablet Take 100 mg by mouth once daily. atorvastatin (LIPITOR) 80 mg tablet Take 80 mg by mouth once daily. History reviewed. No pertinent family history. Social History Tobacco Use Smoking status: Former Types: Cigarettes Smokeless tobacco: Never Vaping Use Vaping status: current everyday user Substances: Nicotine BP 182/72 Pulse 79 Temp 37 ?C (98.6 ?F) Resp 18 Wt 63 kg (138 lb 14.2 oz) SpO2 98% Review of Systems Constitutional: Negative for chills, fever and malaise/fatigue. HENT: Negative for congestion, ear discharge, ear pain, sinus pain and sore throat. Eyes: Negative for blurred vision, pain, discharge and redness. Respiratory: Negative for cough, hemoptysis, sputum production, shortness of breath, wheezing and stridor. Cardiovascular: Negative for chest pain. Gastrointestinal: Negative for abdominal pain, diarrhea, nausea and vomiting. Musculoskeletal: Positive for falls and joint pain. Negative for back pain, myalgias and neck pain. Skin: Negative for itching and rash. Neurological: Negative for dizziness and headaches. Objective Physical Exam Constitutional: General: She is not in acute distress. Appearance: She is not toxic-appearing. HENT: Head: Normocephalic. Nose: Nose normal. Eyes: Pupils: Pupils are equal, round, and reactive to light. Cardiovascular: Rate and Rhythm: Normal rate. Pulmonary: Effort: Pulmonary effort is normal. No respiratory distress. Musculoskeletal: Left upper arm: Normal. Left elbow: No swelling, deformity, effusion or lacerations. Normal range of motion. No tenderness. Left forearm: Tenderness and bony tenderness present. No swelling, edema, deformity or lacerations. Left wrist: Tenderness, bony tenderness and snuff box tenderness present. No swelling, deformity, effusion or lacerations. Normal range of motion. Normal pulse. Left hand: No swelling, deformity, lacerations, tenderness or bony tenderness. Normal range of motion. Normal strength. Normal sensation. Normal capillary refill. Normal pulse. Arms: Cervical back: Normal range of motion. Comments: Pain with palpation highlighted area. No erythema noted. No breaks in the skin. Neurovascular intact. Full range of motion. Skin: General: Skin is warm and dry. Neurological: General: No focal deficit present. Mental Status: She is alert. ASSESSMENT/PLAN: 1. Pain of left upper extremity - ICD9: 729.5, ICD10: M79.602 - XR WRIST INJURY 4V PA/LAT/OBL/SCAPH LEFT - XR FOREARM GENERAL 2V AP/LAT LEFT IMPRESSION: No acute abnormality. IMPRESSION: No acute abnormality. No acute abnormal findings noted on x-ray. Treat as wrist sprain. Placed in a cock up splint. Patient was educated on supportive therapies. Patient will follow up with primary care provider 7 to 10 days. Patient was instructed to immediately proceed to emergency room for any new, worsening, or symptoms lasting longer than anticipated. The patient's clinical presentation is otherwise unremarkable at this time. Based on exam and clinical finding, the patient is stable for discharge. Plan of care was discussed with patient. Patient verbalizes understanding and agrees to plan of care. This note was generated using Kyp software. It may contain errors in wording, punctuation, or spelling. Connor He APRN.[facility]09-17-2024 History of Present illness Narrative* Connor He APRN.PROCESS DESCRIPTION WRITER - 07/15/2024 7:03 PM EDT Images from the original note were not included. Subjective HPI Nontoxic-appearing female presents urgent care accompanied by family member. Chief complaint fall. Duration of symptoms today. States fell earlier today. Tripped over a fence. Landed on outstretched hand. Landed on left arm. Presents today with wrist and forearm discomfort. Denies any other injuries. No head neck or back pain. No LOC. No nausea vomiting visual changes headaches or dizziness. Denies surgeries or fractures to this hand in the past. [id number]. Past medical history prescription medications allergies reviewed. .Patient presents with: Fall: Pt fell today this afternoon outside of her home, attmepted to stop herself and fell onto herL arm. Pain radiates up to elbow and hand is numb History reviewed. No pertinent past medical history. History reviewed. No pertinent surgical history. ALLERGIES Patient has no known allergies. MEDICATIONS clopidogrel (PLAVIX) 75 mg tablet Take 75 mg by mouth once daily. lisinopril (ZESTRIL) 20 mg tablet Take 20 mg by mouth once daily. metoprolol succinate ER (TOPROL XL) 100 mg Take 100 mg by mouth once daily. sertraline (ZOLOFT) 100 mg tablet Take 100 mg by mouth once daily. atorvastatin (LIPITOR) 80 mg tablet Take 80 mg by mouth once daily. History reviewed. No pertinent family history. Social History Tobacco Use Smoking status: Former Types: Cigarettes Smokeless tobacco: Never Vaping Use Vaping status: current everyday user Substances: Nicotine BP 182/72 Pulse 79 Temp 37 C (98.6 F) Resp 18 Wt 63 kg (138 lb 14.2 oz) SpO2 98% Review of Systems Constitutional: Negative for chills, fever and malaise/fatigue. HENT: Negative for congestion, ear discharge, ear pain, sinus pain and sore throat. Eyes: Negative for blurred vision, pain, discharge and redness. Respiratory: Negative for cough, hemoptysis, sputum production, shortness of breath, wheezing and stridor. Cardiovascular: Negative for chest pain. Gastrointestinal: Negative for abdominal pain, diarrhea, nausea and vomiting. Musculoskeletal: Positive for falls and joint pain. Negative for back pain, myalgias and neck pain. Skin: Negative for itching and rash. Neurological: Negative for dizziness and headaches. Objective Physical Exam Constitutional: General: She is not in acute distress. Appearance: She is not toxic-appearing. HENT: Head: Normocephalic. Nose: Nose normal. Eyes: Pupils: Pupils are equal, round, and reactive to light. Cardiovascular: Rate and Rhythm: Normal rate. Pulmonary: Effort: Pulmonary effort is normal. No respiratory distress. Musculoskeletal: Left upper arm: Normal. Left elbow: No swelling, deformity, effusion or lacerations. Normal range of motion. No tenderness. Left forearm: Tenderness and bony tenderness present. No swelling, edema, deformity or lacerations. Left wrist: Tenderness, bony tenderness and snuff box tenderness present. No swelling, deformity, effusion or lacerations. Normal range of motion. Normal pulse. Left hand: No swelling, deformity, lacerations, tenderness or bony tenderness. Normal range of motion. Normal strength. Normal sensation. Normal capillary refill. Normal pulse. Arms: Cervical back: Normal range of motion. Comments: Pain with palpation highlighted area. No erythema noted. No breaks in the skin. Neurovascular intact. Full range of motion. Skin: General: Skin is warm and dry. Neurological: General: No focal deficit present. Mental Status: She is alert. ASSESSMENT/PLAN: 1. Pain of left upper extremity - ICD9: 729.5, ICD10: M79.602 - XR WRIST INJURY 4V PA/LAT/OBL/SCAPH LEFT - XR FOREARM GENERAL 2V AP/LAT LEFT IMPRESSION: No acute abnormality. IMPRESSION: No acute abnormality. No acute abnormal findings noted on x-ray. Treat as wrist sprain. Placed in a cock up splint. Patient was educated on supportive therapies. Patient will follow up with primary care provider 7 to 10 days. Patient was instructed to immediately proceed to emergency room for any new, worsening, or symptoms lasting longer than anticipated. The patient's clinical presentation is otherwise unremarkable at this time. Based on exam and clinical finding, the patient is stable for discharge. Plan ofcare was discussed with patient. Patient verbalizes understanding and agrees to plan of care. This note was generated using Kyp software. It may contain errors in wording, punctuation, or spelling. Connor He APRN.PROCESS DESCRIPTION WRITER documented in this [facility]12-[facility]-2023 History and physical note Author Meghann Cano [facility] October 01, 2023 8:43am Note Date/Time October 01, 2023 8 :10am [facility] Medical Records Department [address] [place] [address] History & Physical Exam 10/01/23 0809 MR#: [id number] Acct: [id number] Name: LAINE LI Rep #:[id number] : 1955 67 From: Meghann Cano MD PCP: [facility] at:[facility] Location: [address] HPI - General General Date of Service: 10/01/23 HPI Narrative LAINE LI, is a 67 F who presents for screening colonoscopy. Patient states she is still taking MiraLAX daily and having bowel movement every 2 days. Otherwise denies any other changes since office visit. office visit 08/16/23 HPI HPI: 67-year-old female presents for colon cancer screening/possible IBS symptoms. Patient never had previous colonoscopy. Patient is unsure about her family history as they did not really talk about it and the mom may or may not have hadsurgery also remembers her mom saying that she did not want a bag but unsure if it could be diverticulitis or another reason other than colon cancer-but patientwas over 60 at that time. Patient states she had more issues during the summer would have a cycle of constipation and diarrhea. Currently has been better she does take some MiraLAX on occasion typically has a bowel movement every 2 days. Overall patient does not drink a lot of water drinks mostly pop. PFSH Medical History Atherosclerosis of coronary artery of zuni heart without angina pectoris Breast ptosis Cancer Cancer of left breast Capsular contracture of breast implant Cardiology follow-up encounter Deformity of reconstructed breast Diarrhea Disproportion of reconstructed breast Essential hypertension Former smoker Former smoker Gastric reflux History of breast cancer History of heart attack History of IBS History of pain when walking Hyperlipidemia Late effect of radiation NSTEMI (non-ST elevated myocardial infarction) (~09/2016) Pain of left breast Peripheral vascular disease Restless legs Shortness of breath on exertion Vapes nicotine containing substance Home Medications aspirin 81 mg tablet,delayed release (Adult Aspirin Regimen) 81 mg PO QHS 04/29/20 [History Last Taken 09/25/23] atorvastatin 80 mg tablet 80 mg PO QHS 04/29/20 [History Last Taken Unknown] clopidogrel 75 mg tablet 75 mg PO QHS 04/29/20 [History Last Taken 09/25/23] sertraline 100 mg tablet 100 mg PO QHS 04/29/20 [History Last Taken Unknown] pantoprazole 40 mg tablet,delayed release 40 mg PO QHS Heartburn 06/16/20 [History Last Taken Unknown] lisinopril 20 mg tablet 20 mg PO QHS 08/16/23 [History Last Taken Unknown] metoprolol tartrate 50 mg tablet 50 mg PO BID 08/16/23 [History Last Taken 10/01/23] Allergy/AdvReac Type Severity Reaction Status Date / Time No Known Allergies Allergy Verified 10/01/23 07:57 Family History Father Diabetes CVA (cerebral vascular accident) Alzheimer's disease Mother Diabetes Heart disease Hypertension Myocardial infarction Brother Diabetes Myocardial infarction Brother Hypertension Sister Diabetes Surgical History History of appendectomy History of breast implant History of breast implant removal History of cholecystectomy History of coronary artery stent placement (10/21/16) History of left breast biopsy (~06/2020) History of lumpectomy of left breast History of partial hysterectomy History of tonsillectomy S/P percutaneous transluminal angioplasty ([employer]) with stent placement Social History Smoking Status: Current every day smoker tobacco type: cigarettes and e- cigarettes Electronic Cigarette Use: with nicotine alcohol intake: never substance use type: does not use caffeine: Yes Type: carbonated beverages Number of servings: 2 and coffee additional social history: DOES TAKE ASPIRIN DOES TAKE IBUPROFEN Past Medical/Surgical History Planned Operation Planned Operative Procedure/s: CSCOPE Previous Hospitalizations/Surgeries HX Hospitalizations: No Any Problems With Anesthesia: No You/Your Family Experience Fever (Hyperthermia) With Anes: No Cholinesterase deficiency: No Cardiovascular Hx Hypertension: Yes (CONTROLLED WITH MEDS) Respiratory Hx Sleep Apnea: No Hx Respiratory Tract Infection/Cold (presently): No (HEAD COLD) Do You Snore Loudly (louder than talking or can be heard): Yes Do You Often Feel Tired/ Fatigued/ Sleepy Dring Daytime?: Yes Has Anyone Observed You Stop Breathing During Sleep?: No Result (for STOP score): Positive Smoking Status: Current every day smoker Neurological Does patient have nerve stimulator: No Reproduction : No Allergies No Known Allergies Allergy (Verified 10/01/23 07:57) Discharge Is Pt Admitted From a [facility], or a Longterm: No After D/C, Where Do you Plan to Go: Return Home Physical Exam Const alert, oriented x3 and no apparent distress HEENT normocephalic and head/scalp atraumatic Resp normal respiratory effort Cardio regular rate GI soft to palpation and non-tender; Negative for non-distended Palpation: Negative for guarding Extremity no clubbing, cyanosis or edema Skin no rashes or lesions noted Neuro CN's II-XII intact bilaterally Psych mental status grossly normal Assessment & Plan Assessment/Plan (1) Screening for colon cancer: Surgery Risks - Colonoscopy I discussed with the patient the risks of the procedure: Yes Risks Include but are not Limited To: Risks include but are not limited to: Bleeding, perforation requiring further surgery, inability to complete colonoscopy requiring barium enema. 10/01/23 0843 <Electronically signed by Meghann Cano MD> Cosigner Signature (if applicable): CC: Dr. Meghann Cano MD; [facility]~ Signed [facility] Work Phone: 1(356) 365-483912-04-2023 Procedure [facility] 10-01-2023 Procedure noteWKettering [facility] CenterEvaluation noteNo assessment information availableWKettering Health Behavioral Medical Center Work Phone: Evaluation note* Diagnosis Onset Date Resolution Status Constipation acute Screening for colon cancer a [facility] Screening for colon cancer a [facility] Work Phone: Evaluation note* Diagnosis Onset Date Resolution Status Screening for colon cancer a [facility] Work Phone: Evaluation note* Diagnosis Pain of left upper extremity- Primary Pain of left upper extremity [facility]* Diagnosis Pain of left upper extremity [facility]* Diagnosis Sinobronchitis- Primary Unspecified sinusitis (chronic) documented in this encounter [facility] for [facility] (narrative)* Diagnostic Procedure Only (Urgent) - Closed Specialty Diagnoses / Procedures Referred By Elisa myers Referred To Contact XR IMAGING Diagnoses Pain of left upper extremity Procedures XR FOREARM GENERAL 2V AP/LAT LEFT RADEX FOREARM 2 VIEWS Connor He APRN.CNP [address] [place] [address] [place] [address] Referral ID Status Reason Start Date Expiration Date V isits Requested Visits Authorized [id number] Closed Auto-Generate d Referral 07/15/2024 08/14/2025 1 1 * Diagnostic Procedure Only (Urgent) - Closed Specialty Diagnoses / Procedures Referred By Elisa t Referred To Contact XR IMAGING Diagnoses Pain of left upper extremity Procedures XR WRIST INJURY 4V PA/LAT/OBL/SCAPH LEFT RADEX WRIST COMPLETE MINIMUM 3 VIEWS Connor He APRN.CNP [address] [place] [address] [place] [address] Referral ID Status Reason Start Date Expiration Date V isits Requested Visits Authorized [id number] Closed Auto-Generate d Referral 07/15/2024 08/14/2025 1 1 [facility] for referral (narrative)* Diagnostic Procedure Only (Urgent) - Closed Specialty Diagnoses / Procedures Referred By Contac t Referred To Contact XR IMAGING Diagnoses Pain of left upper extremity Procedures XR FOREARM GENERAL 2V AP/LAT LEFT RADEX FOREARM 2 VIEWS Connor He APRN.PROCESS DESCRIPTION WRITER [address] [place] [address] [place] [address] Referral ID Status Reason Start Date Expiration Date V isits Requested Visits Authorized [id number] Closed Auto-Generate d Referral 07/15/2024 08/14/2025 1 1 * Diagnostic Procedure Only (Urgent) - Closed Specialty Diagnoses / Procedures Referred By Contac t Referred To Contact XR IMAGING Diagnoses Pain of left upper extremity Procedures XR WRIST INJURY 4V PA/LAT/OBL/SCAPH LEFT RADEX WRIST COMPLETE MINIMUM 3 VIEWS Connor He APRN.PROCESS DESCRIPTION WRITER [address] [place] [address] [place] [address] Referral ID Status Reason Start Date Expiration Date V isits Requested Visits Authorized [id number] Closed Auto-Generate d Referral 07/15/2024 08/14/2025 1 1 [facility] for referral (narrative)No reason for referral information availableWKettering Health Behavioral Medical Center Work Phone: Reason for visit Narrative* Diagnostic Procedure Only (Urgent) - Closed Specialty Diagnoses / Procedures Referred By Contac t Referred To Contact XR IMAGING Diagnoses Pain of left upper extremity Procedures XR FOREARM GENERAL 2V AP/LAT LEFT RADEX FOREARM 2 VIEWS Connor He APRN.PROCESS DESCRIPTION WRITER [address] [place] [address] [place] [address] Referral ID Status Reason Start Date Expiration Date V isits Requested Visits Authorized [id number] Closed Auto-Generate d Referral 07/15/2024 08/14/2025 1 1 [facility] Family History Relationship Condition Age at Onset Recorded Date/T haydee father Diabetes mellitus Unknown Cerebrovascular accident (CVA) Unknown Alzheimer's disease Unknown mother Diabetes mellitus Unknown Cardiac disease Unknown Hypertension Unknown Myocardial infarction Unknown brother Diabetes mellitus Unknown brother Hypertension Unknown sister Diabetes mellitus Unknown Advance Directives Advance Directive Response Recorded Date/ Time Living Will No September 30 1:59pm Power of Reproducer No September 30, 2021 1:59pm Advance Directive Response Recorded Date/ Time Living Will No September 27, 2 023 1:47pm Power of Reproducer No September 27, 2023 1:47pm Advance Directive Response Recorded Date/ Time Living Will No September 27, 2 023 2:47pm Power of Reproducer No September 27, 2023 2:47pm Chief Complaint and Reason for Visit Chief Complaint COLON CANCER SCREENI NG Reason for Visit Constipation Screening for colon cancer Screening for colon cancer Reason for Visit Screening for colon cancer Chief Complaint Admit Date CAD W/ RCA (KARLO) February 13, 2025 2 :16pm PVD, CLAUDICATION March 04, 2025 1:26pm Reason for Visit Admit Date Peripheral arterial occlusive disease Ap ril 2024 2:16pm Atherosclerosis of coronary artery of zuni heart without angina pectoris February 13, 2025 2:16pm Essential hypertension February 13, 2025 2:16pm Hyperlipidemia February 13, 2025 2:1 6pm Chief Complaint Admit Date CAD W/ RCA (KARLO) February 13, 2025 2 :16pm PVD, CLAUDICATION March 04, 2025 1:26pm LE studies April 07, 2025 9:43 am Summary Purpose Additional Source Comments Goals (unrecognized section and content) Goals may be documented in a n alternate sectionGoals may be documented in an alternate sectionGoals may be documented in an alternate sectionGoals may be documented in an alternate section Care Teams (unrecognized sec tion and content) Team Status: Active Member Role Status Dates [facility] Primary Care Provider A ctive Team Status: Inactive Member Role Status Dates [facility] Primary Care Provider, Referring Provider Active Dr. Meghann Cano MD Attending Provider Active Team Status: Active Member Role Status Dates [facility] Primary Care Provider, Referring Provider Active Dr. Meghann Cano MD Attending Provider, Other Pro vider Active Team Status: Inactive Member Role Status Dates [facility] Primary Care Provider A ctive Delaney Dietrich [address] RECORDER, ELECTRONIC COURT RECORDER-C Attending Provider, Referrin g Provider Active Floriculture Professor Relationship Specialty Start Date End Date Abi Abarca [address] [place] [address] PCP - General Family Medicine 10/27/20 Floriculture Professor Relationship Specialty Start Date End Date Abi Abarca Bryce [address] [place], [place] [id number] PCP - General Family Medicine 10/27/20 Floriculture Professor Relationship Specialty Start Date End Date MendezAri CNP [address] [place], [place] [id number] PCP - General Family Medicine 11/20/24 Team Status: Inactive Member Role Status Dates [facility] Primary Care Provider Active Start: December 232024 End: December 23, 2024 Delaney Dietrich VSC, ELECTRONIC COURT RECORDER-C Attending Provider Active Start: December 23, 2024 End: December 23, 2024 Delaney BECK, ELECTRONIC COURT RECORDER-C Referring Provider Active Start: December 23, 2024 End: December 23, 2024 Team Status: Inactive Member Role Status Dates [facility] Primary Care Provider A ctive Start: February 13, 2025 End: February 13, 2025 [facility] Referring Provider Acti ve Start: February 13, 2025 End: February 13, 2025 Dr. Dami Bynum MD Attending Provider Active Start: February 13, 2025 End: February 13, 2025 Team Status: Inactive Member Role Status Dates [facility] Primary Care Provider A ctive Start: March 04, 2025 End: March 04, 2025 Dr. Dami Bynum MD Attending Provider Active Start: March 04, 2025 End: March 04, 2025 Dr. Dami Bynum MD Referring Provider Active Start: March 04, 2025 End: March 04, 2025 Team Status: Active Member Role Status Dates [facility] Primary Care Provider A ctive Start: March 04, 2025 Dr. Carmelo Davies MD Attending Provider Active S tart: March 04, 2025 Dr. Dami Bynum MD Referring Provider Active Start: March 04, 2025 Team Status: Inactive Member Role Status Dates [facility] Primary Care Provider A ctive Start: April 07, 2025 End: April 07, 2025 ADELINA Fajardo Attending Provider Active Star t: April 07, 2025 End: April 07, 2025 Dr. Dami Bynum MD Referring Provider Active Start: April 07, 2025 End: April 07, 2025 Source Comments (unrecognize d section and content) In the event this informatio n is protected by the Federal Confidentiality of Alcohol and Drug Abuse Patient Records regulations: The Federal rules restrict any use of the information to criminally investigate or prosecute any alcohol or drug abuse patient.[facility] the event this information is protected by the Federal Confidentiality of Alcohol and Drug Abuse Patient Records regulations: The Federal rules restrict any use of the information to criminally investigate or prosecute any alcohol or drug abuse patient.[facility] the event this information is protected by the Federal Confidentiality of Alcohol and Drug Abuse Patient Records regulations: The Federal rules restrict any use of the information to criminally investigate or prosecute any alcohol or drug abuse patient.[facility] Reason for Visit (unrecogniz ed section and content) Reason Comments Fall Pt fell today this a fternoon outside of her home, attmepted to stop herself and fell onto her L arm. Pain radiates up to elbow and hand is numb Reason Comments Cough Chest congestion, so re throat x 2.5 weeks INFORMATION SOURCE (unrecogn ized section and content) DATE CREATED AUTHOR 11/22/2024 [facility] DATE CREATED AUTHOR AUTHOR'S ORGANIZ ATION 03/11/2025 [facility] FOR RECORDS PERTAINING TO PATIENTS WHO ARE OR HAVE BEEN ENROLLED IN A CHEMICAL DEPENDENCY/SUBSTANCEABUSE PROGRAM, SOME INFORMATION MAY BE OMITTED. This clinical summary was aggregated from multiple sources. Caution should be exercised in using it in the provision of clinical care. This summary normalizes information from multiple sources, and as a consequence, information in this document may materially change the coding, format and clinical context of patient data. In addition, data may be omitted in some cases. CLINICAL DECISIONS SHOULD BE BASED ON THE PRIMARY CLINICAL RECORDS. [employer] provides no warranty or guarantee of the accuracy or completeness of information in this document.
== END | disposition home or self-care (01) ==
PROVIDERS: Referring Provider Internal Medicine Cardiovascular Disease; Visit Provider Internal Medicine Cardiovascular Disease
DX: I10 Essential (primary) hypertension (principal)
CPT/HCPCS: 36415; 80048

== ENCOUNTER → 2025-06-03 | Outpatient (CLI) | payer MEDICARE, SELFPAY ==
[2025-06-03 15:55] LABS: Hematocrit 36.0 % (37-47); Hemoglobin 12.2 g/dL (12.0-15.0); Immature Granulocytes Count 0.010 X10^3/uL (0.0-0.0); Mean Corp Hgb Conc 33.9 g/dL (32-36); Mean Corpuscular Volume 93.0 fL (81-99); Mean Platelet Vol. 9.1 fl (6.2-12.0); NRBC Flagged by Analyzer 0 % (0-5); Platelet Count 282 K/mm3 (150-450); RBC Distribution Width CV 14.3 % (11.6-14.6); RBC Distribution Width SD 48.3 fl (35.1-43.9); Red Blood Count 3.87 M/mm3 (4.2-5.4); White Blood Count 5.6 K/mm3 (4.4-11.0)
[2025-06-03 16:08] LABS: AST(SGOT) 22 U/L (<=31); Alanine Aminotransfer ALT/SGPT 14 U/L (<=34); Albumin, Serum 4.4 g/dL (3.4-4.8); Alkaline Phosphatase 83 U/L (35-104); Bilirubin, Direct 0.12 mg/dL (0.00-0.30); Cholesterol 203 mg/dL (<=200); Globulin 2.9 g/dL (2.2-4.2); Low Density Lipoprotein Calc. 97 mg/dL; Pro- Brain NATRIURETIC PEPTIDE 258 pg/mL (<=900); Triglycerides 277 mg/dL; Very Low Density Lipoprotein 55 mg/dL (5-40); cholesterol:hdl ratio screen 3.98
== END | disposition home or self-care (01) ==
LOC: PAVLAB 15:33
PROVIDERS: Referring Provider Student in an Organized Health Care Education/Training Program; Visit Provider Student in an Organized Health Care Education/Training Program
DX: E78.00 Pure hypercholesterolemia, unspecified (principal); R06.02 Shortness of breath
CPT/HCPCS: 36415; 80061; 80076; 83880; 85025

== ENCOUNTER → 2025-09-22 | Outpatient (CLI) | payer MEDICARE, SELFPAY ==
--- OUTSIDE RECORDS SUMMARY | 2025-09-22 18:44 | XMS RPT_ITS | CCD ---
Author Organization [facility] Care Team Providers Care Guest Experience Manager Name Role Phone [facility], [place] Kellen Primary Care Pro vider [facility], [place] Kellen Referring Provid er Dr. Meghann Cano Attending Provider Dr. Meghann Cano Other Provider Davon Abarca Primary Care Provider Ari Mendez CNP Primary Care Provider [facility], Paoligenet Foreman Primary Care Pro vider Nya LEAD BLENDER-CDelaney Attending Provider Nya LEAD BLENDER-CDelaney Referring Provider [facility], [place] Foreman Referring Provid er Dr. Dami Bynum MD Attending Provider Dr. Dami Bynum MD Referring Provider Dr. Carmelo Davies MD Attending Provider [phone] Laura Perez Attending Provider [phone] [facility], [place] Foreman Primary Care Pro vider Alfie Enriquez Attending Provider [phone] RAI MENDEZ Primary Care Unavailable GARO HE Referring Unavailable DAVON ABARCA Primary Care Unavailable DAVON ABARCA Primary Care Unavailable ALICJA ODOM Attending Unavailable ARI MENDEZ Primary Care Unavailable ARI MENDEZ Primary Care Unavailable ALICJA ODOM Referring Unavailable Alfie Enriquez Referring Provider Dami Bynum Attending Unavailable [facility], [place] Foreman Primary Care Unavailable [facility], [place] Foreman Referring Unavailable Dami Bynum Referring Unavailable [facility], [facility] Primary Care Unavailable Carmelo Davies Attending Unavailable [facility], [facility] Primary Care Unavailable Laura Leggett Attending Unavailable Dami Bynum Referring Unavailable [facility] [place], [facility] Primary Care Unavailable [facility] [place] [facility] [place] Referring UnavailDami King Attending Unavailable Dami Bynum Referring Unavailable [facility], [facility] Primary Care Unavailable Dami Bynum Attending Unavailable [facility] [place], [facility] Primary Care Unavailable Dami Bynum Referring Unavailable Alfie Velez Referring Unavailable [facility] [place], [facility] Primary Care Unavailable Alfie Velez Attending Unavailable [facility] [place], [facility] Primary Care Unavailable [facility], Delaney [facility] [place] [facility] Alfie Velez Attending Unavailable [facility], [facility] Care Unavailable [facility] [place], [facility] Referring Unavailable Medications Current Medications Medication Drug Class(es) Dates Sig (Normalized) Sig (Original) aspirin 81 mg delayed release oral tablet (9 sources) Platelet Aggregation Inhibitor, Nonsteroidal Anti-inflammatory Drug Start: 04-29-2020 take 1 tablet by mouth at bedtime Aspirin (Adult Aspirin Regimen) 81 mg tablet,delayed release (DR/EC) Active 81 mg PO AT BEDTIME April 29, 2020 12:00am biotin 10 mg oral capsule (10 sources) Start: 06-16-2020 take 17638 ug by mouth at bedtime Biotin Active 62324 MCG PO AT BEDTIME June 16, 2020 1:13pm Start: 04-29-2020 End: 06-16-2020 Biotin 10,000 mcg capsule Di scontinued ug PO April 29, 2020 12:00am June 16, 2020 2:14pm Start: 04-29-2020 End: 06-16-2020 Biotin Discontinued MCG PO J 2019 12:00am June 16, 2020 2:14pm cholecalciferol 0.05 mg oral tablet (1 source) Vitamin D Start: 07-06-2022 take 1 tablet by mouth at bedtime Cholecalciferol (Vitamin D3) (Vitamin D3) 50 mcg (2,000 unit) Tablet Active 50 MCG PO AT BEDTIME July 05, 2022 11:00pm clopidogrel 75 mg oral tablet (12 sources) P2Y12 Platelet Inhibitor Start: 04-29-2020 take [...] 11/25/2024 Active hydroCHLOROthiazide 25 mg oral tablet (7 sources) Thiazide Diuretic Start: 02-13-2025 End: 06-03-2025 take 1 tablet by mouth once daily in the morning Hydrochlorothiazide 25 mg tablet Active 25 mg PO EVERY MORNING 90 June 03, 2025 3:23pm lisinopril 20 mg oral tablet (20 sources) Angiotensin Converting Enzyme Inhibitor Start: 08-16-2023 [...] succinate 100 mg extended release oral tablet (20 sources) beta-Adrenergic Candis Start: 01-29-2025 take 1 [...] pantoprazole 40 mg delayed release oral tablet (9 sources) Proton Pump Inhibitor Start: 06-16-2020 take 1 tablet by mouth at bedtime Pantoprazole 40 mg tablet,delayed release (DR/EC) Active 40 mg PO AT BEDTIME June 16, 2020 12:00am Heartburn rosuvastatin calcium 40 mg oral tablet (1 source) HMG-CoA Reductase Inhibitor Start: 06-05-2025 take 1 tablet by mouth once daily Rosuvastatin 40 mg tablet Active 40 mg PO daily June 05, 2025 12:00am sertraline 100 mg oral tablet (12 sources) Serotonin Reuptake Inhibitor Start: 04-29-2020 take 1 tablet by mouth at bedtime Sertraline 100 mg tablet Active 100 mg PO AT BEDTIME April 29, 2020 12:00am Completed/Discontinued Medications Medication Drug Class(es) Dates Sig (Normalized) Sig (Original) atorvastatin 80 mg oral tablet (12 sources) HMG-CoA Reductase Inhibitor Start: 04-29-2020 End: 06-05-2025 take 1 tablet by mouth at bedtime Atorvastatin 80 mg tablet Discontinued 80 mg PO AT BEDTIME April 29, 2020 12:00am June 05, 2025 4:38pm tiZANidine 2 mg oral capsule (5 sources) Central alpha-2 Adrenergic Agonist Start: 01-29-2025 End: 02-13-2025 take 1 capsule by mouth twice daily as needed Tizanidine 2 mg capsule Discontinued 2 mg PO TWICE A DAY as needed January 29, 2025 12:00am February 13, 2025 2:23pm Problems Active Problems Problem Classification Problem Date Documented Da te Episodic/Chronic Acute myocardial infarction (9 sources) Myocardial infarction; Translations: [Non-ST elevation (NSTEMI) myocardial infarction] Onset: 10-29-2015 06-28-2020 Chronic Comment on above: 2.5 x 28 mm Xience s tent overlapped with a 2.5 x 8 mm Xience stent to dRCA 10/21/16 Allergic reactions (9 sources) Disorder of soft tissue; Translations: [Other specified disorders of the skin and subcutaneous tissue related to radiation] 08-05-2020 Episodic Comment on above: left breast Cancer of breast (9 sources) Malignant tumor of breast ; Translations: [Malignant neoplasm of unspecified site of left female breast] 06-28-2020 Chronic Complication of device; implant or graft (9 sources) Capsular breast contracture of breast implant; Translations: [Capsular contracture of breast implant, initial encounter] 06-28-2020 Episodic Comment on above: left breast reconstr uction Coronary atherosclerosis and other heart disease (17 sources) Coronary atherosclerosis; Translations: [Atherosclerotic heart disease of [place] coronary artery without angina pectoris] Onset: 02-13-2025 06-28-2020 Chronic Comment on above: 2.5 x 28 mm Xience s tent overlapped with a 2.5 x 8 mm Xience stent to dRCA 10/21/16 Disorders of lipid metabolism (18 sources) Hyperlipidemia; Translations: [Hyperlipidemia, unspecified] Onset: 06-03-2025 06-28-2020 Chronic Essential hypertension (17 sources) Essential hypertension; Translations: [Essential (primary) hypertension] Onset: 04-14-2025 09-27-2023 Chronic Comment on above: CONTROLLED WITH MED Mood disorders (5 sources) Depressive disorder; Translations: [Depression] 01-29-2025 Chronic Nonmalignant breast conditions (20 sources) Mastodynia; Translations: [Pain of left breast] 06-28-2020 Episodic Comment on above: right breast reconst ruction left breast reconstr uction Other circulatory disease (13 sources) Peripheral arterial occlusive disease; Translations: [Disorder of arteries and arterioles, unspecified] 01-29-2025 Chronic Other circulatory disease (6 sources) History of cardiovascular surgery; Translations: [Peripheral vascular angioplasty status] 04-09-2025 Episodic Other connective tissue disease (2 sources) Pain in left arm; Translations: [Pain in left arm] 07-15-2024 Episodic Other gastrointestinal disorders (9 sources) Constipation; Translations: [Constipation, unspecified] 05-10-2022 Episodic Other gastrointestinal disorders (1 source) Constipation, unspecified; Translations: [Constipation, unspecified] 08-16-2023 Episodic Other injuries and conditions due to external causes (9 sources) Late effect of radiation; Translations: [Radiation sickness, unspecified, sequela] 06-28-2020 Episodic Comment on above: left breast Other injuries and conditions due to external causes (1 source) Unspecified injury of right ankle, initial encounter; Translations: [Injury of right ankle, initial encounter] Onset: 06-04-2025 Episodic Other lower respiratory disease (2 sources) Dyspnea on exertion; Translations: [Other forms of dyspnea] 06-03-2025 Episodic Other lower respiratory disease (1 source) Shortness of breath; Translations: [Shortness of breath] Onset: 06-03-2025 Episodic Other screening for suspected conditions (not mental disorders or infectious disease) (20 sources) Patient encounter status; Translations: [Encounter for screening for malignant neoplasm of colon] 05-10-2022 Episodic Other upper respiratory infections (1 source) Chronic sinusitis; Translations: [Chronic sinusitis, unspecified] 11-20-2024 Chronic Peripheral and visceral atherosclerosis (18 sources) Peripheral vascular disease; Translations: [Peripheral vascular disease, unspecified] Onset: 03-10-2025 06-28-2020 Chronic Residual codes; unclassified (9 sources) History of bilateral breast implants; Translations: [Breast implant status] 08-07-2020 Chronic Screening and history of mental health and substance abuse codes (9 sources) Ex-smoker; Translations: [Personal history of nicotine dependence] 06-28-2020 Episodic Comment on above: uses E-cigarettes Spondylosis; intervertebral disc disorders; other back problems (9 sources) Low back pain; Translations: [Low back [...] Test Name Value Interpretation Reference Range Facility [facility] 06-04-2025 CNOV Office Visit ([facility]) LAINE MARCIAL ([id number]) 1955 F Date Time Provider Department 06/04/25 11:15 ALICJA HYDE During your visit today, we recorded the following information about you: Temperature Pulse Respiration Blood pressure 98.1 degrees 73/minute 20/minute 132/63 Weight 61 kg Alicja Odom APRN.CNP 06/04/2025 1:04 PM Signed Subjective Laine Marcial is a 69 year old female. HPI Yesterday patient awkwardly stepped off of a curb inverting her right ankle. She complains of pain to the lateral aspect of the ankle but otherwise denies any other injuries or health concerns. Review of Systems As above Objective BP 132/63 Pulse 73 Temp 36.7 ?C (98.1 ?F) Resp 20 Wt 61 kg (134 lb 7.7 oz) SpO2 100% Physical Exam Vitals and nursing note reviewed. Constitutional: General: She is not in acute distress. Appearance: Normal appearance. She is not ill-appearing. HENT: Head: Normocephalic. Pulmonary: Effort: Pulmonary effort is normal. Musculoskeletal: Comments: Swelling to the lateral malleolus of the right ankle with no obvious deformities noted. Mild diffuse tenderness of the lateral malleolus Skin: General: Skin is warm. Neurological: General: No focal deficit present. Mental Status: She is alert and oriented to person, place, and time. Psychiatric: Mood and Affect: Mood normal. Behavior: Behavior normal. ASSESSMENT/PLAN: 1. Injury of right ankle, initial encounter - ICD9: 959.7, ICD10: S99.911A -X-ray of the ankle shows possible small avulsion fracture to the lateral malleolus consistent with a sprain of the ankle. Patient will use an [id number] ankle brace as needed for support and follow-up closely with PCP if symptoms not improving. - XR ANKLE GENERAL 3V AP/LAT/OBL RIGHT Alicja Odom APRN.CNP Allergies As of Date: 06/04/2025 (No Known Allergies) Date Reviewed: 06/04/2025 Reviewed by: Alicja Odom APRN.CNP - Fully Assessed Reason for Visit: Trauma [112] Cmt: Stepped off curb and missed same and rolled R ankle, swelling and bruising, LROM x 1 day Primary Visit Diagnosis:Injury of right ankle, initial encounter [S99.911A] Order(s):XR ANKLE GENERAL 3V AP/LAT/OBL RIGHT [[id number]] Order #: [id number] FUTURE Prescriptions as of 06/04/2025 - hydroCHLOROthiazide 25 mg tablet Take 25 mg by mouth once daily. - clopidogrel (PLAVIX) 75 mg tablet Take 75 mg by mouth once daily. - lisinopril (ZESTRIL) 20 mg tablet Take 20 mg by mouth once daily. - metoprolol succinate ER (TOPROL XL) 100 mg Take 100 mg by mouth once daily. - sertraline (ZOLOFT) 100 mg tablet Take 100 mg by mouth once daily. - atorvastatin (LIPITOR) 80 mg tablet Take 80 mg by mouth once daily. Problem List As Of Date: 06/04/2025 (None) Encounter Status:Closed by ALICJA ODOM on 06/04/25 Normal [facility] XR ANKLE 3V AP/LAT/OBL RTon 06-04-2025 XR ANKLE 3V AP/LAT/OBL RT * * *Final Report* * * DATE OF EXAM: Jun 04 2025 11:34AM WOX [id number] - XR ANKLE 3V AP/LAT/OBL RT / PROCEDURE REASON: Injury of right ankle, initial encounter * * * * Physician Interpretation * * * * EXAMINATION: XR ANKLE 3V AP/LAT/OBL RT HISTORY: Stepped off the curb yesterday and inverted her right ankle. Pain laterally. Injury of right ankle, initial encounter . TECHNIQUE: XR ANKLE 3V AP/LAT/OBL RT Laterality: RIGHT Number of different views (projections): 3 M: XB_1 COMPARISON: None RESULT: Small osseous fragment inferior to the lateral malleolus, likely tiny avulsion fracture fragment. Ankle mortise is maintained. Normal contour of the talar dome. Soft tissue swelling over the lateral ankle. IMPRESSION: Soft tissue swelling over the lateral ankle with tiny lateral malleolar avulsion fracture. Internet Site Designer: PSCB Transcribe Date/Time: Jun 04 2025 12:06P Dictated by : SAMARA MENDEZ MD This examination was interpreted and the report reviewed and electronically signed by: SAMARA MENDEZ MD on Jun 04 2025 12:08PM EST [id number] Normal [facility] Absolute lymphocyte countOrd ered By: Alfie Velez on 06-03-2025 Lymphocytes Auto (Unsp spec) [#/Vol] 1.86 10*3/uL 0.83-4.51 [facility] Absolute neutrophil countOrd ered By: Alfie Velez on 06-03-2025 Neutrophils (Bld) [#/Vol] 3.3 10*3/uL 2.0-7.7 [facility] Automated lymphocyte count a s percentage of total leukocytesOrdered By: Alfie Velez on 06-03-2025 Lymphocytes/100 WBC Auto (Unsp spec) 33.0 % 19-41 [facility] Basophil percentageOrdered B y: Alfie Velez on 06-03-2025 Basophils/100 WBC (Bld) 0.4 % 0-1 [facility] Bilirubin directOrdered By: Alfie Velez on 06-03-2025 Bilirubin.direct [Mass/Vol] 0.12 mg/dL 0.00-0.30 [facility] Bilirubin, totalOrdered By: Alfie Velez on 06-03-2025 Bilirubin [Mass/Vol] 0.24 mg/dL 0.00-1.30 [facility] CBC W/Diff, Automatedon Absolute Lymph 1.86 X10 3/uL Normal 0.83-4.51 [facility] Comment on above: Performed By: #### L 500.3400, L500.4100, L503.7505, L100.0100 ####[facility] [address] [place], [address] Absolute Neut 3.3 X10 3/uL Normal 2.0-7.7 [facility] Comment on above: Performed By: #### L 500.3400, L500.4100, L503.7505, L100.0100 ####[facility] [address] [place], [address] Basophils/100 WBC (Bld) 0.4 % Normal 0-1 [facility] Comment on above: Performed By: #### L 500.3400, L500.4100, L503.7505, L100.0100 ####[facility] [address] [place], [address] Eosinophils/100 WBC (Bld) 2.0 % Normal 0-5 [facility] Comment on above: Performed By: #### L 500.3400, L500.4100, L503.7505, L100.0100 ####[facility] [address] [place], [address] Erythrocyte distribution width (RBC) [Ratio] 14.3 % Normal 11.6-14.6 [facility] Comment on above: Performed By: #### L 500.3400, L500.4100, L503.7505, L100.0100 ####[facility] [address] [place], [address] Hematocrit (Bld) [Volume fraction] 36.0 % Low 37-47 [facility] Comment on above: Performed By: #### L 500.3400, L500.4100, L503.7505, L100.0100 ####[facility] [address] [place], [address] Hemoglobin (Bld) [Mass/Vol] 12.2 g/dL Normal 12.0-15.0 [facility] Comment on above: Performed By: #### L 500.3400, L500.4100, L503.7505, L100.0100 ####[facility] [address] [place], [address] IG% 0.200 Normal 0.0-0.9 [facility] Comment on above: Result Comment: IG% - Immature Granulocytes (promyelocytes, myelocytes and metamyelocytes) > 1% indicates that a LEFT SHIFT is Present. Performed By: #### L 500.3400, L500.4100, L503.7505, L100.0100 ####[facility] [address] [place], [address] Lymphocytes/100 WBC (Bld) 33.0 % Normal 19-41 [facility] Comment on above: Performed By: #### L 500.3400, L500.4100, L503.7505, L100.0100 ####[facility] [address] [place], [address] MCH (RBC) [Entitic mass] 31.5 pg Normal 27.0-32.0 [facility] Comment on above: Performed By: #### L 500.3400, L500.4100, L503.7505, L100.0100 ####[facility] [address] [place], [address] MCHC (RBC) [Mass/Vol] 33.9 g/dL Normal 32-36 [facility] Comment on above: Performed By: #### L 500.3400, L500.4100, L503.7505, L100.0100 ####[facility] [address] [place], [address] MCV (RBC) [Entitic vol] 93.0 fL Normal 81-99 [facility] Comment on above: Performed By: #### L 500.3400, L500.4100, L503.7505, L100.0100 ####[facility] [address] [place], [address] Monocytes/100 WBC (Bld) 6.0 % Normal 0-10 [facility] Comment on above: Performed By: #### L 500.3400, L500.4100, L503.7505, L100.0100 ####[facility] [address] [place], [address] Neutrophils/100 WBC (Bld) 58.4 % Normal 47-70 [facility] Comment on above: Performed By: #### L 500.3400, L500.4100, L503.7505, L100.0100 ####[facility] [address] [place], [address] Nucleated RBC (Bld) [#/Vol] 0 10*3/uL Normal 0-5 [facility] Comment on above: Performed By: #### L 500.3400, L500.4100, L503.7505, L100.0100 ####[facility] [address] [place], [address] Platelet mean volume (Bld) [Entitic vol] 9.1 fL Normal 6.2-12.0 [facility] Comment on above: Performed By: #### L 500.3400, L500.4100, L503.7505, L100.0100 ####[facility] [address] [place], [address] Platelets (Bld) [#/Vol] 282 10*3/uL Normal 150-450 [facility] Comment on above: Performed By: #### L 500.3400, L500.4100, L503.7505, L100.0100 ####[facility] [address] [place], [address] RBC (Bld) [#/Vol] 3.87 10*6/uL Low 4.2-5.4 [facility] Comment on above: Performed By: #### L 500.3400, L500.4100, L503.7505, L100.0100 ####[facility] [address] [place], [address] RDW SD 48.3 fl High 35.1-43.9 [facility] Comment on above: Performed By: #### L 500.3400, L500.4100, L503.7505, L100.0100 ####[facility] [address] [place], [address] WBC (Bld) [#/Vol] 5.6 10*3/uL Normal 4.4-11.0 [facility] Comment on above: Performed By: #### L 500.3400, L500.4100, L503.7505, L100.0100 ####[facility] [address] [place], [address] Calculated very low density lipoprotein (VLDL) cholesterol measurementOrdered By: Alfie Velez on 06-03-2025 Calculated very low density lipoprotein (VLDL) cholesterol measurement 55 mg/dL High 5-40 [facility] Cardiology Visit Reporton Cardiology Visit Report [facility] [address] [place] [address] OFFICE VISIT Date of Service: 06/03/25 MR#: [id number] Acct: [id number] Name: LAINE MARCIAL Rep #: [id number] : 1955 Provider: ADELINA Ling Age/Sex: 69/F Location: [facility] Status: Signed Agree with assessment and plan. Patient declined to pursue further testing with her symptoms that could be consistent with an ischemic issue. HPI HPI History of Present Illness Details: Laine Marcial is a 69-year-old female who presents to the office today for follow-up for monitoring her cardiovascular health. She has a history of coronary artery disease status post stenting to her RCA with 2 stents in September 2016 at the time of NSTEMI. She experienced right sided jaw pain with severe indigestion that led to her evaluation for NSTEMI. She also has a history of peripheral vascular disease status post stents to her right lower extremity. She has a history of hypertension and hyperlipidemia. Upon presentation today, patient reports fatigue and associates this with poor sleep at night. She reports arm and leg heaviness that she has noticed for about 6-12 months now. She finds herself dizzy/lightheaded when she is sitting on her couch and she gets up to walk. She denies dizziness with changing positions in office today. She noticed increase edema in her legs during the hot weather this summer but reports her bilateral LE do not usually swell much. She continues to experience LE pain with walking and is following with vascular. She finds herself becoming short of breath with walking up and down stairs. This has been noticed for a couple weeks now. She experiences some SOB walking from her car to our office today. Further ROS below. Intake Vital Signs 02/13/25 14:21 06/03/25 07:38 Height 5 ft 1 in 5 ft 1 in Weight: 137 lb BMI 25.9 BP 126/77 H Blood Pressure Location Rt brachial Position Sitting Respiration 18 Pulse 92 Pulse Source Monitor Pulse Oximetry (%) 97 Intake Visit Reasons: 3 M FU Yeast Stacker Required: No Is patient in pain?: No Allergies No Known Allergies Allergy (Verified 06/03/25 14:56) Medications ???Medication ???Instructions ???Recorded ???Confirmed ???Type aspirin 81 mg tablet,delayed 81 mg PO QHS 04/29/20 06/03/25 His tory release (Adult Aspirin Regimen) atorvastatin 80 mg tablet 80 mg PO QHS 04/29/20 06/03/25 His tory clopidogrel 75 mg tablet 75 mg PO QHS 04/29/20 06/03/25 His tory sertraline 100 mg tablet 100 mg PO QHS 04/29/20 06/03/25 Hi story pantoprazole 40 mg tablet,delayed 40 mg PO QHS Heartburn 06/16/20 0 06/03/25 History release lisinopril 20 mg tablet 20 mg PO QHS 08/16/23 06/03/25 His tory metoprolol succinate 100 mg 100 mg PO QDAY 01/29/25 06/03/25 H istory tablet,extended release 24 hr hydrochlorothiazide 25 mg tablet 25 mg PO QAM #90 tabs 06/03/2504/22 Rx Ejection fraction %: 60 Have you fallen in the past year?: No PFSH Medical History Peripheral arterial occlusive disease Depression Cancer Restless legs History of IBS Gastric reflux Vapes nicotine containing substance Former smoker Shortness of breath on exertion History of pain when walking Cardiology follow-up encounter History of heart attack Diarrhea Peripheral vascular disease NSTEMI (non-ST elevated myocardial infarction) ( 09/2016) History of breast cancer Atherosclerosis of coronary artery of 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 Breast ptosis Capsular contracture of breast implant Late effect of radiation Pain of left breast Surgical History History of colonoscopy History of left breast biopsy ( 06/2020) S/P percutaneous transluminal angioplasty (BUILDING SERVICES COORDINATOR) with stent placement History of coronary artery stent placement (10/21/16) History of cholecystectomy History of lumpectomy of left breast History of breast implant removal History of breast implant History of partial hysterectomy History of appendectomy History of tonsillectomy Family History Father Diabetes CVA (cerebral vascular accident) Alzheimer's disease Mother Diabetes Heart disease Hypertension Myocardial infarction Brother Diabetes Myocardial infarction Brother Hypertension Sister Diabetes Social History Smoking Status: Heavy Smoker (>10/day) Electronic Cigarette Use: with nicotine alcohol intake: nev (more content not included)... Normal [facility] Eosinophil percentageOrdered By: Alfie Velez on 06-03-2025 Eosinophils/100 WBC (Bld) 2.0 % 0-5 [facility] Erythrocyte distribution wid th ratioOrdered By: Alfie Velez on 06-03-2025 Erythrocyte distribution width (RBC) [Ratio] 14.3 % 11.6-14.6 [facility] Erythrocyte distribution wid th standard deviationOrdered By: Alfie Velez on 06-03-2025 Erythrocyte distribution width (RBC) [Ratio] 48.3 fl High 35.1-43.9 [facility] Hematocrit Auto (Bld) [Volum e fraction]Ordered By: Alfie Velez on 06-03-2025 Hematocrit (Bld) [Volume fraction] 36.0 % Low 37-47 [facility] Hemoglobin measurementOrdere d By: Alfie Velez on 06-03-2025 Hemoglobin (Bld) [Mass/Vol] 12.2 g/dL 12.0-15.0 [facility] Immature granulocytes/100 WB C Auto (Bld)Ordered By: Alfie Velez on 06-03-2025 Immature granulocytes/100 WBC (Bld) 0.200 % 0.0-0.9 [facility] Comment on above: IG% - Immature Granu locytes (promyelocytes, myelocytes and metamyelocytes) > 1% indicates that a LEFT SHIFT is Present. LDL calc ser/plasOrdered By: Alfie Velez on 06-03-2025 Cholesterol in LDL [Mass/Vol] 97 mg/dL [facility] Comment on above: Rodabucvuw=193-065 m g/dL & Higher Pbop=124 mg/dL or greaterFriedwald Equation for LDL-C Laboratory - Chemistry and C hemistry - challengeOrdered By: Alfie Velez on 06-03-2025 AST [Catalytic activity/Vol] 22 U/L <32 [facility] Lipid Profileon 06-03-2025 CHOL:HDL 3.98 Normal [facility] Comment on above: Performed By: #### L 500.3400, L500.4100, L503.7505, L100.0100 ####[facility] [address] [place], [address] Cholesterol [Mass/Vol] 203 mg/dL High <=200 [facility] Comment on above: Result Comment: Chol esterol level, Desirable <200 mg/dL Borderline high cholesterol 200-239 mg/dL High cholesterol >=240 mg/dL Recommendations of the NCEP Adult Treatment Panel for the following risk-cutoff thresholds for the [place] population. Performed By: #### L 500.3400, L500.4100, L503.7505, L100.0100 ####[facility] [address] [place], [address] Cholesterol in HDL [Mass/Vol] 51 mg/dL Normal [facility] Comment on above: Result Comment: Ariana onal Cholesterol Education Program (NCEP) guidelines: <40 mg/dL: Low HDL-cholesterol (major risk factor for CHD) >= 60 mg/dL: High HDL-cholesterol (negative risk factor for CHD) HDL-cholesterol is affected by a number of factors, e.g. smoking, exercise, hormones, sex and age. Performed By: #### L 500.3400, L500.4100, L503.7505, L100.0100 ####[facility] [address] [place], [address] Cholesterol in LDL [Mass/Vol] 97 mg/dL Normal [facility] Comment on above: Result Comment: Bord bsyazh=220-542 mg/dL Higher Cfjr=643 mg/dL or greater Friedwald Equation for LDL-C Performed By: #### L 500.3400, L500.4100, L503.7505, L100.0100 ####[facility] [address] [place], [address] Cholesterol in VLDL [Mass/Vol] 55 mg/dL High 5-40 [facility] Comment on above: Performed By: #### L 500.3400, L500.4100, L503.7505, L100.0100 ####[facility] [address] [place], [address] Triglyceride [Mass/Vol] 277 mg/dL High [facility] Comment on above: Result Comment: The drugs N-Acetylcysteine and Metamizole may falsely depress this assay. Normal range: <150 mg/dL Borderline High: 150-199 mg/dL High: 200-499 mg/dL Very High: >500 mg/dL Performed By: #### L 500.3400, L500.4100, L503.7505, L100.0100 ####[facility] [address] [place], [address] Liver Profileon 06-03-2025 Albumin [Mass/Vol] 4.4 g/dL Normal 3.4-4.8 [facility] Comment on above: Performed By: #### L 500.3400, L500.4100, L503.7505, L100.0100 ####[facility] [address] [place], [address] ALK PHOS 83 U/L Normal 35-104 [facility] Comment on above: Performed By: #### L 500.3400, L500.4100, L503.7505, L100.0100 ####[facility] [address] [place], [address] ALT [Catalytic activity/Vol] 14 U/L Normal <=34 [facility] Comment on above: Performed By: #### L 500.3400, L500.4100, L503.7505, L100.0100 ####[facility] [address] [place], [address] AST [Catalytic activity/Vol] 22 U/L Normal <=31 [facility] Comment on above: Performed By: #### L 500.3400, L500.4100, L503.7505, L100.0100 ####[facility] [address] [place], [address] Bilirubin [Mass/Vol] 0.24 mg/dL Normal 0.00-1.30 [facility] Comment on above: Performed By: #### L 500.3400, L500.4100, L503.7505, L100.0100 ####[facility] [address] [place], [address] Bilirubin.direct [Mass/Vol] 0.12 mg/dL Normal 0.00-0.30 [facility] Comment on above: Performed By: #### L 500.3400, L500.4100, L503.7505, L100.0100 ####[facility] [address] [place], [address] Globulin (S) [Mass/Vol] 2.9 g/dL Normal 2.2-4.2 [facility] Comment on above: Performed By: #### L 500.3400, L500.4100, L503.7505, L100.0100 ####[facility] [address] [place], [address] T PROT 7.3 g/dL Normal 5.9-8.4 [facility] Comment on above: Performed By: #### L 500.3400, L500.4100, L503.7505, L100.0100 ####[facility] [address] [place], [address] MCV (mean corpuscular volume ) determinationOrdered By: Alfie Velez on 06-03-2025 MCV (RBC) [Entitic vol] 93.0 fL 81-99 [facility] Mean corpuscular hemoglobin (MCH) determinationOrdered By: Alfie Velez on 06-03-2025 MCH (RBC) [Entitic mass] 31.5 pg 27.0-32.0 [facility] Mean corpuscular hemoglobin concentration (MCHC) determinationOrdered By: Alfie Velez on 06-03-2025 MCHC (RBC) [Mass/Vol] 33.9 g/dL 32-36 [facility] Mean platelet volume determi nationOrdered By: Alfie Velez on 06-03-2025 Platelet mean volume (Bld) [Entitic vol] 9.1 fL 6.2-12.0 [facility] Monocyte percentageOrdered B y: Alfie Velez on 06-03-2025 Monocytes/100 WBC (Bld) 6.0 % 0-10 [facility] Natriuretic peptide.B prohor steven N-Terminal [Mass/volume] in Serum or PlasmaOrdered By: Alfie Velez on 06-03-2025 Natriuretic peptide.B prohormone N-Terminal [Mass/Vol] 258 pg/mL <900 [facility] Comment on above: Heart Failure Unlike ly: < 300 pg/mLHeart Failure Likely< 50 Years: > 450 pg/mL50-75 Years: > 900 pg/mL>75 Years: > 1800 pg/mL Neutrophil percentageOrdered By: Alfie Velez on 06-03-2025 Neutrophils/100 WBC (Bld) 58.4 % 47-70 [facility] Nucleated red blood cell per centageOrdered By: Alfie Velez on 06-03-2025 Nucleated RBC/100 WBC (Bld) [Ratio] 0 % 0-5 [facility] Platelet countOrdered By: Sisi Velez on 06-03-2025 Platelets (Bld) [#/Vol] 282 10*3/uL 150-450 [facility] Pro- Brain NATRIURETIC PEPTI Selene 06-03-2025 Natriuretic peptide B (Bld) [Mass/Vol] 258 pg/mL Normal <=900 [facility] Comment on above: Result Comment: Hear t Failure Unlikely: < 300 pg/mL Heart Failure Likely < 50 Years: > 450 pg/mL 50-75 Years: > 900 pg/mL >75 Years: > 1800 pg/mL Performed By: #### L 500.3400, L500.4100, L503.7505, L100.0100 ####[facility] [address] [place], [address] RBC Auto (Bld) [#/Vol]Ordere d By: Alfie Velez on 06-03-2025 RBC (Bld) [#/Vol] 3.87 10*6/uL Low 4.2-5.4 [facility] Screening total cholesterol/ high density lipoprotein (HDL) cholesterol ratioOrdered By: Aflie Velez on 06-03-2025 Cholesterol.total/Ena sterol in HDL [Mass ratio] 3.98 {ratio} [facility] Serum globulin measurementOr dered By: Alfie Velez on 06-03-2025 Globulin (S) [Mass/Vol] 2.9 g/dL 2.2-4.2 [facility] Serum or plasma alanine marroquin otransferase (ALT) measurementOrdered By: Alfie Velez on 06-03-2025 ALT [Catalytic activity/Vol] 14 U/L <35 [facility] Serum or plasma albumin kari urement (mass/volume)Ordered By: Alfie Velez on 06-03-2025 Albumin [Mass/Vol] 4.4 g/dL 3.4-4.8 [facility] Serum or plasma alkaline jonah sphatase measurementOrdered By: Alfie Velez on 06-03-2025 ALP [Catalytic activity/Vol] 83 U/L 35-104 [facility] Serum or plasma cholesterol in HDL measurement (mass/volume)Ordered By: Alfie Velez on 06-03-2025 Cholesterol in HDL [Mass/Vol] 51 mg/dL >40 [facility] Comment on above: National Cholesterol Education Program (NCEP) guidelines:<40 mg/dL: Low HDL-cholesterol (major risk factor for CHD)>= 60 mg/dL: High HDL-cholesterol (negative risk factor for CHD)HDL-cholesterol is affected by a number of factors, e.g. smoking, exercise, hormones, sex and age. Serum or plasma cholesterol measurement (mass/volume)Ordered By: Alife Velez on 06-03-2025 Cholesterol [Mass/Vol] 203 mg/dL High <201 [facility] Comment on above: Cholesterol level, D esirable <200 mg/dLBorderline high cholesterol 200-239 mg/dLHigh cholesterol >=240 mg/dLRecommendations of the NCEP Adult Treatment Panel for the following risk-cutoff thresholds for the [place] population. Total proteinOrdered By: Neville Velez on 06-03-2025 Protein [Mass/Vol] 7.3 g/dL 5.9-8.4 [facility] Triglycerides measurementOrd ered By: Alfie Velez on 06-03-2025 Triglyceride [Mass/Vol] 277 mg/dL High <199 [facility] Comment on above: The drugs N-Acetylcy steine and Metamizole may falsely depress this assay. Normal range: <150 mg/dLBorderline High: 150-199 mg/dLHigh: 200-499 mg/dLVery High: >500 mg/dL White blood cell (WBC) count Ordered By: Alfie Velez on 06-03-2025 WBC (Bld) [#/Vol] 5.6 10*3/uL 4.4-11.0 [facility] Anion gap in Serum or Plasma Ordered By: Dami Bynum on 04-07-2025 Anion gap [Moles/Vol] 11 mmol/L 03-12 [facility] BUN/creatinine ratioOrdered By: Dami Bynum on 04-07-2025 Urea nitrogen/Creatinine [Mass ratio] 17.4 mg/mg 08-17 [facility] Basic Metabolic Profile (BMP )on 04-07-2025 BUN/CRE 17.4 RATIO Normal 08-17 [facility] Comment on above: Performed By: #### L 500.2500 ####[facility] [address] [place], [place], [address] GAP 11 Normal 5-15 [facility] Comment on above: Performed By: #### L 500.2500 ####[facility] [address] [place], [address] Potassium [Moles/Vol] 4.2 mmol/L Normal 3.3-5.1 [facility] Comment on above: Performed By: #### L 500.2500 ####[facility] [address] [place], [place], [id number] Carbon dioxide, total [Moles /volume] in Central venous bloodOrdered By: Dami Bynum on 04-07-2025 CO2 [Moles/Vol] 26.8 mmol/L Normal 21.0-32.0 [facility] Comment on above: Performed By: #### L 500.2500 ####[facility] [address] [place], [place], [address] Chloride assayOrdered By: Evelia Bynum on 04-07-2025 Chloride [Moles/Vol] 101 mmol/L Normal 98-108 [facility] Comment on above: Performed By: #### L 500.2500 ####[facility] [address] [place], [place], [address] Glomerular filtration rate ( GFR) estimation/1.73 sq m using serum, plasma, or whole bOrdered By: Dami Bynum on 04-07-2025 GFR/1.73 sq M.predicted among non-blacks MDRD (S/P/Bld) [Vol rate/Area] 57 mL/min/{1.73_m2} Low >60 [facility] Comment on above: mL/min/1.73m2 CKD-EP I Creatinine Equation (2020) Result Comment: mL/m in/1.73m2 CKD-EPI Creatinine Equation (2020) Performed By: #### L 500.2500 ####[facility] [address] [place], [place], [address] MR/Juan M 04-07-2025 MR/BMS.BVS [facility] Vascular Surgery [address] [place], [place] [address] OFFICE VISIT Date of Service: 04/07/25 MR#: [id number] Acct: [id number] Name: LAINE MARCIAL Rep #: [id number] : 1955 Provider: ADELINA Fajardo Age/Sex: 69/F Location: BMS.BVS Status: Signed Intake Vital Signs 02/13/25 14:21 04/07/25 10:01 Height 5 ft 1 in Weight: 137 lb BP 110/70 Blood Pressure Location Rt brachial Position Sitting Respiration 14 Pulse 67 Pulse Source Monitor Temp 98.2 F Temp Source Temporal Pulse Oximetry (%) 99 Oxygen Delivery Method room air Intake Visit Reasons: LE studies Chief Complaint: establish care Is patient in pain?: Yes Allergies No Known Allergies Allergy (Verified 04/07/25 10:02) Medications ???Medication ???Instructions ???Recorded ???Confirmed ???Type aspirin 81 mg tablet,delayed 81 mg PO QHS 04/29/20 04/07/25 His tory release (Adult Aspirin Regimen) atorvastatin 80 mg tablet 80 mg PO QHS 04/29/20 04/07/25 His tory clopidogrel 75 mg tablet 75 mg PO QHS 04/29/20 04/07/25 His tory sertraline 100 mg tablet 100 mg PO QHS 04/29/20 04/07/25 Hi story pantoprazole 40 mg tablet,delayed 40 mg PO QHS Heartburn 06/16/20 0 04/07/25 History release lisinopril 20 mg tablet 20 mg PO QHS 08/16/23 04/07/25 His tory metoprolol succinate 100 mg 100 mg PO QDAY 01/29/25 04/07/25 H istory tablet,extended release 24 hr hydrochlorothiazide 25 mg tablet 25 mg PO QAM #90 tabs 02/13/2508/22 Rx Is last menstrual period known: No Post menopausal: Yes Patient : No Have you fallen in the past year?: [...] breast cancer Atherosclerosis of coronary artery of 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 Breast ptosis Capsular contracture of breast implant Late effect of radiation Pain of left breast Surgical History History of colonoscopy History of left breast biopsy ( 06/2020) S/P percutaneous transluminal angioplasty (BUILDING SERVICES COORDINATOR) with stent placement History of coronary artery stent placement (10/21/16) History of cholecystectomy History of lumpectomy of left breast History of breast implant removal History of breast implant History of partial hysterectomy History of appendectomy History of tonsillectomy Family History Father Diabetes CVA (cerebral vascular accident) Alzheimer's disease Mother Diabetes Heart disease Hypertension Myocardial infarction Brother Diabetes Myocardial infarction Brother Hypertension Sister Diabetes Social History (Updated 04/07/25 @ 10:00 by Suzanne Maldonado) Smoking Status: Heavy Smoker (>10/day) Electronic Cigarette Use: with nicotine alcohol intake: never substance use type: does not use caffeine: Yes Type: carbonated beverages Number of servings: 2 and coffee additional social history: DOES TAKE ASPIRIN DOES TAKE IBUPROFEN HPI HPI HPI: LAINE MARCIAL, is a 69 F who presents to the office today for evaluation of PAD with history of revascularization and claudication. She has calf pain bilaterally (fairly equally) with activity; she has to stop and stand still to rest after about 1 block, sooner on uneven ground. She does not have any rest pain or nu mbness/paresthesias. She does also have low back pain which worsens with activity. She has not noticed if use of a grocery cart provides any improvement. She does report a history of revascularization via stenting, she thinks in her RLE and she knows it was prior to 2015 though cannot recall a specific date. She reports it was performed by Dr. Finley at [facility] in [place], [place]. She reports she was claudicating at that time, no wounds or rest pain. She recently completed an updated LEAS which demonstrated R JOSEPH 0.65 with monophasic waveforms and L JOSEPH 0.91 with triphasic waveforms. She had severe decrease in JOSEPH with exercise on the R, mild on the L. Last arterial study in our system had been in 2020 at which time R JOSEPH 0.72 with biphasic waveforms and L JOSEPH 1.09 with triphasic waveforms. S (more content not included)... Normal [facility] Potassium measurement (mass/ volume)Ordered By: Dami Bynum on 04-07-2025 Potassium (Unsp spec) [Mass/Vol] 4.2 mmol/L 3.3-5.1 [facility] Serum creatinine measurement (mass/volume)Ordered By: Dami Bynum on 04-07-2025 Creatinine [Mass/Vol] 1.06 mg/dL Normal 0.70-1.20 [facility] Comment on above: Performed By: #### L 500.2500 ####[facility] [address] [place], [address] Serum glucose measurement (m ass/volume)Ordered By: Dami Bynum on 04-07-2025 Glucose [Mass/Vol] 127 mg/dL High 70-99 [facility] Comment on above: Performed By: #### L 500.2500 ####[facility] [address] [facility] [address] Serum or plasma calcium kari urement (mass/volume)Ordered By: Dami Bynum on 04-07-2025 Calcium [Mass/Vol] 9.4 mg/dL Normal 7.6-11.0 [facility] Comment on above: Performed By: #### L 500.2500 ####[facility] [address] [place], [address] Serum or plasma urea nitroge n measurement (mass/volume)Ordered By: Dami Bynum on 04-07-2025 Urea nitrogen [Mass/Vol] 18 mg/dL Normal 4-19 [facility] Comment on above: Performed By: #### L 500.2500 ####[facility] [address] [place], [address] Sodium levelOrdered By: Jan Bynum on 04-07-2025 Sodium [Moles/Vol] 138 mmol/L Normal 133-145 [facility] Comment on above: Performed By: #### L 500.2500 ####[facility] [address] [place], [address] Arterial study reportOrdered By: Carmelo Davies on 03-04-2025 Noninvasive arteriosclerosis study report [facility] [address] [place] [address] Lower Ext Art Exam w/ Exercise 03/04/25 1354 MR#: [id number] Acct: [id number] Name: LAINE MARCIAL Rep #:[id number] : 1955 69 From: Carmelo Griggs Attending Dr: Dr. Dami Bynum MD Status: REG CLI Ordering Dr: Dami Bynum MD Date: 03/04/25 Location: [facility] Sex: F C Admitted: Reason For Study [...] category. Ordering Physician: Dami Bynum Referring Physician: [facility] Performed By: Rina Bravo RVT 03/04/25 170 Date _ Carmelo Davies MD CC: Dr. Dami Bynum MD; [facility] ~ Date Dictated: 03/04/25 1354 Date Transcribed: 03/04/251700 Internet Site Designer: Signed [facility] Work Phone: Lower Ext Art Exam w/ Exerci fernandez 03-04-2025 Lower Ext Art Exam w/ Exercise [facility] [address] [place] [address] Lower Ext Art Exam w/ Exercise 03/04/25 135 MR#: [id number] Acct: [id number] Name: LAINE MARCIAL Rep #: [id number] : 1955 69 From: Carmelo Davies MD Attending Dr: Dr. Dami Bynum MD Status: RE G CLI Ordering Dr: Dami Bynum MD Date: 03/04/25 Location: [facility] Sex: F C Admitted: Reason For Study [...] category. Ordering Physician: Dami Bynum Referring Physician: [facility] Performed By: Rina Bravo RVT 03/04/25 170 Date Carmelo Davies MD CC: Dr. Dami Bynum MD; [facility] Date Dictated: 03/04/25 1354 Date Transcribed: 03/04/251700 Internet Site Designer: Signed Normal [facility] 12 Lead EKG performed by [facility] on 02-13-2025 12 Lead EKG performed by [facility] [address] [facility] [facility] [place] [address] 12 Lead EKG performed by [facility] 02/13/25812 MR#: [id number] Acct: [id number] Name: LAINE MARCIAL Rep #: [id number] : 1955 69 From: Dami Bynum MD Attending Dr: Dr. Dami Bynum MD Status: DE P AMB Ordering Dr: Dami Bynum MD Date: 02/13/25 [place] [facility] Sex: F C Admitted: BMS/12 Lead EKG performed by [facility] ECG Report Interpretation ---Sinus Rhythm WITHIN NORMAL LIMITSElectronically signed on 02/13/2025 at 15:[address] Arley Das MD [employer] Version [id number] 02/13/25 1503 Date Dami Bynum MD CC: [facility] Date Dictated: 02/13/25812 Date Transcribed: 02/13/25812 Internet Site Designer: Signed Normal [facility] Cardiology Visit Reporton Cardiology Visit Report [facility] [address] [place] [address] OFFICE VISIT Date of Service: 02/13/25 MR#: [id number] Acct: [id number] Name: LAINE MARCIAL Rep #: [id number] : 1955 Provider: Dr. Dami galdamez MD Age/Sex: 69/F Location: BMS.G Status: Signed HPI HPI History of Present Illness Details: Patient is a 69-year-old white female that comes in today for new patient visit. Has a history of known coronary disease status post remote stenting of the right coronary with 2 stents back in September 2016 done at [facility] outside of [place]. That was at the time of the non-STEMI. At that time the patient had right sided jaw pain associated with severe indigestion. She also has a history of peripheral vascular the status post stents to the right lower extremity that were done in [facility] in [place] that preceded her non-STEMI. Patient reports that [...] air Intake Visit Reasons: CAD W/ RCA (NYA) Yeast Stacker Required: No Accompanied by: Self Is patient [...] breast cancer Atherosclerosis of coronary artery of 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 Breast ptosis Capsular contracture of breast implant Late effect of radiation Pain of left breast Surgical History History of colonoscopy History of left breast biopsy ( 06/2020) S/P percutaneous transluminal angioplasty (BUILDING SERVICES COORDINATOR) with stent placement History of coronary artery stent placement (10/21/16) History of cholecystectomy History of lumpectomy of left breast History of breast implant removal History of breast implant History of partial hysterectomy History of appendectomy History of tonsillectomy Family History Father Diabetes CVA (cerebral vascular accident) Alzheimer's disease Mother Diabete (more content not included)... Normal [facility] Comprehensive Metabolic Prof ilon 12-24-2024 Albumin [Mass/Vol] 4.4 g/dL Normal 3.4-4.8 [facility] Comment on above: Performed By: #### L 506.1001, L501.9520, L100.0100, L500.4050, L500.4100 #### [facility] [address] [place], [address] Albumin/Globulin [Mass ratio] 1.6 {ratio} Normal 0.9-2.4 [facility] Comment on above: Performed By: #### L 506.1001, L501.9520, L100.0100, L500.4050, L500.4100 #### [facility] [address] [place], [address] ALK PHOS 76 U/L Normal 35-104 [facility] Comment on above: Performed By: #### L 506.1001, L501.9520, L100.0100, L500.4050, L500.4100 #### [facility] [address] [place], [address] ALT [Catalytic activity/Vol] 12 U/L Normal <=34 [facility] Comment on above: Performed By: #### L 506.1001, L501.9520, L100.0100, L500.4050, L500.4100 #### [facility] [address] [place], [address] Anion gap [Moles/Vol] 13 mmol/L Normal 5-15 [facility] Comment on above: Performed By: #### L 506.1001, L501.9520, L100.0100, L500.4050, L500.4100 #### [facility] [address] [place], [address] AST [Catalytic activity/Vol] 25 U/L Normal <=31 [facility] Comment on above: Performed By: #### L 506.1001, L501.9520, L100.0100, L500.4050, L500.4100 #### [facility] [address] [place], [address] Bilirubin [Mass/Vol] 0.32 mg/dL Normal 0.00-1.30 [facility] Comment on above: Performed By: #### L 506.1001, L501.9520, L100.0100, L500.4050, L500.4100 #### [facility] [address] [place], [address] BUN/CRE 14.5 RATIO Normal 10-20 [facility] Comment on above: Performed By: #### L 506.1001, L501.9520, L100.0100, L500.4050, L500.4100 #### [facility] [address] [place], [address] Calcium [Mass/Vol] 9.4 mg/dL Normal 7.6-11.0 [facility] Comment on above: Performed By: #### L 506.1001, L501.9520, L100.0100, L500.4050, L500.4100 #### [facility] [address] [place], [address] Chloride [Moles/Vol] 104 mmol/L Normal 96-108 [facility] Comment on above: Performed By: #### L 506.1001, L501.9520, L100.0100, L500.4050, L500.4100 #### [facility] [address] [place], [address] CO2 [Moles/Vol] 23.4 mmol/L Normal 22.0-29.0 [facility] Comment on above: Performed By: #### L 506.1001, L501.9520, L100.0100, L500.4050, L500.4100 #### [facility] [address] [place], [address] Creatinine [Mass/Vol] 0.9 mg/dL Normal 0.6-1.0 [facility] Comment on above: Performed By: #### L 506.1001, L501.9520, L100.0100, L500.4050, L500.4100 #### [facility] [address] [place], [address] GFR/1.73 sq M.predicted among non-blacks MDRD (S/P/Bld) [Vol rate/Area] 74 mL/min/{1.73_m2} Normal >60 [facility] Comment on above: Result Comment: mL/m in/1.73m2 CKD-EPI Creatinine Equation (2020) Performed By: #### L 506.1001, L501.9520, L100.0100, L500.4050, L500.4100 #### [facility] [address] [place], [address] Globulin (S) [Mass/Vol] 2.8 g/dL Normal 2.2-4.2 [facility] Comment on above: Performed By: #### L 506.1001, L501.9520, L100.0100, L500.4050, L500.4100 #### [facility] [address] [place], [address] Glucose [Mass/Vol] 87 mg/dL Normal 70-99 [facility] Comment on above: Performed By: #### L 506.1001, L501.9520, L100.0100, L500.4050, L500.4100 #### [facility] [address] [place], [address] Potassium [Moles/Vol] 4.0 mmol/L Normal 3.3-5.1 [facility] Comment on above: Performed By: #### L 506.1001, L501.9520, L100.0100, L500.4050, L500.4100 #### [facility] [address] [place], [address] Sodium [Moles/Vol] 140 mmol/L Normal 133-145 [facility] Comment on above: Performed By: #### L 506.1001, L501.9520, L100.0100, L500.4050, L500.4100 #### [facility] [address] [place], [address] T PROT 7.2 g/dL Normal 5.9-8.4 [facility] Comment on above: Performed By: #### L 506.1001, L501.9520, L100.0100, L500.4050, L500.4100 #### [facility] [address] [place], [address] Urea nitrogen [Mass/Vol] 12 mg/dL Normal 4-19 [facility] Comment on above: Performed By: #### L 506.1001, L501.9520, L100.0100, L500.4050, L500.4100 #### [facility] [address] [place], [address] L506.1001on 12-24-2024 Vitamin D 25-OH 40.9 ng/mL Normal 30-100 [facility] Comment on above: Order Comment: JOSEPH Low ADD TO BLOOD FROM YESTERDAY WG2 2 H TY4 2 E Result Comment: Doreen min D Status Deficiency: <20 ng/mL (50nmol/L) Insufficiency: 20-30 ng/mL (50-75 nmol/L) Sufficiency: 30-100 ng/mL (75-250 nmol/L) Toxicity: >100 ng/mL (>250 nmol/L) Performed By: #### L 506.1001, L501.9520, L100.0100, L500.4050, L500.4100 #### [facility] [address] [facility], [address] Lipid Profileon 12-24-2024 Cholesterol in LDL [Mass/Vol] 97 mg/dL Normal 0-130 [facility] Comment on above: Performed By: #### L 506.1001, L501.9520, L100.0100, L500.4050, L500.4100 #### [facility] [address] [place], [address] Thyroid Stim Hormone (TSH)on 12-24-2024 TSH 1.260 uIU/mL Normal 0.300-4.200 [facility] Comment on above: Performed By: #### L 506.1001, L501.9520, L100.0100, L500.4050, L500.4100 #### [facility] [address] [place], [address] Absolute lymphocyte countOrd ered By: [facility] Delaney Dietrich on 12-23-2024 Lymphocytes Auto (Unsp spec) [#/Vol] 2.08 10*3/uL 0.83-4.51 [facility] Absolute neutrophil countOrd ered By: [facility] Delaney Dietrich on 12-23-2024 Neutrophils (Bld) [#/Vol] 4.2 10*3/uL 2.0-7.7 [facility] Automated lymphocyte count a s percentage of total leukocytesOrdered By: [facility] Delaney Dietrich on 12-23-2024 Lymphocytes/100 WBC Auto (Unsp spec) 30.7 % - [facility] BUN/creatinine ratioOrdered By: [facility] Delaney Dietrich on 12-23-2024 Urea nitrogen/Creatinine [Mass ratio] 14.5 mg/mg 10- [facility] Basophil percentageOrdered B y: [facility] Delaney Dietrich on 12-23-2024 Basophils/100 WBC (Bld) 0.6 % 0-1 [facility] Bilirubin, totalOrdered By: [facility] Delaney Dietrich on 12-23-2024 Bilirubin [Mass/Vol] 0.32 mg/dL 0.00-1.30 [facility] CBC W/Diff, Automatedon 11-30 Absolute Lymph 2.08 X10 3/uL Normal 0.83-4.51 [facility] Comment on above: Performed By: #### L 506.1001, L501.9520, L100.0100, L500.4050, L500.4100 #### [facility] [address] [place], [address] Absolute Neut 4.2 X10 3/uL Normal 2.0-7.7 [facility] Comment on above: Performed By: #### L 506.1001, L501.9520, L100.0100, L500.4050, L500.4100 #### [facility] [address] [place], [address] Basophils/100 WBC (Bld) 0.6 % Normal 0-1 [facility] Comment on above: Performed By: #### L 506.1001, L501.9520, L100.0100, L500.4050, L500.4100 #### [facility] [address] [place], [address] Eosinophils/100 WBC (Bld) 1.5 % Normal 0-5 [facility] Comment on above: Performed By: #### L 506.1001, L501.9520, L100.0100, L500.4050, L500.4100 #### [facility] [address] [place], [address] Erythrocyte distribution width (RBC) [Ratio] 13.1 % Normal 11.6-14.6 [facility] Comment on above: Performed By: #### L 506.1001, L501.9520, L100.0100, L500.4050, L500.4100 #### [facility] [address] [place], [address] Hematocrit (Bld) [Volume fraction] 39.2 % Normal 37-47 [facility] Comment on above: Performed By: #### L 506.1001, L501.9520, L100.0100, L500.4050, L500.4100 #### [facility] [address] [place], [address] Hemoglobin (Bld) [Mass/Vol] 12.8 g/dL Normal 12.0-15.0 [facility] Comment on above: Performed By: #### L 506.1001, L501.9520, L100.0100, L500.4050, L500.4100 #### [facility] [address] [place], [address] IG% 0.100 Normal 0.0-0.9 [facility] Comment on above: Result Comment: IG% - Immature Granulocytes (promyelocytes, myelocytes and metamyelocytes) > 1% indicates that a LEFT SHIFT is Present. Performed By: #### L 506.1001, L501.9520, L100.0100, L500.4050, L500.4100 #### [facility] [address] [place], [address] Lymphocytes/100 WBC (Bld) 30.7 % Normal 19-41 [facility] Comment on above: Performed By: #### L 506.1001, L501.9520, L100.0100, L500.4050, L500.4100 #### [facility] [address] [place], [address] MCH (RBC) [Entitic mass] 30.3 pg Normal 27.0-32.0 [facility] Comment on above: Performed By: #### L 506.1001, L501.9520, L100.0100, L500.4050, L500.4100 #### [facility] [address] [place], [address] MCHC (RBC) [Mass/Vol] 32.7 g/dL Normal 32-36 [facility] Comment on above: Performed By: #### L 506.1001, L501.9520, L100.0100, L500.4050, L500.4100 #### [facility] [address] [place], [address] MCV (RBC) [Entitic vol] 92.9 fL Normal 81-99 [facility] Comment on above: Performed By: #### L 506.1001, L501.9520, L100.0100, L500.4050, L500.4100 #### [facility] [address] [place], [address] Monocytes/100 WBC (Bld) 5.3 % Normal 0-10 [facility] Comment on above: Performed By: #### L 506.1001, L501.9520, L100.0100, L500.4050, L500.4100 #### [facility] [address] [place], [address] Neutrophils/100 WBC (Bld) 61.8 % Normal 47-70 [facility] Comment on above: Performed By: #### L 506.1001, L501.9520, L100.0100, L500.4050, L500.4100 #### [facility] [address] [place], [address] Nucleated RBC (Bld) [#/Vol] 0 10*3/uL Normal 0-5 [facility] Comment on above: Performed By: #### L 506.1001, L501.9520, L100.0100, L500.4050, L500.4100 #### [facility] [address] [place], [address] Platelet mean volume (Bld) [Entitic vol] 9.6 fL Normal 6.2-12.0 [facility] Comment on above: Performed By: #### L 506.1001, L501.9520, L100.0100, L500.4050, L500.4100 #### [facility] [address] [place], [address] Platelets (Bld) [#/Vol] 288 10*3/uL Normal 150-450 [facility] Comment on above: Performed By: #### L 506.1001, L501.9520, L100.0100, L500.4050, L500.4100 #### [facility] [address] [place], [address] RBC (Bld) [#/Vol] 4.22 10*6/uL Normal 4.2-5.4 [facility] Comment on above: Performed By: #### L 506.1001, L501.9520, L100.0100, L500.4050, L500.4100 #### [facility] [address] [place], [address] RDW SD 44.2 fl High 35.1-43.9 [facility] Comment on above: Performed By: #### L 506.1001, L501.9520, L100.0100, L500.4050, L500.4100 #### [facility] [address] [place], [address] WBC (Bld) [#/Vol] 6.8 10*3/uL Normal 4.4-11.0 [facility] Comment on above: Performed By: #### L 506.1001, L501.9520, L100.0100, L500.4050, L500.4100 #### [facility] [address] [place], [address] Carbon dioxide measurementOr dered By: [facility] Delaney Dietrich on 12-23-2024 CO2 [Moles/Vol] 23.4 mmol/L 22.0-29.0 [facility] Chloride measurementOrdered By: [facility] Delaney Dietrich on 12-23-2024 Chloride [Moles/Vol] 104 mmol/L 96-108 [facility] Cholesterol in VLDL [Mass/Vo l]Ordered By: [facility] Delaney Dietrich on 12-23-2024 VLDL Cholesterol 29 mg/dL 5-40 [facility] Creatinine [Moles/Vol]Ordere d By: [facility] Delaney Dietrich on 12-23-2024 Creatinine [Mass/Vol] 0.9 mg/dL 0.6-1.0 [facility] Eosinophil percentageOrdered By: [facility] Delaney Dietrich on 12-23-2024 Eosinophils/100 WBC (Bld) 1.5 % 0-5 [facility] Erythrocyte distribution wid th ratioOrdered By: [facility] Delaney Dietrich on 12-23-2024 Erythrocyte distribution width (RBC) [Ratio] 13.1 % 11.6-14.6 [facility] Erythrocyte distribution wid th standard deviationOrdered By: [facility] Delaney Dietrich on 12-23-2024 Erythrocyte distribution width (RBC) [Entitic vol] 44.2 fL High 35.1-43.9 [facility] Erythrocyte distribution width (RBC) [Ratio] 44.2 fl High 35.1-43.9 [facility] GFR/1.73 sq M.predicted tyler g non-blacks MDRD (S/P/Bld) [Vol rate/Area]Ordered By: [facility] Delaney Dietrich on 12-23-2024 Estimated GFR (MDRD) Non-Af Amer 74 >60 [facility] Comment on above: mL/min/1.73m2 CKD-EP I Creatinine Equation (2020) Glomerular filtration rate ( GFR) estimation/1.73 sq m using serum, plasma, or whole bOrdered By: [facility] Delaney Dietrich on 12-23-2024 GFR/1.73 sq M.predicted among non-blacks MDRD (S/P/Bld) [Vol rate/Area] 74 mL/min/{1.73_m2} >60 [facility] Comment on above: mL/min/1.73m2 CKD-EP I Creatinine Equation (2020) Hematocrit Auto (Bld) [Volum e fraction]Ordered By: [facility] Delaney Dietrich on 12-23-2024 Hematocrit (Bld) [Volume fraction] 39.2 % 37-47 [facility] Hemoglobin measurementOrdere d By: [facility] Delaney Dietrich on 12-23-2024 Hemoglobin (Bld) [Mass/Vol] 12.8 g/dL 12.0-15.0 [facility] Immature granulocytes/100 WB C Auto (Bld)Ordered By: [facility] Delaney Dietrich on 12-23-2024 Immature granulocytes/100 WBC (Bld) 0.100 % 0.0-0.9 [facility] Comment on above: IG% - Immature Granu locytes (promyelocytes, myelocytes and metamyelocytes) > 1% indicates that a LEFT SHIFT is Present. Laboratory - Chemistry and C hemistry - challengeOrdered By: [facility] Delaney Dietrich on 12-23-2024 AST [Catalytic activity/Vol] 25 U/L <32 [facility] Low density lipoprotein (LDL ) cholesterol measurementOrdered By: [facility] Delaney Dietrich on 12-23-2024 Cholesterol in LDL [Mass/Vol] 97 mg/dL 0-130 [facility] Lymphocytes Auto (Unsp spec) [#/Vol]Ordered By: [facility] Delaney Dietrich on 12-23-2024 Lymphocytes (Bld) [#/Vol] 2.08 10*3/uL 0.83-4.51 [facility] Lymphocytes/100 WBC Auto (Un sp spec)Ordered By: [facility] Delaney Dietrich on 12-23-2024 Lymphocytes/100 WBC (Bld) 30.7 % 19-41 [facility] MCV (mean corpuscular volume ) determinationOrdered By: [facility] Delaney Dietrich on 12-23-2024 MCV (RBC) [Entitic vol] 92.9 fL 81-99 [facility] Mean corpuscular hemoglobin (MCH) determinationOrdered By: [facility] Delaney Dietrich on 12-23-2024 MCH (RBC) [Entitic mass] 30.3 pg 27.0-32.0 [facility] Mean corpuscular hemoglobin concentration (MCHC) determinationOrdered By: [facility] Delaney Dietrich on 12-23-2024 MCHC (RBC) [Mass/Vol] 32.7 g/dL 32-36 [facility] Mean platelet volume determi nationOrdered By: [facility] Delaney Dietrich on 12-23-2024 Platelet mean volume (Bld) [Entitic vol] 9.6 fL 6.2-12.0 [facility] Monocyte percentageOrdered B y: [facility] Delaney Dietrich on 12-23-2024 Monocytes/100 WBC (Bld) 5.3 % 0-10 [facility] Neutrophil percentageOrdered By: [facility] Delaney Dietrich on 12-23-2024 Neutrophils/100 WBC (Bld) 61.8 % 47-70 [facility] No Panel InformationOrdered By: [facility] Delaney Dietrich on 12-23-2024 Vitamin D 25-Hydroxy 40.9 ng/mL 30-100 [facility] Comment on above: Vitamin D StatusDefi ciency: <20 ng/mL (50nmol/L)Insufficiency: 20-30 ng/mL (50-75 nmol/L)Sufficiency: 30-100 ng/mL (75-250 nmol/L)Toxicity: >100 ng/mL (>250 nmol/L) Nucleated red blood cell per centageOrdered By: [facility] Delaney Dietrich on 12-23-2024 Nucleated RBC/100 WBC (Bld) [Ratio] 0 % 0-5 [facility] Platelet countOrdered By: [facility] Delaney Dietrich on 12-23-2024 Platelets (Bld) [#/Vol] 288 10*3/uL 150-450 [facility] RBC Auto (Bld) [#/Vol]Ordere d By: [facility] Delaney Dietrich on 12-23-2024 RBC (Bld) [#/Vol] 4.22 10*6/uL 4.2-5.4 [facility] Serum globulin measurementOr dered By: [facility] Delaney Dietrich on 12-23-2024 Globulin (S) [Mass/Vol] 2.8 g/dL 2.2-4.2 [facility] Serum glucose measurement (m ass/volume)Ordered By: [facility] Delaney Dietrich on 12-23-2024 Glucose [Mass/Vol] 87 mg/dL 70-99 [facility] Serum or plasma alanine marroquin otransferase (ALT) measurementOrdered By: [facility] Delaney Nya on 12-23-2024 ALT [Catalytic activity/Vol] 12 U/L <35 [facility] Serum or plasma albumin kari urement (mass/volume)Ordered By: [facility] Delaneyjhony Dietrich 12-23-2024 Albumin [Mass/Vol] 4.4 g/dL 3.4-4.8 [facility] Serum or plasma albumin/glob ulin mass ratioOrdered By: [facility] Nya 12-23-2024 Albumin/Globulin [Mass ratio] 1.6 {ratio} 0.9-2.4 [facility] Serum or plasma alkaline jonah sphatase measurementOrdered By: [facility] 12-23-2024 ALP [Catalytic activity/Vol] 76 U/L 35-104 [facility] Serum or plasma anion gap de termination (moles/volume)Ordered By: [facility] 12-23-2024 Anion gap [Moles/Vol] 13 mmol/L 5-15 [facility] Serum or plasma calcium kari urement (mass/volume)Ordered By: [facility] Delaneyjhony Dietrich 12-23-2024 Calcium [Mass/Vol] 9.4 mg/dL 7.6-11.0 [facility] Serum or plasma cholesterol in HDL measurement (mass/volume)Ordered By: [facility] 12-23-2024 Cholesterol in HDL [Mass/Vol] 55 mg/dL >40 [facility] Comment on above: The drugs N-Acetylcy steine and Metamizole may falsely depress this assay. National Cholesterol Education Program (NCEP) guidelines:<40 mg/dL: Low HDL-cholesterol (major risk factor for CHD)>= 60 mg/dL: High HDL-cholesterol (negative risk factor for CHD)HDL-cholesterol is affected by a number of factors, e.g. smoking, exercise, hormones, sex and age. Serum or plasma cholesterol in VLDL measurement (mass/volume)Ordered By: [facility] Delaney Dietrich 12-23-2024 Cholesterol in VLDL [Mass/Vol] 29 mg/dL 5-40 [facility] [facility] Serum or plasma cholesterol measurement (mass/volume)Ordered By: [facility] Delaney Dietrich on 12-23-2024 Cholesterol [Mass/Vol] 181 mg/dL <201 [facility] Comment on above: Cholesterol level, D esirable <200 mg/dLBorderline high cholesterol 200-239 mg/dLHigh cholesterol >=240 mg/dLRecommendations of the NCEP Adult Treatment Panel for the following risk-cutoff thresholds for the [place] population. Serum or plasma creatinine m easurement (moles/volume)Ordered By: [facility] Delaney Dietrich on 12-23-2024 Creatinine [Moles/Vol] 0.9 mg/dL 0.6-1.0 [facility] Serum or plasma potassium me asurementOrdered By: [facility] Delaney Dietrich on 12-23-2024 Potassium [Moles/Vol] 4.0 mmol/L 3.3-5.1 [facility] Serum or plasma sodium measu rement (moles/volume)Ordered By: [facility] Delaney Dietrich on 12-23-2024 Sodium [Moles/Vol] 140 mmol/L 133-145 [facility] Serum or plasma urea nitroge n measurement (mass/volume)Ordered By: [facility] Delaney Dietrich on 12-23-2024 Urea nitrogen [Mass/Vol] 12 mg/dL 4-19 [facility] TSH DL <= 0.005 mIU/L QnOrde red By: [facility] Delaney Dietrich on 12-23-2024 Thyroid Stimulating Hormone (TSH) 1.260 uIU/mL 0.300-4.200 [facility] TSH Qn 1.260 uIU/mL 0.300-4.200 [facility] Total proteinOrdered By: [facility] Delaney Dietrich on 12-23-2024 Protein [Mass/Vol] 7.2 g/dL 5.9-8.4 [facility] Triglycerides measurementOrd ered By: [facility] Delaney Dietrich on 12-23-2024 Triglyceride [Mass/Vol] 145 mg/dL <199 [facility] Comment on above: The drugs N-Acetylcy steine and Metamizole may falsely depress this assay. Normal range: <150 mg/dLBorderline High: 150-199 mg/dLHigh: 200-499 mg/dLVery High: >500 mg/dL White blood cell (WBC) count Ordered By: [facility] Delaney Dietrich on 12-23-2024 WBC (Bld) [#/Vol] 6.8 10*3/uL 4.4-11.0 [facility] CNOVon 11-20-2024 CNOV Office Visit ([facility] ) LAINE MARCIAL ([id number]) 1955 F Date Time Provider Department 11/20/24 11:30 AM GARO HE [facility] During your visit today, we recorded the following information about you: Temperature Pulse Respiration Blood pressure 98 degrees 92/minute 20/minute 160/102 Weight 63.9 kg Garo He, HOST/HOSTESS GROUND.COILER OPERATOR 11/20/2024 12:02 PM Signed Subjective HPI Nontoxic-appearing [...] of care. This note was generated using [employer]/Own[employer] software. It may contain errors in wording, punctuation, or spelling. Garo He APRN.COILER OPERATOR Allergies As of Date: 11/20/2024 (No Known Allergies) Date Reviewed: 11/20/2024 Reviewed by: Garo He APRN.COILER OPERATOR - Fully Assessed Reason for Visit: Cough [28] Cmt: Chest congestion (more content not included)... Normal [facility] Hand Min 3 Viewson 4 Hand Min 3 Views [facility] Imaging Services [address] [place] [address] Hand Min 3 Views MR#: [id number] Acct: [id number] Name: LAINE MARCIAL Rep #: [id number] : 1955 F 68 From: Alfred Schilling MD PCP: [facility] Status: REG CLI Study: Hand Min 3 Views Date of Exam: 08/07/24 Exam# [id number] Ordering Dr: Delaney Dietrich [facility] [employer]ER-C [id number] EXAM: XR LEFT HAND COMPLETE, 3 OR [...] Schilling MD at 16:40 EDT , CC: [facility] ERICKA Dietrich; [facility] Internet Site Designer: Signed Normal [facility] Wrist min 3 Viewson 08-07-20 Wrist min 3 Views [facility] Imaging Services [address] [place] [address] Wrist min 3 Views MR#: [id number] Acct: [id number] Name: LAINE MARCIAL Rep #: [id number] : 1955 F 68 From: Alfred Schilling MD PCP: [facility] Status: REG CLI Study: Wrist min 3 Views Date of Exam: 08/07/24 Exam# [id number] Ordering Dr: Delaney Dietrich [facility] [employer] [id number] EXAM: XR LEFT WRIST COMPLETE, 3 OR [...] Schilling MD at 16:40 EDT , CC: [facility] ERICKA Dietrich; [facility] Internet Site Designer: Signed Normal [facility] CNOVon 07-15-2024 CNOV Office Visit ([facility] ) TOÑOLAINE ([id number]) 1955 F Date Time Provider Department 07/15/24 6:45 PM GIBSONJULIOGARO [facility] During your visit today, we recorded the following information about you: Temperature Pulse Respiration Blood pressure 98.6 degrees 79/minute 18/minute 166/84 Weight 63 kg Garo He, HOST/HOSTESS GROUND.COILER OPERATOR 07/15/2024 7:49 PM Signed Subjective HPI Nontoxic-appearing [...] fractures to this hand in the past. [id number]. Past medical history prescription medications allergies reviewed. [...] of care. This note was generated using [employer] software. It may contain errors in wording, punctuation, or spelling. Garo He APRN. (more content not included)... Normal [facility] No Panel Informationon 07-15 IMPRESSION: No acute abnormality. Internet Site Designer: PSCB Transcribe Date/Time: Jul 15 2024 7:29P Dictated by : TEENA CARR MD This examination was interpreted and the report reviewed and electronically signed by: TEENA CARR MD on Jul 15 2024 7:31PM EST DIVISION OF RADIOLOGY Radiology Study observation (narrative) [facility] No Panel InformationOrdered By: [facility] Provider on 07-15-2024 [facility] XR FOREARM 2V AP/LAT LTon XR [...] AP/LAT LT -- LEFT with 4 (accession [id number]), 2 (accession [id number]) views on 4 (accession [id number]), 2 (accession [id number]) images Comparison: None RESULT: There is no acute fracture or malalignment. There is no radiopaque foreign body or soft tissue gas. IMPRESSION: No acute abnormality. Internet Site Designer: PSCB Transcribe Date/Time: Jul 15 2024 7:29P Dictated by : TEENA CARR MD This examination was interpreted and the report reviewed and electronically signed by: TEENA CARR MD on Jul 15 2024 7:31PM EST [id number] Normal [facility] XR Radius and Ulna - left AP [...] AP/LAT LT -- LEFT with 4 (accession [id number]), 2 (accession [id number]) views on 4 (accession [id number]), 2 (accession [id number]) images Comparison: None RESULT: There is no acute fracture or malalignment. There is no radiopaque foreign body or soft tissue gas. DIVISION OF RADIOLOGY Provider, [facility] - 07/15/2024 * * *Final Report* * [...] AP/LAT LT -- LEFT with 4 (accession [id number]), 2 (accession [id number]) views on 4 (accession [id number]), 2 (accession [id number]) images Comparison: None RESULT: There is no acute fracture or malalignment. There is no radiopaque foreign body or soft tissue gas. IMPRESSION IMPRESSION: No acute abnormality. Internet Site Designer: P[employer] Transcribe Date/Time: Jul 15 2024 7:29P Dictated by : TEENA CARR MD This examination was interpreted and the report reviewed and electronically signed by: TEENA CARR MD on Jul 15 2024 7:31PM [facility] XR WRIST 4V PA/LAT/OBL/SCAPH LTon 07-15-2024 XR [...] AP/LAT LT -- LEFT with 4 (accession [id number]), 2 (accession [id number]) views on 4 (accession [id number]), 2 (accession [id number]) images Comparison: None RESULT: There is no acute fracture or malalignment. There is no radiopaque foreign body or soft tissue gas. IMPRESSION: No acute abnormality. Internet Site Designer: [employer] Transcribe Date/Time: Jul 15 2024 7:29P Dictated by : TEENA CARR MD This examination was interpreted and the report reviewed and electronically signed by: TEENA CARR MD on Jul 15 2024 7:31PM EST [id number] Normal [facility] XR Wrist - left 4 Viewson * [...] AP/LAT LT -- LEFT with 4 (accession [id number]), 2 (accession [id number]) views on 4 (accession [id number]), 2 (accession [id number]) images Comparison: None RESULT: There is no acute fracture or malalignment. There is no radiopaque foreign body or soft tissue gas. DIVISION OF RADIOLOGY Provider, [facility] - 07/15/2024 * * *Final Report* * [...] AP/LAT LT -- LEFT with 4 (accession [id number]), 2 (accession [id number]) views on 4 (accession [id number]), 2 (accession [id number]) images Comparison: None RESULT: There is no acute fracture or malalignment. There is no radiopaque foreign body or soft tissue gas. IMPRESSION IMPRESSION: No acute abnormality. Internet Site Designer: [facility] Transcribe Date/Time: Jul 15 2024 7:29P Dictated by : TEENA CARR MD This examination was interpreted and the report reviewed and electronically signed by: TEENA CARR MD on Jul 15 2024 7:31PM EST [facility] Absolute lymphocyte countOrd ered By: [facility] Delaney Dietrich on 01-14-2024 Lymphocytes Auto (Unsp spec) [#/Vol] 1.39 10*3/uL 0.83-4.51 [facility] Automated lymphocyte count a s percentage of total leukocytesOrdered By: [facility] Delaney Dietrich on 01-14-2024 Lymphocytes/100 WBC Auto (Unsp spec) 28.3 % 19-41 [facility] Basophil percentageOrdered B y: [facility] Delaney Dietrich on 01-14-2024 Basophils/100 WBC (Bld) 0.4 % 0-1 [facility] Bilirubin [Mass/Vol] 0.40 mg/dL 0.20-1.00 [facility] Comment on above: For patients on eltr ombopag therapy, use of Dimension Witt TBIL is not recommended. Chloride [Moles/Vol] 107 mmol/L 98-107 [facility] Cholesterol [Mass/Vol] 174 mg/dL <200 [facility] Comment on above: <200 mg/dL Desirable 200-240 mg/dL Borderline >240 mg/dL High Risk Eosinophils/100 WBC (Bld) 1.6 % 0-5 [facility] Glucose [Mass/Vol] 110 mg/dL 74-106 [facility] Comment on above: Fasting Glucose resu lt from 100 to 125 mg/dL suggests IMPAIRED HOMEOSTASIS per A.D.A. criteria. Hemoglobin (Bld) [Mass/Vol] 12.5 g/dL 12.0-15.0 [facility] Monocytes/100 WBC (Bld) 5.1 % 0-10 [facility] Neutrophils (Bld) [#/Vol] 3.2 10*3/uL 2.0-7.7 [facility] Neutrophils/100 WBC (Bld) 64.4 % 47-70 [facility] Potassium [Moles/Vol] 3.7 mmol/L 3.5-5.1 [facility] Protein [Mass/Vol] 7.2 g/dL 6.4-8.2 [facility] Sodium [Moles/Vol] 142 mmol/L 136-145 [facility] Triglyceride [Mass/Vol] 203 mg/dL <199 [facility] Comment on above: The drugs N-Acetylcy steine and Metamizole may falsely depress this assay.Serum Triglycerides Reference Interval Normal <150 mg/dL Borderline high 150 - 199 mg/dL High 200 - 499 mg/dL Very High > or = 500 mg/dL WBC (Bld) [#/Vol] 4.9 10*3/uL 4.4-11.0 [facility] Determination of erythrocyte mean corpuscular volume (MCV)Ordered By: [facility] Delaney Dietrich on 01-14-2024 MCV (RBC) [Entitic vol] 93.1 fL 81-99 [facility] Erythrocyte distribution wid th ratioOrdered By: [facility] Delaney Dietrich on 01-14-2024 Erythrocyte distribution width (RBC) [Ratio] 13.8 % 11.6-14.6 [facility] Erythrocyte distribution wid th standard deviationOrdered By: [facility] Delaney Dietrich on 01-14-2024 Erythrocyte distribution width (RBC) [Entitic vol] 46.9 fL 35.1-43.9 [facility] Hematocrit Auto (Bld) [Volum e fraction]Ordered By: [facility] Delaney Dietrich on 01-14-2024 Hematocrit (Bld) [Volume fraction] 37.9 % 37-47 [facility] Immature granulocytes/100 WB C Auto (Bld)Ordered By: [facility] Delaney Nya on 01-14-2024 Immature granulocytes/100 WBC (Bld) 0.200 % 0.0-0.9 [facility] Comment on above: IG% - Immature Granu locytes (promyelocytes, myelocytes and metamyelocytes) > 1% indicates that a LEFT SHIFT is Present. Laboratory - Chemistry and C hemistry - challengeOrdered By: [facility] Delaney Nya on 01-14-2024 Albumin/Globulin [Mass ratio] 1.1 {ratio} 0.9-2.4 [facility] ALP [Catalytic activity/Vol] 78 U/L 45-117 [facility] ALT [Catalytic activity/Vol] 19 U/L 13-56 [facility] Cholesterol in HDL [Mass/Vol] 55 mg/dL >40 [facility] Comment on above: The drugs N-Acetylcy steine and Metamizole may falsely depress this assay. Reference Range HDL <40 mg/dL Low HDL Cholesterol HDL >or= 60 mg/dL High HDL Cholesterol Cholesterol in LDL [Mass/Vol] 78 mg/dL 0-130 [facility] CO2 [Moles/Vol] 31.0 mmol/L 21.0-32.0 [facility] Globulin (S) [Mass/Vol] 3.5 g/dL 2.2-4.2 [facility] Urea nitrogen/Creatinine [Mass ratio] 17.6 mg/mg 10-20 [facility] Laboratory - Hematology and Cell countsOrdered By: [facility] Delaney Yna on 01-14-2024 MCH (RBC) [Entitic mass] 30.7 pg 27.0-32.0 [facility] MCHC (RBC) [Mass/Vol] 33.0 g/dL 32-36 [facility] Nucleated RBC/100 WBC (Bld) [Ratio] 0 % 0-5 [facility] Platelet mean volume (Bld) [Entitic vol] 9.1 fL 6.2-12.0 [facility] Platelets (Bld) [#/Vol] 230 10*3/uL 150-450 [facility] No Panel InformationOrdered By: [facility] Delaney Dietrich on 01-14-2024 Estimated GFR (MDRD) Amer 85 mL/min >60 [facility] Comment on above: GFR Calc Estimated GFR (MDRD) Non-Af Amer 70 mL/min >60 [facility] Comment on above: Non- GFR Calc Urine Microalbumin/Creatinine Ratio 12.0 mg/g CRE <30 [facility] VLDL Cholesterol 41 mg/dL 5-40 [facility] RBC Auto (Bld) [#/Vol]Ordere d By: [facility] Delaney Dietrich on 01-14-2024 RBC (Bld) [#/Vol] 4.07 10*6/uL 4.2-5.4 [facility] Serum or plasma calcium kari urement (mass/volume)Ordered By: [facility] Delaney Dietrich on 01-14-2024 Calcium [Mass/Vol] 8.9 mg/dL 8.5-10.1 [facility] Serum or plasma creatinine m easurement (mass/volume)Ordered By: [facility] Delaney Dietrich on 01-14-2024 Creatinine [Mass/Vol] 0.85 mg/dL 0.55-1.02 [facility] Comment on above: The validity of the calculated GFR & GFRAA in patients over 70 years has not been determined. Clinical correlation is essential. Serum or plasma thyroid stim ulating hormone (TSH) measurement (units/volume)Ordered By: [facility] Delaney Dietrich on 01-14-2024 TSH Qn 1.77 uIU/mL 0.358-3.74 [facility] Serum or plasma urea nitroge n measurement (mass/volume)Ordered By: [facility] Delaney Dietrich on 01-14-2024 Urea nitrogen [Mass/Vol] 15 mg/dL 7-18 [facility] Thin prep Papanicolaou smear with manual screeningOrdered By: [facility] Delaney Dietrich on 01-14-2024 Thin prep Papanicolaou smear with manual screening 3.7 g/dL 3.2-5.0 [facility] Thin prep Papanicolaou smear with manual screening 16 U/L 15-37 [facility] Thin prep Papanicolaou smear with manual screening 4 5-15 [facility] Thin prep Papanicolaou smear with manual screening 25.9 mg/L NO RANGE EST. [facility] Urine creatinine measurement (mass/volume)Ordered By: [facility] Delaney Dietrich on 01-14-2024 Creatinine (U) [Mass/Vol] 215.00 mg/dL NO RANGE EST. [facility] Absolute lymphocyte counton 10-04-2022 Lymphocytes Auto (Unsp spec) [#/Vol] 1.87 10*3/uL 0.83-4.51 [facility] Work Phone: Basophil percentageon 2021 Basophils/100 WBC (Bld) 0.3 % 0-1 [facility] Work Phone: Bilirubin [Mass/Vol] 0.40 mg/dL 0.20-1.00 [facility] Work Phone: Comment on above: For patients on eltr ombopag therapy, use of Dimension Witt TBIL is not recommended. Chloride [Moles/Vol] 110 mmol/L 98-107 [facility] Work Phone: Cholesterol [Mass/Vol] 184 mg/dL <200 [facility] Work Phone: Comment on above: <200 mg/dL Desirable 200-240 mg/dL Borderline >240 mg/dL High Risk Eosinophils/100 WBC (Bld) 1.2 % 0-5 [facility] Work Phone: Glucose [Mass/Vol] 105 mg/dL 74-106 [facility] Work Phone: Comment on above: Fasting Glucose resu lt from 100 to 125 mg/dL suggests IMPAIRED HOMEOSTASIS per A.D.A. criteria. Neutrophils (Bld) [#/Vol] 3.6 10*3/uL 2.0-7.7 [facility] Work Phone: Neutrophils/100 WBC (Bld) 60.3 % 47-70 [facility] Work Phone: Potassium [Moles/Vol] 4.0 mmol/L 3.5-5.1 [facility] Work Phone: Protein [Mass/Vol] 7.4 g/dL 6.4-8.2 [facility] Work Phone: [phone] Sodium [Moles/Vol] 142 mmol/L 136-145 [facility] Work Phone: [phone] Triglyceride [Mass/Vol] 209 mg/dL <199 [facility] Work Phone: [phone] Comment on above: The drugs N-Acetylcy steine and Metamizole may falsely depress this assay.Serum Triglycerides Reference Interval Normal <150 mg/dL Borderline high 150 - 199 mg/dL High 200 - 499 mg/dL Very High > or = 500 mg/dL WBC (Bld) [#/Vol] 5.9 10*3/uL 4.4-11.0 [facility] Work Phone: [phone] Blood erythrocytes count (nu mber/volume)on 10-04-2022 RBC (Bld) [#/Vol] 4.29 10*6/uL 4.2-5.4 [facility] Work Phone: [phone] Blood hemoglobin measurement (mass/volume)on 10-04-2022 Hemoglobin (Bld) [Mass/Vol] 13.0 g/dL 12.0-15.0 [facility] Work Phone: Blood lymphocytes/100 leukoc yteson 10-04-2022 Lymphocytes/100 WBC (Bld) 31.7 % 19-41 [facility] Work Phone: [phone] Blood monocytes/100 leukocyt eson 10-04-2022 Monocytes/100 WBC (Bld) 6.3 % 0-10 [facility] Work Phone: [phone] Blood platelet mean volumeon 10-04-2022 Platelet mean volume (Bld) [Entitic vol] 9.5 fL 6.2-12.0 [facility] Work Phone: [phone] Determination of erythrocyte mean corpuscular volume (MCV)on 10-04-2022 MCV (RBC) [Entitic vol] 93.2 fL 81-99 [facility] Work Phone: [phone] Hematocrit Auto (Bld) [Volum e fraction]on 10-04-2022 Hematocrit (Bld) [Volume fraction] 40.0 % 37-47 [facility] Work Phone: [phone] Laboratory - Chemistry and C hemistry - challengeon 10-04-2022 ALP [Catalytic activity/Vol] 85 U/L 45-117 [facility] Work Phone: [phone] ALT [Catalytic activity/Vol] 16 U/L 13-56 [facility] Work Phone: [phone] CO2 [Moles/Vol] 30.0 mmol/L 21.0-32.0 [facility] Work Phone: [phone] Globulin (S) [Mass/Vol] 3.5 g/dL 2.2-4.2 [facility] Work Phone: [phone] Urea nitrogen/Creatinine [Mass ratio] 14.7 mg/mg 10-20 [facility] Work Phone: [phone] Laboratory - Hematology and Cell countson 10-04-2022 Erythrocyte distribution width (RBC) [Entitic vol] 43.8 fL 35.1-43.9 [facility] Work Phone: [phone] Erythrocyte distribution width (RBC) [Ratio] 12.8 % 11.6-14.6 [facility] Work Phone: [phone] Immature granulocytes/100 WBC (Bld) 0.200 % 0.0-0.9 [facility] Work Phone: [phone] Comment on above: IG% - Immature Granu locytes (promyelocytes, myelocytes and metamyelocytes) > 1% indicates that a LEFT SHIFT is Present. MCH (RBC) [Entitic mass] 30.3 pg 27.0-32.0 [facility] Work Phone: [phone] Nucleated RBC/100 WBC (Bld) [Ratio] 0 % 0-5 [facility] Work Phone: [phone] MCHC Auto (RBC) [Mass/Vol]on 10-04-2022 MCHC (RBC) [Mass/Vol] 32.5 g/dL 32-36 [facility] Work Phone: [phone] Panel Informationon 10-04 Estimated GFR (MDRD) Amer 82 mL/min >60 [facility] Work Phone: Comment on above: GFR Calc Estimated GFR (MDRD) Non-Af Amer 68 mL/min >60 [facility] Work Phone: Comment on above: Non- GFR Calc Troponin I High Sensitivity 6 pg/mL 3.0-54.0 [facility] Work Phone: Comment on above: Please Note: New Funmilayo t Units and Gender Specific Reference Ranges. For more information see Policy Stat Procedure Witt High Sensitivity Troponin (TNIH) and attachments. Platelets bldon 10-04-2022 Platelets (Bld) [#/Vol] 272 10*3/uL 150-450 [facility] Work Phone: Serum or plasma albumin kari urement (mass/volume)on 10-04-2022 Albumin [Mass/Vol] 3.9 g/dL 3.2-5.0 [facility] Work Phone: Serum or plasma albumin/glob ulin mass ratioon 10-04-2022 Albumin/Globulin [Mass ratio] 1.1 {ratio} 0.9-2.4 [facility] Work Phone: Serum or plasma calcium kari urement (mass/volume)on 10-04-2022 Calcium [Mass/Vol] 9.0 mg/dL 8.5-10.1 [facility] Work Phone: Serum or plasma cholesterol in HDL measurement (mass/volume)on 10-04-2022 Cholesterol in HDL [Mass/Vol] 53 mg/dL >40 [facility] Work Phone: Comment on above: The drugs N-Acetylcy steine and Metamizole may falsely depress this assay. Reference Range HDL <40 mg/dL Low HDL Cholesterol HDL >or= 60 mg/dL High HDL Cholesterol Serum or plasma cholesterol in VLDL measurement (mass/volume)on 10-04-2022 Cholesterol in VLDL [Mass/Vol] 42 mg/dL 5-40 [facility] Work Phone: [phone] Serum or plasma creatinine m easurement (mass/volume)on 10-04-2022 Creatinine [Mass/Vol] 0.88 mg/dL 0.55-1.02 [facility] Work Phone: Comment on above: The validity of the calculated GFR & GFRAA in patients over 70 years has not been determined. Clinical correlation is essential. Serum or plasma low density lipoprotein (LDL) cholesterol measurement (mass/volume)on 10-04-2022 Cholesterol in LDL [Mass/Vol] 89 mg/dL 0-130 [facility] Work Phone: Serum or plasma urea nitroge n measurement (mass/volume)on 10-04-2022 Urea nitrogen [Mass/Vol] 13 mg/dL 7-18 [facility] Work Phone: Thin prep Papanicolaou smear with manual screeningon 10-04-2022 Thin prep Papanicolaou smear with manual screening 15 U/L 15-37 [facility] Work Phone: Thin prep Papanicolaou smear with manual screening 2 5-15 [facility] Work Phone: Vital Signs Date Time Vital Sign Value Performing Clinician Facility 06-03-2025 07:38-0400 Body height 154.94 cm [facility] Work Phone: [facility] 06-03-2025 07:38-0400 Body mass index (BMI) [Ratio] 25.9 kg/m2 [facility] Work Phone: [facility] 06-03-2025 07:38-0400 Body weight 62.14 kg [facility] Work Phone: [facility] 06-03-2025 07:38-0400 Diastolic blood pressure 77 mm[Hg] [facility] Work Phone: [facility] 06-03-2025 07:38-0400 Heart rate 92 /min [facility] Work Phone: [facility] 06-03-2025 07:38-0400 Respiratory rate 18 /min [facility] Work Phone: [facility] 06-03-2025 07:38-0400 SaO2% (BldA) [Mass fraction] 97 % [facility] Work Phone: [phone] [place] [address] 06-03-2025 07:38-0400 Systolic blood pressure 126 mm[Hg] [facility] Work Phone: [phone] [place] [address] 04-07-2025 10:01-0400 Body temperature 98.2 [degF] [facility] Work Phone: [phone])564-594536 [place] [address] 04-07-2025 10:01-0400 Body weight 62.14 kg [facility] Work Phone: [phone] [place] [address] 04-07-2025 10:01-0400 Diastolic blood pressure 70 mm[Hg] [facility] Work Phone: [phone] [place] [address] 04-07-2025 10:01-0400 Heart rate 67 /min [facility] Work Phone: [phone] [place] [address] 04-07-2025 10:01-0400 Respiratory rate 14 /min [facility] Work Phone: [phone] [place] [address] 04-07-2025 10:01-0400 SaO2% (BldA) [Mass fraction] 99 % [facility] Work Phone: [phone] [place] [address] 04-07-2025 10:01-0400 Systolic blood pressure 110 mm[Hg] [facility] Work Phone: [phone] [place] [address] 02-13-2025 14:57-0400 Diastolic blood pressure 91 mm[Hg] [facility] Work Phone: [phone] [place] [address] 02-13-2025 14:57-0400 Systolic blood pressure 191 mm[Hg] [facility] Work Phone: [phone] [place] [address] 02-13-2025 14:21-0400 Body height 154.94 cm [facility] Work Phone: [phone] [place] [address] 02-13-2025 14:21-0400 Body mass index (BMI) [Ratio] 26.2 kg/m2 [facility] Work Phone: [phone] [place] [address] 02-13-2025 14:21-0400 Body weight 63.04 kg [facility] Work Phone: [facility] 02-13-2025 14:21-0400 Heart rate 81 /min [facility] Work Phone: [facility] 02-13-2025 14:21-0400 Respiratory rate 18 /min [facility] Work Phone: [facility] 02-13-2025 14:21-0400 SaO2% (BldA) [Mass fraction] 96 % [facility] Work Phone: [facility] 11-20-2024 11:46-0500 Body temperature 98.01 [degF] [facility]PER[employer] Work Phone: [facility] 11-20-2024 11:46-0500 Body weight 63.9 kg [facility]o [facility] HOST/HOSTESS [employer]OUND.COILER OPERATOR Work Phone: [facility] 11-20-2024 11:46-0500 Diastolic blood pressure 102 mm[Hg] Garo Pendlebury HOST/HOSTESS [employer]OUND.COILER OPERATOR Work Phone: [facility] 11-20-2024 11:46-0500 Heart rate 92 /min Garo Pendle[place] HOST/HOSTESS [employer].COILER OPERATOR Work Phone: [facility] 11-20-2024 11:46-0500 Respiratory rate 20 /min [facility] HOST/HOSTESS [employer].COILER OPERATOR Work Phone: [facility] 11-20-2024 11:46-0500 SaO2% (BldA) [Mass fraction] 98 % [facility] HOST/HOSTESS [employer].COILER OPERATOR Work Phone: [facility] 11-20-2024 11:46-0500 Systolic blood pressure 160 mm[Hg] Garo Pendle[place] HOST/HOSTESS [employer].COILER OPERATOR Work Phone: [facility] 07-15-2024 19:26-0400 Diastolic blood pressure 84 mm[Hg] Garo Pendle[place] HOST/HOSTESS [employer].COILER OPERATOR Work Phone: [facility] 07-15-2024 19:26-0400 Systolic blood pressure 166 mm[Hg] [facility] HOST/HOSTESS [employer].COILER OPERATOR Work Phone: [facility] 07-15-2024 18:51-0400 Body temperature 98.6 [degF] Garo [facility] HOST/HOSTESS [employer].COILER OPERATOR Work Phone: [facility] 07-15-2024 18:51-0400 Body weight 63 kg [facility]oevan [facility] HOST/HOSTESS GR[employer].COILER OPERATOR Work Phone: [facility] 07-15-2024 18:51-0400 Heart rate 79 /min [facility] HOST/HOSTESS [employer].COILER OPERATOR Work Phone: [facility] 07-15-2024 18:51-0400 Respiratory rate 18 /min Garo [facility] HOST/HOSTESS GR[employer].COILER OPERATOR Work Phone: [facility] 07-15-2024 18:51-0400 SaO2% (BldA) [Mass fraction] 98 % [facility] HOST/HOSTESS GR[employer].COILER OPERATOR Work Phone: [facility] 10-01-2023 09:42-0500 Body temperature 97.4 [degF] [facility] Work Phone: [facility] 10-01-2023 09:42-0500 Diastolic blood pressure 49 mm[Hg] [facility] Work Phone: [facility] 10-01-2023 09:42-0500 Heart rate 75 /min [facility] Work Phone: [facility] 10-01-2023 09:42-0500 Respiratory rate 16 /min [facility] Work Phone: [facility] 10-01-2023 09:42-0500 SaO2% (BldA) [Mass fraction] 97 % [facility] Work Phone: [facility] 10-01-2023 09:42-0500 Systolic blood pressure 112 mm[Hg] [facility] Work Phone: [facility] 10-01-2023 08:01-0500 Body height 154.94 cm [facility] Work Phone: [phone] [place] [address] 10-01-2023 08:01-0500 Body mass index (BMI) [Ratio] 25.8 kg/m2 [facility] Work Phone: [phone])870-854836 [place] [address] 10-01-2023 08:01-0500 Body weight 62 kg [facility] Work Phone: [phone])553-518736 [place] [address] 08-16-2023 14:40-0400 Body mass index (BMI) [Ratio] 25.9 kg/m2 [facility] Work Phone: [phone])340-225836 [place] [address] 08-16-2023 14:40-0400 Body temperature 97.1 [degF] [facility] Work Phone: [phone])647-452236 [place] [address] 08-16-2023 14:40-0400 Body weight 62.36 kg [facility] Work Phone: [phone])652-899036 [place] [address] 08-16-2023 14:40-0400 Diastolic blood pressure 71 mm[Hg] [facility] Work Phone: [phone] [place] [address] 08-16-2023 14:40-0400 Heart rate 67 /min [facility] Work Phone: [phone])685-804036 [place] [address] 08-16-2023 14:40-0400 Respiratory rate 17 /min [facility] Work Phone: [phone])[phone] [place] [address] 08-16-2023 14:40-0400 SaO2% (BldA) [Mass fraction] 95 % [facility] Work Phone: [phone])359-976036 [place] [address] 08-16-2023 14:40-0400 Systolic blood pressure 120 mm[Hg] [facility] Work Phone: [phone] [place] [address] Encounters Encounter Date Encounter Type Care Provider Facility Start: 06-04-2025 End: 06-04-2025 ambulatory ALICJA ODOM Facility:[facility] Start: 06-03-2025 End: 06-03-2025 Patient encounter procedure Alfie SAHU -[facility] Work Phone: Start: 06-03-2025 End: 06-03-2025 ambulatory [facility] Work Phone: -[facility] Start: 06-03-2025 End: 06-03-2025 ambulatory Alfie Velez Facility:[facility] Start: 04-07-2025 End: 04-07-2025 ambulatory [facility] Work Phone: [facility] Work Phone: Start: 04-07-2025 End: 04-07-[address] Dami Bynum [facility] Start: 04-07-2025 End: 04-07-2025 Patient encounter procedure Laura SAHU -[facility] Work Phone: Start: 04-07-2025 End: 04-07-2025 ambulatory [facility] Work Phone: [facility] Work Phone: Start: 04-07-2025 End: 04-07-2025 ambulatory Dami Bynum Facility:[facility] Start: 03-04-2025 Non-patient / Non-visit Dr. Carmelo ewing MD -[facility] Start: 03-04-2025 End: 03-04-2025 ambulatory [facility] Work Phone: [facility] Work Phone: Start: 03-04-2025 End: 03-04-[address] Dami Bynum MD -Cardiovascular Services Work Phone: Start: 03-04-2025 End: 03-04-2025 ambulatory Dami Bynum Facility:[facility] Start: 02-13-2025 End: 02-13-[address] Dami Bynum MD -[facility] Work Phone: Start: 02-13-2025 End: 02-13-2025 ambulatory Dami Bynum Facility:[facility] Start: 12-23-2024 End: 12-23-2024 ambulatory [facility] Work Phone: [facility] Work Phone: Start: 12-23-2024 End: 12-23-2024 Patient encounter procedure [facility] Delaney BARNETT -Laboratory, Katy Foreman Start: 12-23-2024 End: 12-23-2024 ambulatory [facility] Facility:[facility] Start: 11-20-2024 End: 11-20-2024 ambulatory ARI MENDEZ Facility:[facility] Start: 11-20-2024 End: 11-20-2024 Office outpatient visit 25 minutes Garo He APRN.COILER OPERATOR Work Phone: [facility] Comment on above: Sinobronchitis (Prim peña Dx) Start: 08-07-2024 End: 08-07-2024 ambulatory [facility] Facility:[facility] Start: 07-15-2024 End: 07-15-2024 Subsequent hospital visit by physician Xr [facility] Work Phone: Radiology Comment on above: Pain of left upper e xtremity [M79.602] Start: 07-15-2024 End: 07-15-2024 ambulatory DAVON ABARCA Facility:[facility] Start: 07-15-2024 End: 07-15-2024 Office outpatient visit 15 minutes Garo He HOST/HOSTESS GROUND.COILER OPERATOR Work Phone: [facility] Comment on above: Pain of left upper e xtremity (Primary Dx) Start: 01-14-2024 End: 01-14-2024 ambulatory [facility] Work Phone: [facility] Work Phone: Start: 01-14-2024 End: 01-14-2024 Patient encounter procedure [facility] Work Phone: [facility]-Laboratory, [facility] Start: 10-01-2023 Non-patient / Non-visit [facility] Work Phone: [facility] Start: 10-01-2023 End: 10-01-2023 Admission to same day surgery center [facility] Work Phone: [facility]-Endoscopy Work Phone: Start: 10-01-2023 End: 10-01-2023 ambulatory [facility] Work Phone: [facility] Work Phone: Start: 08-16-2023 End: 08-16-2023 Patient encounter procedure [facility] Work Phone: [facility] Work Phone: Start: 10-04-2022 End: 10-04-2022 ambulatory [facility] Work Phone: Start: 10-04-2022 End: 10-04-2022 Patient encounter procedure [facility]Labor[facility] Start: 06-16-2020 Patient encounter status [facility] Procedures Date Procedure Procedure Detail Performing Clinician Start: 02-13-2025 Evaluation of diagno stic study results [facility] Work Phone: Start: 07-15-2024 Radex forearm 2 views J bridgette He HOST/HOSTESS GROUND.COILER OPERATOR Work Phone: Start: 10-01-2023 Colonoscopy [facility] Work Phone: Start: 10-21-2016 History of placement of stent for coronary artery disease History of coronary artery stent placement Alfie SAHU Comment on above: 2.5 x 28 mm Xience s tent overlapped with a 2.5 x 8 mm Xience stent to dRCA 10/21/16 Plan of Treatment Date Care Activity Detail Author Start: 2029 RSV Vaccine (1 - 1-dose 75+ series) RSV Vaccine (1 - 1-dose 75+ series) [facility] Start: 08-01-2026 Diabetes Screening Diabetes Screening [facility] Start: 10-29-2024 Advance Directive Discussion Advance Directive Discussion [facility] Start: 06-29-2024 Covid-19 Vaccine () Covid-19 Vaccine () [facility] Start: 06-29-2024 Covid-19 Vaccine () Covid-19 Vaccine () [facility] Start: 06-29-2024 Influenza vaccination Influenza Vaccine (#1) [facility] Start: 10-29-2023 Advance Directive Discussion Advance Directive Discussion [facility] Start: 10-01-2023 Colonoscopy w/biopsy single/multiple COLONOSCOPY AND BIOPSY [facility] Start: 10-01-2023 Patient discharge [facility] Start: 2019 Pneumococcal Vaccine: 65+ (1 of 1 - PCV) Pneumococcal Vaccine: 65+ (1 of 1 - PCV) [facility] Start: 2019 Screening for osteoporosis Bone Density Screening [facility] Start: 2014 RSV Vaccine (1 - 1-dose 60+ series) RSV Vaccine (1 - 1-dose 60+ series) [facility] Start: 2004 Pneumococcal Vaccine: 50+ (1 of 1 - PCV) Pneumococcal Vaccine: 50+ (1 of 1 - PCV) [facility] Start: 2004 Shingrix Vaccine (1 of 2) Shingrix Vaccine (1 of 2) [facility] Start: 1999 Lipid panel Lipid Screening [facility] Start: 1999 Screening for malignant neoplasm of colon [facility] Start: 1994 Screening for malignant neoplasm of breast Mammogram Screening [facility] Start: 1973 Urine microalbumin profile DTaP,Tdap,Td Vaccine (1 - Tdap) [facility] Start: 1972 Anxiety Screening Anxiety Screening [facility] Start: 1972 Depression Screening Depression Screening [facility] Start: 1972 Hepatitis C screening Hepatitis C Screening [facility] Basic metabolic 2008 panel with ionized calcium - Serum or Plasma [facility] CBC W Auto Different ial panel - Blood [facility] Colonoscopy [facility] Hepatic function panel [facility] Lipid 1996 panel - S arminda or Plasma [facility] Natriuretic peptide. B prohormone N-Terminal [Mass/volume] in Serum or Plasma [facility] Patient referral [facility] Work Phone: Payers Date Payer Category Payer Self-pay [id number] 2019 Unknown [facility] AND BL[facility] ANTH MEDICARE ADVANTAGE HMO [id number] 2019-Present [phone] [address] [place] [address] O [id number] 2019 Unknown [id number] Medicare ANTH MEDICARE PPO [id number] Medicare MEDICARE PART A B [id number] Unknown [id number] Unknown [id number] Unknown [id number] Unknown [id number] Unknown [id number] Unknown [id number] Unknown [id number] Unknown [id number] Unknown [id number] Social History Date Type Detail Facility Start: 05-10-2022 End: 10-01-2023 Tobacco smoking status OHIS Unknown if ever smoked [facility] Start: 1955 Sex Assigned At Female [facility] Start: 07-15-2024 Tobacco smoking status NHIS Ex-smoker [facility] History of tobacco use Current smoker [facility] History of tobacco use Cigarette Smoker [facility] Start: 07-15-2024 Tobacco use and exposure Smokeless tobacco non-user [facility] Start: 2020 End: 07-15-2024 History of Social function [facility] Start: 2020 End: 07-15-2024 Tobacco use panel [facility] National Score (1-100), lower number is lower risk Not on file [facility] Start: 1955 Sex assigned at Not on file [facility] Start: 10-01-2023 Tobacco smoking status NHIS Smokes tobacco daily (finding) [facility] Start: 01-06-2025 Sex Female (finding) [facility] Start: 04-07-2025 Tobacco smoking status NHIS Current Heavy tobacco smoker [facility] NEGATED: Highlighted row [facility] Medical Equipment Procedure Code Equipment Code Equipment [...] 10-01-2023 Cognitive function Level Of Consciousness Sedated [facility] Work Phone: 10-01-2023 Cognitive function Voice/Name [facility] Work Phone: Clinical Notes 10-01-2023 to 06-04-2025 Note Date & Type Note Facility 06-04-2025 Note HNO ID: [id number] Author: ALICJA ODOM APRN.CNP Service: ? Author Type: Nurse Practitioner Type: Progress Notes Filed: 06/04/2025 13:04 Note Text: Subjective Laine Marcial is a 69 year old female. HPI Yesterday patient awkwardly stepped off of a curb inverting her right ankle. She complains of pain to the lateral aspect of the ankle but otherwise denies any other injuries or health concerns. Review of Systems As above Objective BP 132/63 Pulse 73 Temp 36.7 ?C (98.1 ?F) Resp 20 Wt 61 kg (134 lb 7.7 oz) SpO2 100% Physical Exam Vitals and nursing note reviewed. Constitutional: General: She is not in acute distress. Appearance: Normal appearance. She is not ill-appearing. HENT: Head: Normocephalic. Pulmonary: Effort: Pulmonary effort is normal. Musculoskeletal: Comments: Swelling to the lateral malleolus of the right ankle with no obvious deformities noted. Mild diffuse tenderness of the lateral malleolus Skin: General: Skin is warm. Neurological: General: No focal deficit present. Mental Status: She is alert and oriented to person, place, and time. Psychiatric: Mood and Affect: Mood normal. Behavior: Behavior normal. ASSESSMENT/PLAN: 1. Injury of right ankle, initial encounter - ICD9: 959.7, ICD10: S99.911A -X-ray of the ankle shows possible small avulsion fracture to the lateral malleolus consistent with a sprain of the ankle. Patient will use an [id number] ankle brace as needed for support and follow-up closely with PCP if symptoms not improving. - XR ANKLE GENERAL 3V AP/LAT/OBL RIGHT Alicja Odom APRN.CNP [facility] 06-04-2025 Note HNO ID: [id number] Author: JERZY NICOLE Tech Service: ? Author Type: Artificial Pearl Maker Type: Progress Notes Filed: 06/04/2025 11:33 Note Text: Radiology Service Progress Note PATIENT NAME: Laine Marcial DATE OF SERVICE: June 04, 2025 TIME: 11:23 AM PATIENT IDENTITY VERIFICATION COMPLETED USING TWO (2) IDENTIFIERS: Name and Date of confirmed by patient verbally. FALL SCREENING: Has the patient had 2 falls in the last year or 1 fall with injury or currently using an Ambulatory Assistive Device (Walker, Cane, Wheelchair, Crutches, etc.)? No PATIENT GENDER DATA: Assigned female at . status: : No status: NO. PATIENT RELEVANT IMPLANT DATA REVIEWED: Yes PATIENT PRESENTS WITH AN IMPLANTABLE OR ATTACHED HIV PREVENTION SPECIALIST: No RADIOLOGY DEPARTMENT: General X-ray: Exam(s) Completed: Lower Extremity X-Ray(s): Ankle, Right PERIPHERAL IV DATA: Not applicable SIGNED BY: Alicia Benton June 04, 2025 11:23 AM [facility] 02-13-2025 Evaluation note Diagnosis Onset Date Resolution Peripheral arterial occlusive disease acute February 13 2:16pm Atherosclerosis of coronary artery of [place] heart without angina pectoris chronic February 13, 2025 2:16pm Essential hypertension chronic Ap ril 2024 2:16pm Hyperlipidemia chronic January 2:16pm [facility] Work Phone: 1(460) 552-152304-18-2025 Evaluation note* Diagnosis Onset Date Resolution Status Admit Date Peripheral arterial occlusiv e disease acute February 13, 2025 2:16pm Atherosclerosis of coronary artery of [place] heart without angina pectoris chronic February 13, 2025 2:16pm Essential hypertension chronic Ap ril 2024 2:16pm Hyperlipidemia chronic January 2:16pm Claudication acute April 07, 025 9:43am History of revascularization procedure of lower extremity acute Mar 9:43am Peripheral arterial occlusiv e disease acute April 07, 2025 9:43am [facility] Work Phone: 1(626) 917-805904-18-2025 Evaluation note* Diagnosis Onset Date Resolution Status Admit Date Peripheral arterial occlusiv e disease acute February 13, 2025 2:16pm Atherosclerosis of coronary artery of [place] heart without angina pectoris chronic February 132024 2:16pm Essential hypertension chronic Ap ril 2024 2:16pm Hyperlipidemia chronic January 2:16pm Claudication acute April 07 2 025 9:43am History of revascularization procedure of lower extremity acute Mar 9:43am Peripheral arterial occlusiv e disease acute April 07, 2025 9:43am Atherosclerosis of coronary artery of [place] heart without angina pectoris chronic June 032024 2:53pm Essential hypertension chronic 2024 2:53pm Hyperlipidemia chronic May 2:53pm Peripheral vascular disease chronic June 03, 2025 2:53pm History of coronary artery stent placement October 21, 2016 resolved June 03, 2025 2:53pm [facility] [employer] Work Phone: 1(660) 840-198604-18-2025 Evaluation note* Diagnosis Onset Date Resolution Status Admit Date Peripheral arterial occlusiv e disease acute February 13, 2025 2:16pm Atherosclerosis of coronary artery of [place] heart without angina pectoris chronic February 132024 2:16pm Essential hypertension chronic Ap 2024 2:16pm Hyperlipidemia chronic January 2:16pm Claudication acute April 07, 2 025 9:43am History of revascularization procedure of lower extremity acute Mar 9:43am Peripheral arterial occlusiv e disease acute April 07, 2025 9:43am Dyspnea on exertion acute 2024 2:53pm Atherosclerosis of coronary artery of [place] heart without angina pectoris chronic June 032024 2:53pm Essential hypertension chronic 2024 2:53pm Hyperlipidemia chronic May 2:53pm Peripheral vascular disease chronic June 03, 2025 2:53pm History of coronary artery stent placement October 21, 2016 resolved June 03, 2025 2:53pm [facility] Work Phone: 1(817) 579-851001-23-2025 NoteHNO ID: [id number] Author: GARO HE APRN.COILER OPERATOR Service: ? Author Type: Nurse Practitioner Type: [...] of care. This note was generated using ShopSquad/Ownza software. It may contain errors in wording, punctuation, or spelling. Garo He APRN.[facility]01-23-2025 History of Present illness Narrative* Garo He APRN.LILIYA - 11/20/2024 11:48 AM EST [...] of care. This note was generated using [employer]/Ownza software. It may contain errors in wording, punctuation, or spelling. Garo He APRN.COILER OPERATOR documented [facility] History of Present illness Narrative* Moshe Worrell, RT(R) - 07/15/2024 7:10 PM EDT Radiology [...] PATIENT PRESENTS WITH AN IMPLANTABLE OR ATTACHED HIV PREVENTION SPECIALIST: No RADIOLOGY DEPARTMENT: General X-ray: Exam(s) Completed: Upper Extremity X- Ray(s): Forearm, left andWrist, left PERIPHERAL IV DATA: Not applicable SIGNED BY: KATHRYN Emmanuel) July 15, 2024 7:03 PM documented in this encounterOhio[facility]09-17-2024 NoteHNO ID: [id number] Author: MOSHE WORRELL RT(R) Service: Radiology Author Type: Technologist [...] PATIENT PRESENTS WITH AN IMPLANTABLE OR ATTACHED HIV PREVENTION SPECIALIST: No RADIOLOGY DEPARTMENT: General X-ray: Exam(s) Completed: Upper Extremity X-Ray(s): Forearm, left and Wrist, left PERIPHERAL IV DATA: Not applicable SIGNED BY: KATHRYN Emmanuel) July 15, 2024 7:[address] [facility]09-17-2024 NoteHNO ID: [id number] Author: GARO HE APRN.COILER OPERATOR Service: ? Author Type: Nurse Practitioner Type: [...] fractures to this hand in the past. [id number]. Past medical history prescription medications allergies reviewed. [...] of care. This note was generated using [employer]/Own[employer] software. It may contain errors in wording, punctuation, or spelling. Garo He APRN.[facility]09-17-2024 History of Present illness Narrative* Garo He APRN.COILER OPERATOR - 07/15/2024 7:03 PM EDT Images from [...] fractures to this hand in the past. [id number]-[id number]. Past medical history prescription medications allergies reviewed. [...] of care. This note was generated using [employer]/Ownza software. It may contain errors in wording, punctuation, or spelling. Garo He APRN.LILIYA documented in this encounterOhio[facility]12-04-2023 History and physical note Author [facility] October 01, 2023 8:43am Note Date/Time October 01, 2023 8 :10am [facility] Medical Records Department [address] [place] [address] History & Physical Exam 10/01/23 0809 MR#: [id number] Acct: [id number] Name: LAINE LI Rep #:[id number] : 1955 67 From: Meghann Cano MD PCP: [facility] St elizabeth:[facility] Location: [facility] HPI - General General Date of Service: [...] Medical History Atherosclerosis of coronary artery of [place] heart without angina pectoris Breast ptosis Cancer [...] History of tonsillectomy S/P percutaneous transluminal angioplasty (BUILDING SERVICES COORDINATOR) with stent placement Social History Smoking Status: [...] 07:57) Discharge Is Pt Admitted From a Half-Way, or a [facility]: No After D/C, Where Do you Plan [...] (if applicable): CC: Dr. Meghann Cano MD; [facility]~ Signed [facility] Work Phone: 1(530) 255-865212-04-2023 [facility]WNor[facility] 10[facility]-2023 [facility] noteNo assessment information availableWNorwalk [facility] Hospital Work Phone: Evaluation note* Diagnosis Onset Date Resolution Status Constipation acute Screening for colon cancer a [facility] Screening for colon cancer a [facility] Work Phone: evaluation note* Diagnosis Onset Date Resolution Status Screening for colon cancer a [facility] Work Phone: Evaluation note* Diagnosis Pain of left upper extremity- Primary Pain of left upper extremity documented in this encounter [facility] note* Diagnosis Pain of left upper extremity documented in this encounter [facility] note* Diagnosis Sinobronchitis- Primary Unspecified sinusitis (chronic) documented in this encounter [facility] for referral (narrative)* Diagnostic Procedure Only (Urgent) - Closed Specialty Diagnoses / Procedures Referred By Elisa t Referred To Contact XR IMAGING Diagnoses Pain of left upper extremity Procedures XR FOREARM GENERAL 2V AP/LAT LEFT RADEX FOREARM 2 VIEWS Garo He APRN.COILER OPERATOR [address] [place] [address] [place] [address] Referral ID Status Reason Start Date Expiration Date V isits Requested Visits Authorized [id number] Closed Auto-Generate d Referral 07/15/2024 08/14/2025 1 1 * Diagnostic Procedure Only (Urgent) - Closed Specialty Diagnoses / Procedures Referred By Contac t Referred To Contact XR IMAGING Diagnoses Pain of left upper extremity Procedures XR WRIST INJURY 4V PA/LAT/OBL/SCAPH LEFT RADEX WRIST COMPLETE MINIMUM 3 VIEWS Garo He APRN.COILER OPERATOR [address] [place] [address] [place] [address] Referral ID Status Reason Start Date Expiration Date V isits Requested Visits Authorized [id number] Closed Auto-Generate d Referral 07/15/2024 08/14/[address] [facility] for referral (narrative)* Diagnostic Procedure Only (Urgent) - Closed Specialty Diagnoses / Procedures Referred By Contac t Referred To Contact XR IMAGING Diagnoses Pain of left upper extremity Procedures XR FOREARM GENERAL 2V AP/LAT LEFT RADEX FOREARM 2 VIEWS Garo He APRN.COILER OPERATOR [address] [place] [address] [place] [address] Referral ID Status Reason Start Date Expiration Date V isits Requested Visits Authorized [id number] Closed Auto-Generate d Referral 07/15/2024 08/14/2025 1 1 * Diagnostic Procedure Only (Urgent) - Closed Specialty Diagnoses / Procedures Referred By Contac t Referred To Contact XR IMAGING Diagnoses Pain of left upper extremity Procedures XR WRIST INJURY 4V PA/LAT/OBL/SCAPH LEFT RADEX WRIST COMPLETE MINIMUM 3 VIEWS Garo He APRN.COILER OPERATOR [address] [place] [address] [place] [address] Referral ID Status Reason Start Date Expiration Date V isits Requested Visits Authorized [id number] Closed Auto-Generate d Referral 07/15/2024 08/14/2025 1 1 [facility]ative)No reason for referral information availableWNorwalk Memorial Hospital Work Phone: Reason for visit Narrative* Diagnostic Procedure Only (Urgent) - Closed Specialty Diagnoses / Procedures Referred By Contac t Referred To Contact XR IMAGING Diagnoses Pain of left upper extremity Procedures XR FOREARM GENERAL 2V AP/LAT LEFT RADEX FOREARM 2 VIEWS Garo He APRN.LILIYA [address] [place] [address] [place] [address] Referral ID Status Reason Start Date Expiration Date V isits Requested Visits Authorized [id number] Closed Auto-Generate d Referral 07/15/2024 08/14/2025 1 1 [facility] Family History No Family History Records Found Relationship Condition Age at Onset Recorded Date/T haydee father Diabetes mellitus Unknown Cerebrovascular accident (CVA) Unknown Alzheimer's disease Unknown mother Diabetes mellitus Unknown Cardiac disease Unknown Hypertension Unknown Myocardial infarction Unknown brother Diabetes mellitus Unknown brother Hypertension Unknown sister Diabetes mellitus Unknown Advance Directives No Advanced Directives Records Found Advance Directive Response Recorded Date/ Time Living Will No September 30 1:59pm Power of [place] No September 30, 2021 1:59pm Advance Directive Response Recorded Date/ Time Living Will No September 27, 023 1:47pm Power of [place] No September 27, 2023 1:47pm Advance Directive Response Recorded Date/ Time Living Will No September 27, 2 023 2:47pm Power of [place] No September 27, 2023 2:47pm Chief Complaint and Reason for Visit Chief Complaint COLON CANCER SCREENI NG Reason for Visit Constipation Screening for colon cancer Screening for colon cancer Reason for Visit Screening for colon cancer Chief Complaint Admit Date CAD W/ RCA (NYA) February 13, 2025 2 :16pm PVD, CLAUDICATION March 04, 2025 1:26pm Reason for Visit Admit Date Peripheral arterial occlusive disease Ap ril 2024 2:16pm Atherosclerosis of coronary artery of [place] heart without angina pectoris February 13, 2025 2:16pm Essential hypertension February 13, 2025 2:16pm Hyperlipidemia February 13, 2025 2:1 6pm Chief Complaint Admit Date CAD W/ RCA (NYA) February 13, 2025 2 :16pm PVD, CLAUDICATION March 04, 2025 1:26pm LE studies April 07, 2025 9:43 am Reason for Visit Admit Date Peripheral arterial occlusive disease Ap ril 2024 2:16pm Atherosclerosis of coronary artery of [place] heart without angina pectoris February 13, 2025 2:16pm Essential hypertension February 13, 2025 2:16pm Hyperlipidemia February 13, 2025 2:1 6pm Claudication April 07, 2025 9:43 am History of revascularization procedure o f lower extremity April 07, 2025 9:43am Peripheral arterial occlusive disease Ju ne 2024 9:43am Chief Complaint Admit Date CAD W/ RCA (NYA) February 13, 2025 2 :16pm PVD, CLAUDICATION March 04, 2025 1:26pm LE studies April 07, 2025 9:43 am 3 M FU June 03, 2025 2:5 3pm Reason for Visit Admit Date Peripheral arterial occlusive disease Ap ril 2024 2:16pm Atherosclerosis of coronary artery of [place] heart without angina pectoris February 13, 2025 2:16pm Essential hypertension February 13, 2025 2:16pm Hyperlipidemia February 13, 2025 2:1 6pm Claudication April 07, 2025 9:43 am History of revascularization procedure o f lower extremity April 07, 2025 9:43am Peripheral arterial occlusive disease Ju ne 2024 9:43am Atherosclerosis of coronary artery of [place] heart without angina pectoris June 03, 2025 2:53pm Essential hypertension June 03, 2025 2:53pm Hyperlipidemia June 03, 2025 2:5 3pm Peripheral vascular disease June 03, 2025 2:53pm History of coronary artery stent placeme nt June 03, 2025 2:53pm Reason for Visit Admit Date Peripheral arterial occlusive disease Ap ril 2024 2:16pm Atherosclerosis of coronary artery of [place] heart without angina pectoris February 13, 2025 2:16pm Essential hypertension February 13, 2025 2:16pm Hyperlipidemia February 13, 2025 2:1 6pm Claudication April 07, 2025 9:43 am History of revascularization procedure o f lower extremity April 07, 2025 9:43am Peripheral arterial occlusive disease Ju ne 2024 9:43am Dyspnea on exertion June 03, 2025 2:5 3pm Atherosclerosis of coronary artery of [place] heart without angina pectoris June 03, 2025 2:53pm Essential hypertension June 03, 2025 2:53pm Hyperlipidemia June 03, 2025 2:5 3pm Peripheral vascular disease June 03, 2025 2:53pm History of coronary artery stent placeme nt June 03, 2025 2:53pm Summary Purpose Additional Source Comments Goals (unrecognized [...] Team Status: Active Member Role Status Dates [facility] Primary Care Provider A ctive Team Status: Inactive Member Role Status Dates [facility] Primary Care Provider, Referring Provider Active Dr. Meghann Cano MD Attending Provider Active Team Status: Active Member Role Status Dates [facility] Primary Care Provider, Referring Provider Active Dr. Meghann Cano MD Attending Provider, Other Pro vider Active Team Status: Inactive Member Role Status Dates [facility] Primary Care Provider A ctive Delaney Dietrich LEAD [employer]ER, LEAD BLENDER-C Attending Provider, Referrin g Provider Active Guest Experience Manager Relationship Specialty Start Date End Date Davon Abarca [address] [place] [address] PCP - General Family Medicine 10/27/20 Guest Experience Manager Relationship Specialty Start Date End Date Davon Abarca [address] [place], [place] [id number] PCP - General Family Medicine 10/27/20 Guest Experience Manager Relationship Specialty Start Date End Date Ari Mendez CNP [address] [place], [place] [id number] PCP - General Family Medicine 11/20/24 Team Status: Inactive Member Role Status Dates [facility] Primary Care Provider Active Start: December 232024 End: December 23, 2024 Delaney Dietrich Ney, LEAD BLENDER-C Attending Provider Active Start: December 23, 2024 End: December 23, 2024 Delaney Dietrich [facility], LEAD BLENDER-C Referring Provider Active Start: December 23, 2024 End: December 23, 2024 Team Status: Inactive Member Role Status Dates [facility] Primary Care Provider A ctive Start: February 13, 2025 End: February 13, 2025 [facility] Referring Provider Acti ve Start: February 13, 2025 End: February 13, 2025 Dr. Dami Bynum MD Attending Provider Active Start: February 13, 2025 End: February 13, 2025 Team Status: Inactive Member Role Status Dates [facility] Primary Care Provider A ctive Start: March 04, 2025 End: March 04, 2025 Dr. Dami Bynum MD Attending Provider Active Start: March 04, 2025 End: March 04, 2025 Dr. Dami Bynum MD Referring Provider Active Start: March 04, 2025 End: March 04, 2025 Team Status: Active Member Role Status Dates [facility] Primary Care Provider A ctive Start: March 04, 2025 Dr. Carmelo Davies MD Attending Provider Active S tart: March 04, 2025 Dr. Dami Bynum MD Referring Provider Active Start: March 04, 2025 Team Status: Inactive Member Role Status Dates [facility] Primary Care Provider A ctive Start: April 07, 2025 End: April 07, 2025 ADELINA Fajardo Attending Provider Active Star t: April 07, 2025 End: April 07, 2025 Dr. Dami Bynum MD Referring Provider Active Start: April 07, 2025 End: April 07, 2025 Team Status: Inactive Member Role Status Dates [facility] Primary Care Provider A ctive Start: April 07, 2025 End: April 07, 2025 Dr. Dami Bynum MD Attending Provider Active Start: April 07, 2025 End: April 07, 2025 Dr. Dami Bynum MD Referring Provider Active Start: April 07, 2025 End: April 07, 2025 Team Status: Active Member Role/Relationship Status Dates [facility] Primary Care Provider A ctive Team Status: Inactive Member Role/Relationship Status Dates [facility] Primary Care Provider A ctive Start: February 13, 2025 End: February 13, 2025 [facility] Referring Provider Acti ve Start: February 13, 2025 End: February 13, 2025 Dr. Dami Bynum MD Attending Provider Active Start: February 13, 2025 End: February 13, 2025 Team Status: Inactive Member Role/Relationship Status Dates [facility] Primary Care Provider A ctive Start: March 04, 2025 End: March 04, 2025 Dr. Dami Bynum MD Attending Provider Active Start: March 04, 2025 End: March 04, 2025 Dr. Dami Bynum MD Referring Provider Active Start: March 04, 2025 End: March 04, 2025 Team Status: Active Member Role/Relationship Status Dates [facility] Primary Care Provider A ctive Start: March 04, 2025 Dr. Carmelo Davies MD Attending Provider Active S tart: March 04, 2025 Dr. Dami Bynum MD Referring Provider Active Start: March 04, 2025 Team Status: Inactive Member Role/Relationship Status Dates [facility] Primary Care Provider A ctive Start: April 07, 2025 End: April 07, 2025 ADELINA Fajardo Attending Provider Active Star t: April 07, 2025 End: April 07, 2025 Dr. Dami Bynum MD Referring Provider Active Start: April 07, 2025 End: April 07, 2025 Team Status: Inactive Member Role/Relationship Status Dates [facility] Primary Care Provider A ctive Start: April 07, 2025 End: April 07, 2025 Dr. Dami Bynum MD Attending Provider Active Start: April 07, 2025 End: April 07, 2025 Dr. Dami Bynum MD Referring Provider Active Start: April 07, 2025 End: April 07, 2025 Team Status: Inactive Member Role/Relationship Status Dates [facility] Primary Care Provider A ctive Start: June 03, 2025 End: June 03, 2025 [facility] Referring Provider Acti ve Start: June 03, 2025 End: June 03, 2025 ADELINA Ling Attending Provider Active St art: June 03, 2025 End: June 03, 2025 Team Status: Inactive Member Role/Relationship Status Dates [facility] Primary Care Provider A ctive Start: June 03, 2025 End: June 03, 2025 ADELINA Ling Attending Provider Active St art: June 03, 2025 End: June 03, 2025 ADELINA Ling Referring Provider Active St art: June 03, 2025 End: June 03, 2025 Source Comments (unrecognize d section and content) In the event this informatio n is protected by the Federal Confidentiality of Alcohol and Drug Abuse Patient Records regulations: The Federal rules restrict any use of the information to criminally investigate or prosecute any alcohol or drug abuse patient.[facility] the event this information is protected by the Federal Confidentiality of Alcohol and Drug Abuse Patient Records regulations: The Federal rules restrict any use of the information to criminally investigate or prosecute any alcohol or drug abuse patient.[facility] the event this information is protected by the Federal Confidentiality of Alcohol and Drug Abuse Patient Records regulations: The Federal rules restrict any use of the information to criminally investigate or prosecute any alcohol or drug abuse patient.[facility] Reason for Visit (unrecogniz ed section and content) Reason Comments Fall Pt fell today this a fternoon outside of her home, attmepted to stop herself and fell onto her L arm. Pain radiates up to elbow and hand is numb Reason Comments Cough Chest congestion, so re throat x 2.5 weeks INFORMATION SOURCE (unrecogn ized section and content) DATE CREATED AUTHOR 06/07/2025 [facility] DATE CREATED AUTHOR AUTHOR'S ORGANIZ ATION 06/13/2025 [facility] FOR RECORDS PERTAINING TO PATIENTS WHO [...] BE BASED ON THE PRIMARY CLINICAL RECORDS. [facility] [employer] provides no warranty or guarantee of the accuracy or completeness of information in this document.
== END | disposition home or self-care (01) ==
LOC: LABSPEC 14:37
PROVIDERS: Referring Provider Nurse Practitioner Family; Visit Provider Nurse Practitioner Family
DX: R30.0 Dysuria (principal)
CPT/HCPCS: 36415; 87077; 87086; 87088; 87186